=== PATIENT | male | born 1945 | race American Indian/Alaskan Native ===

== ENCOUNTER → 2017-09-18 12:40 | Outpatient (CLI) | payer MEDICARE, MEDICAID, OTHER, SELFPAY ==
[2017-09-18 16:02] LABS: Hep C Virus Ab w/Reflex Quant NEGATIVE s/c (NEGATIVE)
== END ==
PROVIDERS: Family Provider Family Medicine; PCP Family Medicine; Visit Provider Internal Medicine Gastroenterology
DX: Z11.59 Encounter for screening for other viral diseases (principal)
CPT/HCPCS: 36415; 86803

== ENCOUNTER 2018-11-25 07:22 | Emergency (ER) | payer MEDICARE, MEDICAID, OTHER, SELFPAY ==
[2018-11-25] VITALS (7 sets, daily range): BP systolic 110–154; BP diastolic 80–94; PULSE 86–138; RESP 10–20; TEMP 36.3; O2SAT 100; BMI 23.6
--- NOTE | 2018-11-25 07:32 | DI.RAD.S_ITS ---
PROCEDURE: XR CHEST 1V INDICATIONS: short of breath TECHNIQUE: One view of the chest was acquired. COMPARISON: [facility], , CHEST 1 VIEW, 05/03/2017, 11:54. FINDINGS: Surgical changes and devices: None. Lungs and pleura: Mildly prominent. Mild appearance of increased pulmonary vascularity.. There is minimal unchanged blunting of the costophrenic angles. No pneumothorax. Mediastinum: Mediastinal contours appear normal. Heart size is normal. Bones and chest wall: No suspicious bony lesions. Overlying soft tissues appear unremarkable. IMPRESSION: Mild increased vascularity reflective of mild edema. Unchanged costophrenic angle blunting since 2018 likely scarring. Dictated by: Sharda Mackenzie M.D. on 11/25/2018 at 8:03 Approved by: Sharda Mackenzie M.D. on 11/25/2018 at 8:04
--- NOTE | 2018-11-25 07:42 | ED.ARRPALP ---
HPI - Arrhythmia/Palpitations General Chief Complaint: Arrhythmia/Palpitations Stated Complaint: hard time breathing Time Seen by Provider: 11/25/18 07:32 Source: patient Mode of arrival: ambulatory Limitations: no limitations History of Present Illness HPI narrative: 73-year-old male who presents with shortness of breath and chest discomfort. He says he noticed it this morning it feels like it is up in his neck a gets worse whenever he walks. He says that he has a history of 4 stents. Since he ran out of his medications at least 3 weeks ago when he was up in [place]. He returned from [place] 3 weeks ago he had a couple pills left he took some a few days ago. He is called for refills for his medications but he needs to be seen by a physician he does not like the time of the appointment. He can't tell me what medication he is supposed to be on. He says he has some sort of blood thinner but he is not sure what it is. He denies dizziness or lightheadedness. He is noted to be in atrial fibrillation on the monitor he is not sure what that is. Records indicate that he does have a history of atrial fibrillation. He denies any calf pain. MD complaint: rapid heart beat Context: occurred during rest Related Data Home Medications Medication Instructions Recorded Confirmed atorvastatin 40 mg PO BEDTIME #30 05/03/17 11/25/18 ascorbic acid (vitamin C) 1,000 mg PO DAILY 11/25/18 11/25/18 aspirin 81 mg PO DAILY 11/25/18 11/25/18 cyanocobalamin (vitamin B-12) 1,000 mcg PO DAILY 11/25/18 11/25/18 [Vitamin B-12] omeprazole 20 mg PO DAILY 11/25/18 11/25/18 Previous Rx's Medication Instructions Recorded metoprolol succinate 100 mg PO BID #60 ter 05/04/17 aspirin 81 mg PO DAILY #30 tab 11/25/18 atorvastatin 40 mg PO DAILY #30 tab 11/25/18 metoprolol succinate 50 mg PO BID #60 tab 11/25/18 Allergies Allergy/AdvReac Type Severity Reaction Status Date / Time lisinopril [LISINOPRIL] Allergy Unknown Verified 11/25/18 07:38 Review of Systems Review of Systems ROS Unobtainable: All systems reviewed & are unremarkable except as noted in HPI and below Constitutional Constitutional: Denies chills, Denies fever(s), Denies lethargy and Denies weakness Eyes Eyes: Denies change in vision, Denies eye discharge, Denies irritation and Denies loss of vision ENT Ears, Nose, Mouth, and Throat: Denies change in voice, Denies neck pain and Denies sore throat Cardiovascular Cardiovascular: Reports as per HPI, Reports chest pain and Reports dyspnea on exertion Respiratory Respiratory: Denies cough, Reports dyspnea on exertion and Denies wheezing Gastrointestinal Gastrointestinal: Denies abdominal pain, Denies change in bowel habits, Denies diarrhea, Denies nausea and Denies vomiting Genitourinary Genitourinary: Denies hematuria, Denies flank pain, Denies urinary incontinence and Denies urinary urgency Musculoskeletal Musculoskeletal: Denies neck pain Integumentary/Breasts Skin/Breast: Denies pruritus, Denies erythema, Denies rash and Denies wounds Neurologic Neurologic: Denies loss of vision and Denies weakness Allergic/Immunologic Allergic/Immunologic: Denies wheezing [facility] Medical History Anemia (Inactive) Atrial fibrillation (Inactive) Congestive heart failure (Inactive) Ethmoid sinusitis (Inactive) Social History (Updated 11/25/18 @ 07:45 by Amira Govea DO) Smoking Status: Never smoker alcohol intake: current substance use type: does not use Social History Smoking Status: Never smoker alcohol intake: current substance use type: does not use Exam Initial Vital Signs Initial Vital Signs: Vital Signs Temperature 97.3 F L 11/25/18 07:25 Pulse Rate 138 H 11/25/18 07:25 Respiratory Rate 20 11/25/18 07:25 Blood Pressure 135/85 11/25/18 07:25 Pulse Oximetry 100 11/25/18 07:25 GENERAL: Alert older male A&O x3 HEENT: Head atraumatic,EOMI, pupils reactive, face symmetric, moist mucous membranes CARDIOVASCULAR: Irregularly irregular no murmur RESPIRATORY: Breath sounds equal bilaterally, no wheezes rales or rhonchi. ABDOMEN: Soft, nontender. Normoactive bowel sounds all 4 quadrants. No guarding or rebound. : No CVA tenderness EXTREMITIES: Normal range of motion, no clubbing or edema. Neurovascularly intact NEUROLOGICAL: Alert and oriented x4.Normal gait and speech. SKIN: Warm, dry, no laceration, no petechiae, no rashes or lesions. Course Orders Ordered: ED Orders 11/25/18 11:00 Troponin I Stat Discontinued Medications Diltiazem HCl (Cardizem) 10 mg IV NOW ONE Stop: 11/25/18 07:33 Last Admin: 11/25/18 07:45 Dose: 10 mg Documented by: SARA Diltiazem HCl (Cardizem Cd) 180 mg PO NOW ONE Stop: 11/25/18 08:34 Last Admin: 11/25/18 09:08 Dose: 180 mg Documented by: SARA Furosemide (Lasix) 20 mg IV NOW ONE Stop: 11/25/18 08:34 Last Admin: 11/25/18 09:09 Dose: 20 mg Documented by: SARA Sodium Chloride (Normal Saline 0.9%) 1,000 mls @ 150 mls/hr IV CONT BALJIT Last Infusion: 11/25/18 12:30 Dose: 0 mls/hr Documented by: Admin: 11/25/18 07:46 Dose: 150 mls/hr Documented by: SARA Vital Signs Vital signs: Vital Signs - 8 hr 11/25/18 11:01 11/25/18 12:00 11/25/18 12:35 Pulse Rate 107 H 103 H 86 Respiratory Rate 17 12 19 Blood Pressure 122/89 Blood Pressure [Left Arm] 118/91 H 121/82 Pulse Oximetry 100 100 100 MDM - Arrhythmia/Palpitations Lab Data Attestation: I reviewed the patient's lab results. Result diagrams: 11/25/18 07:30 11/25/18 07:30 Labs: Lab Results 11/25/18 11/25/18 11/25/18 Range/Units 07:30 07:30 07:30 WBC 4.8 (4.5-11.0) X10^3/uL RBC 4.10 L (4.5-5.9) X10^6/uL Hgb 8.5 L (13.5-17.5) g/dL Hct 27.9 L (41-53) % MCV 68.1 L (80-100) fL MCH 20.7 L (26-34) PG MCHC 30.3 (30-36) % RDW 17.6 H (11.6-14.8) % Plt Count 244 (150-400) X10^3/uL Neut % (Auto) Not Reportable Lymph % (Auto) Not Reportable Coke % (Auto) Not Reportable Eos % (Auto) Not Reportable Baso % (Auto) Not Reportable Lymph # (Auto) Not Reportable Coke # (Auto) Not Reportable Baso # (Auto) Not Reportable Total Counted 100 Seg Neutrophils % 50.0 (38-70) % Lymphocytes % (Manual) 34.0 (25-45) % Atypical Lymphs % 3.0 H ( - 0) % Monocytes % (Manual) 6.0 (2-11) % Eosinophils % (Manual) 7.0 H (2-4) % Neutrophils # (Manual) 2400 L (0909-6164) /uL RBC Morphology Not Reportable Poikilocytosis 1+ H Anisocytosis 2+ H PT 10.9 (10.1-12.7) SECONDS INR 0.9 (0.9-1.3) APTT 29 (26.4-36.2) SECONDS Sodium 132 L (137-145) mmol/L Potassium 4.7 (3.4-5.1) mmol/L Chloride 94 L (98-107) mmol/L Carbon Dioxide 22 (22-32) mmol/L BUN 22 H (9-20) mg/dL Creatinine 2.30 H (0.66-1.25) mg/dL Estimated GFR 28.1 L (>60) mL/min BUN/Creatinine Ratio 9.6 (6-22) Glucose 86 (80-110) mg/dL Calcium 9.0 (8.4-10.2) mg/dL Magnesium 2.0 (1.6-2.3) mg/dL Total Bilirubin 0.7 (0.2-1.3) mg/dL AST 24 (17-59) IU/L ALT 13 L (21-72) IU/L Alkaline Phosphatase 147 H (38-126) U/L Total Creatine Kinase 58 (55-170) U/L CK-MB (CK-2) TNP CK-MB (CK-2) Rel Index TNP Troponin I 0.019 (0.01-0.034) ng/mL B-Natriuretic Peptide 906 H (<100) Total Protein 7.8 (6.3-8.2) g/dL Albumin 4.2 (3.5-5.0) g/dL Globulin 3.6 (1.7-4.1) g/dL Albumin/Globulin Ratio 1.2 (1.0-2.8) TSH (0.47-4.68) uIU/mL 11/25/18 11/25/18 Range/Units 07:30 11:00 WBC (4.5-11.0) X10^3/uL RBC (4.5-5.9) X10^6/uL Hgb (13.5-17.5) g/dL Hct (41-53) % MCV (80-100) fL MCH (26-34) PG MCHC (30-36) % RDW (11.6-14.8) % Plt Count (150-400) X10^3/uL Neut % (Auto) Lymph % (Auto) Coke % (Auto) Eos % (Auto) Baso % (Auto) Lymph # (Auto) Coke # (Auto) Baso # (Auto) Total Counted Seg Neutrophils % (38-70) % Lymphocytes % (Manual) (25-45) % Atypical Lymphs % ( - 0) % Monocytes % (Manual) (2-11) % Eosinophils % (Manual) (2-4) % Neutrophils # (Manual) (1729-9193) /uL RBC Morphology Poikilocytosis Anisocytosis PT (10.1-12.7) SECONDS INR (0.9-1.3) APTT (26.4-36.2) SECONDS Sodium (137-145) mmol/L Potassium (3.4-5.1) mmol/L Chloride (98-107) mmol/L Carbon Dioxide (22-32) mmol/L BUN (9-20) mg/dL Creatinine (0.66-1.25) mg/dL Estimated GFR (>60) mL/min BUN/Creatinine Ratio (6-22) Glucose (80-110) mg/dL Calcium (8.4-10.2) mg/dL Magnesium (1.6-2.3) mg/dL Total Bilirubin (0.2-1.3) mg/dL AST (17-59) IU/L ALT (21-72) IU/L Alkaline Phosphatase (38-126) U/L Total Creatine Kinase (55-170) U/L CK-MB (CK-2) CK-MB (CK-2) Rel Index Troponin I 0.018 (0.01-0.034) ng/mL B-Natriuretic Peptide (<100) Total Protein (6.3-8.2) g/dL Albumin (3.5-5.0) g/dL Globulin (1.7-4.1) g/dL Albumin/Globulin Ratio (1.0-2.8) TSH 1.43 (0.47-4.68) uIU/mL Imaging Data Chest x-ray: Radiologist's impression: PROCEDURE: XR CHEST 1V INDICATIONS: short of breath TECHNIQUE: One view of the chest was acquired. COMPARISON: [facility], , CHEST 1 VIEW, 05/03/2017, 11:54. FINDINGS: Surgical changes and devices: None. Lungs and pleura: Mildly prominent. Mild appearance of increased pulmonary vascularity.. There is minimal unchanged blunting of the costophrenic angles. No pneumothorax. Mediastinum: Mediastinal contours appear normal. Heart size is normal. Bones and chest wall: No suspicious bony lesions. Overlying soft tissues appear unremarkable. IMPRESSION: Mild increased vascularity reflective of mild edema. Unchanged costophrenic angle blunting since 2018 likely scarring. Dictated by: Sharda Mackenzie M.D. on 11/25/2018 at 8:03 Venous US: Radiologist's impression: PROCEDURE: US [facility] VENOUS LOW EXTREM BI INDICATIONS: SOB, RECENT TRAVEL TECHNIQUE: Real-time imaging, as well as color and pulse Doppler interrogation, were performed of the deep veins of both legs from the inguinal ligament to the popliteal fossa. COMPARISON: [facility], , PERIPH.JEAN-PAUL EXT BILAT, 01/22/2014, 18:34. FINDINGS: Right: The common femoral, femoral and popliteal veins are normally compressible, and free of intraluminal thrombus. Color and pulse Doppler demonstrate normal phasic intravascular flow. There is normal augmentation response to distal compression maneuver. Left: The common femoral, femoral and popliteal veins are normally compressible, and free of intraluminal thrombus. Color and pulse Doppler demonstrate normal phasic intravascular flow. There is normal augmentation response to distal compression maneuver. Within the right popliteal fossa there is a small hypoechoic fluid collection measuring approximately 1.5 x 0.4 x 0.5 cm which is nonspecific and may represent a small Zavala's cyst. IMPRESSION: 1. No evidence of deep venous thrombosis in the right or left lower extremities. Dictated by: Samir Santo M.D. on 11/25/2018 at 11:43 ECG Data Attestation: I personally reviewed and interpreted this ECG as follows: Prior ECG tracings: available for review Interpretation: EKG 1. Atrial fibrillation rate [address] changes similar to prior EKG MDM Narrative Medical decision making narrative: The patient has history of atrial fibrillation is noncompliant with his medications unclear like his medications are. He states that he it is on anticoagulation however he does not recognize any of the names of the medication. I have records from when he was admitted at [facility] in April for congestive heart failure. At that time he was not on any anticoagulation medication. Unclear exactly why he is on anticoagulation. He was on aspirin. I received records cardiology from December 2017 which also did not show he was on anticoagulation. Cardiology has him on metoprolol 50 mg twice a day. I have explained to both the patient and it is imperative that he take his medication and see his primary care doctor and he is at high risk for stroke. At this time there is likely are reason patient is not anticoagulated. Today he is noted to be slightly anemic probably not appropriate to start anticoagulation at this time. Patient's heart rate is much better controlled he did get 1 dose of Cardizem orally, 2-troponins. Discharge Plan Departure Patient Disposition: Home Clinical Impression: Atrial fibrillation Qualifiers: Atrial fibrillation type: chronic Qualified Code(s): I48.2 - Chronic atrial fibrillation Discharge Date/Time: 11/25/18 12:35 Activity Restrictions/Additional Instructions: YOU MUST SEE HER DOCTOR AND TAKE YOUR MEDICATION YOU ARE AT RISK OF HAVING A STROKE *You have been diagnosed with atrial fibrillation *What to do: You need to see her doctor and get refills of your correct medications. What is refill today is based off of cardiology records from December 2017. *Continue to take medications as directed Metoprolol 50 mg twice a day Aspirin 81 mg once a day Atorvastatin 40 mg once a day *Follow up with your primary care provider in 2-3 days *Return to ER if you should have increasing chest pain shortness of breath or any new, worsening or concerning symptoms Prescriptions: New metoprolol succinate 50 mg tablet extended release 24 hr 50 mg PO BID Qty: 60 RF: 0 atorvastatin 40 mg tablet 40 mg PO DAILY Qty: 30 RF: 0 aspirin 81 mg tablet,delayed release (DR/EC) 81 mg PO DAILY Qty: 30 RF: 0 No Action atorvastatin 40 MG tablet 40 mg PO BEDTIME Qty: 30 RF: 0 metoprolol succinate 100 MG tablet extended release 24 hr 100 mg PO BID Qty: 60 RF: 0 aspirin 81 mg Tablet,Delayed Release (Dr/Ec) 81 mg PO DAILY RF: 0 ascorbic acid (vitamin C) 500 mg Tablet 1,000 mg PO DAILY RF: 0 omeprazole 20 mg Capsule,Delayed Release(Dr/Ec) 20 mg PO DAILY RF: 0 cyanocobalamin (vitamin B-12) [Vitamin B-12] 500 MCG tablet 1,000 mcg PO DAILY RF: 0 Referrals: Venus Gallo MD [Primary Care Provider] -
[2018-11-25] MEDS: dilTIAZem 5 MG/ML SDV 10 MG IV (07:45)
[2018-11-25] MEDS: SODIUM CHLORIDE 0.9% 1,000 ML 150 ML IV (07:46)
[2018-11-25 07:49] LABS: INR 0.9 (0.9-1.3); Prothrombin Time 10.9 SECONDS (10.1-12.7)
[2018-11-25 07:52] LABS: PTT Partial Thromboplastin Tim 29 SECONDS (26.4-36.2)
[2018-11-25 07:53] LABS: Alanine Aminotransferase 13 IU/L (21-72); Albumin 4.2 g/dL (3.5-5.0); Albumin Globulin Ratio 1.2 (1.0-2.8); Alkaline Phosphatase 147 U/L (38-126); Aspartate Aminotransferase 24 IU/L (17-59); BUN Creatinine Ratio 9.6 (6-22); Bilirubin Total 0.7 mg/dL (0.2-1.3); Blood Urea Nitrogen 22 mg/dL (9-20); Carbon Dioxide 22 mmol/L (22-32); Chloride 94 mmol/L (98-107); Creatine Kinase 58 U/L (55-170); Estimated Glomerular Filt Rate 28.1 mL/min (>60); Globulin 3.6 g/dL (1.7-4.1); Glucose 86 mg/dL (80-110); HEMOLYSIS < 15 (0-50); Potassium 4.7 mmol/L (3.4-5.1); Sodium 132 mmol/L (137-145); Total Protein 7.8 g/dL (6.3-8.2)
[2018-11-25 07:56] LABS: Hematocrit 27.9 % (41-53); Hemoglobin 8.5 g/dL (13.5-17.5); Mean Corpuscular HGB Conc 30.3 % (30-36); Mean Corpuscular Hemoglobin 20.7 PG (26-34); Mean Corpuscular Volume 68.1 fL (80-100); Platelet Count 244 X10^3/uL (150-400); Red Cell Distribution Width 17.6 % (11.6-14.8); White Blood Cell Count 4.8 X10^3/uL (4.5-11.0)
[2018-11-25 07:59] LABS: Add Manual Diff / Slide Review YES
[2018-11-25 08:05] LABS: Troponin I 0.019 ng/mL (0.01-0.034)
[2018-11-25 08:25] LABS: Neutrophils Absolute Manual 2400 /uL (3000-5900); Thyroid Stimulating Hormone 1.43 uIU/mL (0.47-4.68); Total Cells Counted 100
[2018-11-25 08:26] LABS: Anisocytosis 2+; Poikilocytosis 1+
[2018-11-25 08:31] LABS: B Type Natriuretic Peptide 906 (<100)
--- NOTE | 2018-11-25 08:33 | DI.US.S_ITS ---
PROCEDURE: US PERIP VENOUS LOW EXTREM BI INDICATIONS: SOB, RECENT TRAVEL TECHNIQUE: Real-time imaging, as well as color and pulse Doppler interrogation, were performed of the deep veins of both legs from the inguinal ligament to the popliteal fossa. COMPARISON: [facility], , PERIP.JEAN-PAUL EXT BILAME, 01/22/2014, 18:34. FINDINGS: Right: The common femoral, femoral and popliteal veins are normally compressible, and free of intraluminal thrombus. Color and pulse Doppler demonstrate normal phasic intravascular flow. There is normal augmentation response to distal compression maneuver. Left: The common femoral, femoral and popliteal veins are normally compressible, and free of intraluminal thrombus. Color and pulse Doppler demonstrate normal phasic intravascular flow. There is normal augmentation response to distal compression maneuver. Within the right popliteal fossa there is a small hypoechoic fluid collection measuring approximately 1.5 x 0.4 x 0.5 cm which is nonspecific and may represent a small Zavala's cyst. IMPRESSION: 1. No evidence of deep venous thrombosis in the right or left lower extremities. Dictated by: Samir Santo M.D. on 11/25/2018 at 11:43 Approved by: Samir Santo M.D. on 11/25/2018 at 11:45
[2018-11-25] MEDS: dilTIAZem CD 180 MG CAP PO (09:08)
[2018-11-25] MEDS: FUROSEMIDE 20 MG/2 ML VIAL IV (09:09)
[2018-11-25 11:36] LABS: Troponin I 0.018 ng/mL (0.01-0.034)
== END 2018-11-25 12:35 | disposition home or self-care (01) ==
PROVIDERS: Emergency Provider Emergency Medicine; Family Provider Family Medicine; PCP Family Medicine
DX: I48.2 Chronic atrial fibrillation (principal); Z79.82 Long term (current) use of aspirin
CPT/HCPCS: 36415; 36591; 71045; 80053; 82550; 83735; 83880; 84443; 84484; 85025; 85610; 85730; 93005; 93010; 93970; 96361; 96374; 96375; 99284; 99285; J1940

== ENCOUNTER 2018-11-30 09:05 | Observation (INO) | payer MEDICARE, MEDICAID, OTHER, SELFPAY ==
[2018-11-30] VITALS (13 sets, daily range): BP systolic 105–127; BP diastolic 59–83; PULSE 74–109; RESP 12–20; TEMP 36.4–36.9; O2SAT 93–100; BMI 22.6
--- NOTE | 2018-11-30 09:20 | ED_ITS ---
HPI - Chest Pain General Chief Complaint: Chest Pain Stated Complaint: difficulty breathing/heart hurts Time Seen by Provider: 11/30/18 09:19 Source: patient and family (sister) Mode of arrival: ambulatory Limitations: no limitations History of Present Illness HPI narrative: This is a 73-year-old male comes in with complaint of shortness of breath and chest pain. Patient states that he woke up this morning about 5:00 a.m. and it has continued. He states he finally got annoyed so he came in. He did take his normal home medications. He describes shortness of breath worse when he lays flat. He states when he sits up it feels a little bit better. Had a little bit of cough today which was worse on lying flat and was improved when upright. Patient has been nonproductive with his cough. He describes the pain on the left side without any radiation. He states it is not pleuritic. He has not had any fevers or chills. Denies any diaphoresis. No abdominal pain. No swelling in his lower extremities no issues with bowel movements or urination. He denies any lightheadedness or presyncope. Patient states he was off some of his medications while visiting family in [place], he restarted them about 3 weeks ago. Takes a baby aspirin daily, Lasix, atorvastatin, metoprolol, Mepron, vitamin-C and B12. He has had 4 cardiac stents he states that the last evaluation of his heart was several years ago. Chad barnes sees Dr. Danielle is his PCP. He does not smoke tobacco, he states he drinks a lot about every other day but does not quantify exactly what that means. He does occasionally smoke marijuana but no other illicit Related Data Home Medications Medication Instructions Recorded Confirmed ascorbic acid (vitamin C) 1,000 mg PO DAILY 11/25/18 11/30/18 cyanocobalamin (vitamin B-12) 1,000 mcg PO DAILY 11/25/18 11/30/18 [Vitamin B-12] omeprazole 20 mg PO DAILY 11/25/18 11/30/18 furosemide 40 mg PO DAILY 11/30/18 11/30/18 Previous Rx's Medication Instructions Recorded aspirin 81 mg PO DAILY #30 tab 11/25/18 atorvastatin 40 mg PO DAILY #30 tab 11/25/18 metoprolol succinate 50 mg PO BID #60 tab 11/25/18 Allergies Allergy/AdvReac Type Severity Reaction Status Date / Time lisinopril [LISINOPRIL] Allergy Unknown Verified 11/30/18 09:25 Review of Systems Review of Systems ROS Unobtainable: All systems reviewed & are unremarkable except as noted in HPI and below Constitutional Constitutional: Denies chills, Denies fever(s), Denies lethargy and Denies weakness Cardiovascular Cardiovascular: Reports chest pain, Reports chest pain at rest, Denies diaphoresis, Denies syncope, Denies rapid heart rate, Denies edema, Denies irregular heart rhythm, Denies lightheadedness, Denies palpitations, Reports dyspnea, Denies dyspnea on exertion and Reports orthopnea Respiratory Respiratory: Denies change in phlegm color, Denies chest congestion, Reports cough, Denies pain on inspiration, Denies pain with cough, Reports dyspnea, Denies dyspnea on exertion and Denies wheezing Gastrointestinal Gastrointestinal: Denies abdominal pain, Denies change in bowel habits, Denies diarrhea, Denies nausea and Denies vomiting Genitourinary Genitourinary: Denies hematuria, Denies dysuria, Denies flank pain, Denies urinary frequency, Denies urinary hesitancy, Denies urinary incontinence and Denies urinary urgency Musculoskeletal Musculoskeletal: Denies back pain Integumentary/Breasts Skin/Breast: Denies rash Neurologic Neurologic: Denies syncope and Denies weakness Endocrine Endocrine: Denies palpitations Allergic/Immunologic Allergic/Immunologic: Denies wheezing [facility] Medical History (Updated 11/30/18 @ 11:58 by Liliana Amaya DO) Anemia (Inactive) Atrial fibrillation (Inactive) Congestive heart failure (Inactive) Ethmoid sinusitis (Inactive) History of myocardial infarction (Acute) Surgical History (Updated 11/30/18 @ 10:00 by Rhonda Bustos RN) History of coronary artery stent placement (Acute) Social History (Updated 11/30/18 @ 09:36 by Liliana Amaya DO) household members: family Smoking Status: Never smoker alcohol intake: current substance use type: does not use and marijuana Social History (Updated 11/30/18 @ 09:36 by Liliana Amaya DO) household members: family Smoking Status: Never smoker alcohol intake: current substance use type: does not use and marijuana Exam Narrative Exam Narrative: GENERAL: Alert and oriented x three, pale male in no acute distress. HEENT: Head normocephalic, atraumatic, EOMI, pupils reactive, face symmetric, moist mucous membranes NECK: Supple, full range of motion CARDIOVASCULAR: Irregularly irregular rate and rhythm without murmurs, rubs or gallops. No JVD. No swelling in lower extremities. RESPIRATORY: Breath sounds equal bilaterally, no wheezes, mild crackles at bases, no rales or rhonchi. No tachypnea or accessory muscle use. ABDOMEN: Soft, nontender. Normoactive bowel sounds all 4 quadrants. No guarding or rebound, rigidity, no mass : No CVA tenderness EXTREMITIES: Normal range of motion. Neurovascularly intact NEUROLOGICAL: Cranial nerves II through XII grossly intact. Moving all extremities SKIN: Warm, dry, no petechiae, no rashes or lesions. Initial Vital Signs Initial Vital Signs: Vital Signs Temperature 97.7 F 11/30/18 09:05 Pulse Rate 104 H 11/30/18 09:05 Respiratory Rate 18 11/30/18 09:05 Blood Pressure 114/80 11/30/18 09:05 Pulse Oximetry 98 11/30/18 09:05 Course Orders Ordered: ED Orders 11/30/18 10:06 Type and Screen Stat 11/30/18 11:42 EC echo doppler complete Stat Acetaminophen (Tylenol) 650 mg PO Q6HR PRN PRN Reason: As Needed for Fever/Mild Pain Al Hydrox/Mg Hydrox/Simethicone (Maalox Plus) 30 ml PO Q6HR PRN PRN Reason: Dyspepsia Ascorbic Acid (Vitamin C) 1,000 mg PO DAILY [facility] Aspirin (Aspirin Ec) 81 mg PO DAILY [facility] Atorvastatin Calcium (Lipitor) 40 mg PO DAILY [facility] Bisacodyl (Dulcolax) 10 mg [place] DAILY PRN PRN Reason: Constipation Calcium Carbonate (Tums) 1,000 mg PO Q4HR PRN PRN Reason: Dyspepsia Cyanocobalamin (Vitamin B-12) 1,000 mcg PO DAILY [facility] Furosemide (Lasix) 40 mg PO DAILY [facility] Heparin Sodium (Porcine) (Heparin) 5,000 unit SUBCUT BID [facility] Metoprolol Succinate (Toprol Xl) 50 mg PO BID [facility] Ondansetron HCl (Zofran) 4 mg IV Q8HR PRN PRN Reason: Nausea And Vomiting Pantoprazole Sodium (Protonix) 20 mg PO 0600 BALJIT Discontinued Medications Aspirin (Aspirin Chew) 324 mg PO NOW ONE Stop: 11/30/18 09:21 Last Admin: 11/30/18 09:48 Dose: 324 mg Documented by: BIANKA Furosemide (Lasix) 40 mg IV NOW ONE Stop: 11/30/18 09:33 Last Admin: 11/30/18 09:48 Dose: 40 mg Documented by: BIANKA Sodium Chloride (Normal Saline 0.9%) 1,000 mls @ 150 mls/hr IV CONT BALJIT Last Admin: 11/30/18 09:49 Dose: Not Given Documented by: BIANKA Morphine Sulfate (Morphine) 2 mg IV NOW ONE Stop: 11/30/18 09:33 Last Admin: 11/30/18 09:48 Dose: 2 mg Documented by: BIANKA Ondansetron HCl (Zofran) 4 mg IV NOW ONE Stop: 11/30/18 09:53 Last Admin: 11/30/18 09:55 Dose: 4 mg Documented by: BIANKA Vital Signs Vital signs: Vital Signs - 8 hr 11/30/18 11:03 11/30/18 11:18 11/30/18 11:31 Pulse Rate 86 85 92 H Respiratory Rate 18 20 Blood Pressure [Right Arm] 117/73 Pulse Oximetry 99 MDM - Chest Pain Lab Data Attestation: I reviewed the patient's lab results. Result diagrams: 11/30/18 09:10 11/30/18 09:10 Labs: Lab Results 11/30/18 11/30/18 11/30/18 Range/Units 09:10 09:10 09:10 WBC 6.8 (4.5-11.0) X10^3/uL RBC 4.20 L (4.5-5.9) X10^6/uL Hgb 8.7 L (13.5-17.5) g/dL Hct 28.5 L (41-53) % MCV 67.9 L (80-100) fL MCH 20.8 L (26-34) PG MCHC 30.6 (30-36) % RDW 17.4 H (11.6-14.8) % Plt Count 305 (150-400) X10^3/uL Neut % (Auto) 55.9 (50-75) % Lymph % (Auto) 26.5 (25-40) % [place] % (Auto) 12.5 (3-14) % Eos % (Auto) 3.3 (2-4) % Baso % (Auto) 1.8 (0-2) % Neut # (Auto) 3800 (2669-5779) /uL Lymph # (Auto) 1800 (7793-8505) /uL [place] # (Auto) 800 (0-900) /uL Eos # (Auto) 200 (0-450) /uL Baso # (Auto) 100 (0-100) /uL RBC Morphology Not Reportable Hypochromasia 2+ H Anisocytosis 2+ H Microcytosis 1+ H [place] Cells 1+ H Acanthocytes (Spur) 1+ Schistocytes 1+ H PT 11.1 (10.1-12.7) SECONDS INR 1.0 (0.9-1.3) APTT 29 (26.4-36.2) SECONDS Sodium 131 L (137-145) mmol/L Potassium 4.6 (3.4-5.1) mmol/L Chloride 94 L (98-107) mmol/L Carbon Dioxide 23 (22-32) mmol/L BUN 30 H (9-20) mg/dL Creatinine 2.40 H (0.66-1.25) mg/dL Estimated GFR 26.7 L (>60) mL/min BUN/Creatinine Ratio 12.5 (6-22) Glucose 85 (80-110) mg/dL Calcium 9.0 (8.4-10.2) mg/dL Magnesium 2.0 (1.6-2.3) mg/dL Total Bilirubin 0.8 (0.2-1.3) mg/dL AST 24 (17-59) IU/L ALT 9 L (21-72) IU/L Alkaline Phosphatase 170 H (38-126) U/L Total Creatine Kinase 42 L (55-170) U/L CK-MB (CK-2) TNP CK-MB (CK-2) Rel Index TNP Troponin I 0.013 (0.01-0.034) ng/mL B-Natriuretic Peptide 1030 H (<100) Total Protein 8.0 (6.3-8.2) g/dL Albumin 4.3 (3.5-5.0) g/dL Globulin 3.7 (1.7-4.1) g/dL Albumin/Globulin Ratio 1.2 (1.0-2.8) Lipase 233 (23-300) U/L Blood Type Antibody Screen 11/30/18 Range/Units 10:06 WBC (4.5-11.0) X10^3/uL RBC (4.5-5.9) X10^6/uL Hgb (13.5-17.5) g/dL Hct (41-53) % MCV (80-100) fL MCH (26-34) PG MCHC (30-36) % RDW (11.6-14.8) % Plt Count (150-400) X10^3/uL Neut % (Auto) (50-75) % Lymph % (Auto) (25-40) % [place] % (Auto) (3-14) % Eos % (Auto) (2-4) % Baso % (Auto) (0-2) % Neut # (Auto) (0170-4903) /uL Lymph # (Auto) (4920-2456) /uL [place] # (Auto) (0-900) /uL Eos # (Auto) (0-450) /uL Baso # (Auto) (0-100) /uL RBC Morphology Hypochromasia Anisocytosis Microcytosis [place] Cells Acanthocytes (Spur) Schistocytes PT (10.1-12.7) SECONDS INR (0.9-1.3) APTT (26.4-36.2) SECONDS Sodium (137-145) mmol/L Potassium (3.4-5.1) mmol/L Chloride (98-107) mmol/L Carbon Dioxide (22-32) mmol/L BUN (9-20) mg/dL Creatinine (0.66-1.25) mg/dL Estimated GFR (>60) mL/min BUN/Creatinine Ratio (6-22) Glucose (80-110) mg/dL Calcium (8.4-10.2) mg/dL Magnesium (1.6-2.3) mg/dL Total Bilirubin (0.2-1.3) mg/dL AST (17-59) IU/L ALT (21-72) IU/L Alkaline Phosphatase (38-126) U/L Total Creatine Kinase (55-170) U/L CK-MB (CK-2) CK-MB (CK-2) Rel Index Troponin I (0.01-0.034) ng/mL B-Natriuretic Peptide (<100) Total Protein (6.3-8.2) g/dL Albumin (3.5-5.0) g/dL Globulin (1.7-4.1) g/dL Albumin/Globulin Ratio (1.0-2.8) Lipase (23-300) U/L Blood Type O Positive Antibody Screen Negative Urine Dip Bedside Urine Glucose Negative Bedside Urine Bilirubin - Negative Bedside Urine Ketone - Negative Urine Specific [place] 1.010 Bedside Urine Occult Blood - Negative Bedside Urine pH 6.5 Bedside Urine Protein - Negative Bedside Urine Urobilinogen - Negative Bedside Urine Nitrite - Negative Bedside Urine Leukocytes - Negative Esterase Imaging Data Chest x-ray: Radiologist's impression: [address] [id number] XRay Report Signed Patient: Ulisses Anderson DMR#: [id number] : 6Acct:[id number] Age/Sex: 73 / MDate of Service: 11/30/18 Loc: ED Accession Number: [id number] Procedure: XR chest 1V Ordering Provider: Liliana Amaya D.O. PROCEDURE: XR CHEST 1V INDICATIONS: chest pain TECHNIQUE: One view of the chest was acquired. [facility], 7:56. FINDINGS: Surgical changes and devices: None. Lungs and pleura: Diffuse interstitial prominence appears stable to slightly improved compared to recent radiographs. Mild hyperaeration and flattening of the hemidiaphragms. No focal consolidation. No pleural effusions or pneumothorax. Mediastinum: The cardiomediastinal contours remain stable. Heart size is normal. Bones and chest wall: No suspicious bony lesions. Overlying soft tissues appear unremarkable. IMPRESSION: Stable to slight improvement in diffuse interstitial prominence with changes compatible with chronic obstructive pulmonary physiology. No focal consolidation. Dictated by: Paulo Davison M.D. on 11/30/2018 at 8:58 Approved by: Paulo Davison M.D. on 11/30/2018 at 9:00 ECG Data Attestation: I personally reviewed and interpreted this ECG as follows: Interpretation: Her AFib with RVR, rate of 103 QRS of 105 and QTC of 436. No ST elevation depression is appreciated. Nonspecific changes. Patient has prior EKG from 11/25/2018 which appears similar MDM Narrative Medical decision making narrative: Patient's chest x-ray shows stable changes. Patient has slight crackles and clinically appears to have some CHF. Patient does have anemia, hemoglobin is 8.7 consistent with 8.5 on 11/25/2018. Patient does not have an elevated white count, he has a microcytic anemia. Patient's creatinine is 2.4 with a BUN of 30. Patient is slightly hyponatremic and h ypochloremic. His troponin is negative but BNP is 1030, priors have been in the 900 and 800 range. The patient was given Lasix 40 mg, 3 additional aspirin as he had his morning a SA and a dose of morphine. On recheck patient is a% with ambulation. Chest pain has improved. Spoke with Dr. ferrer I would like to keep patient for chest pain observation, his atrial fibrillation is rate controlled, he had some Lasix and is starting to diurese. He does have a significant cardiac history and did come in with complaint of chest pain. I suspect this is secondary to his chest but would like to keep him for observation. She requested consultation with Cardiology. I spoke with Dr. Wright, he does not recommend stress testing currently, he would like to get echo they are available today and he will read the echo. He will call Dr. Ramos with the results with plan for serial enzymes and further recommendations pending ECHO. Discussed recommendations and she accepts for observation. We do not have stress testing available for several more days. Discharge Plan Departure Patient Disposition: Admitted as Observation Clinical Impression: Chest pain, Atrial fibrillation, CHF (congestive heart failure) Discharge Date/Time: 11/30/18 12:46 Referrals: Venus Gallo MD [Primary Care Provider] - Admit Date/Time: 11/30/18 12:12 Admit Provider: Deanne Ramos
[2018-11-30 09:29] LABS: Add Manual Diff / Slide Review NO; Basophils Absolute Auto 100 /uL (0-100); Basophils Percent Auto 1.8 % (0-2); Eosinophils Absolute Auto 200 /uL (0-450); Eosinophils Percent Auto 3.3 % (2-4); Hematocrit 28.5 % (41-53); Hemoglobin 8.7 g/dL (13.5-17.5); Lymphocytes Absolute Auto 1800 /uL (1100-4500); Lymphocytes Percent Auto 26.5 % (25-40); Mean Corpuscular HGB Conc 30.6 % (30-36); Mean Corpuscular Hemoglobin 20.8 PG (26-34); Mean Corpuscular Volume 67.9 fL (80-100); Monocytes Absolute Auto 800 /uL (0-900); Monocytes Percent Auto 12.5 % (3-14); Neutrophils Absolute Auto 3800 /uL (1500-7000); Neutrophils Percent Auto 55.9 % (50-75); Platelet Count 305 X10^3/uL (150-400); Prothrombin Time 11.1 SECONDS (10.1-12.7); Red Cell Distribution Width 17.4 % (11.6-14.8); White Blood Cell Count 6.8 X10^3/uL (4.5-11.0)
[2018-11-30 09:32] LABS: PTT Partial Thromboplastin Tim 29 SECONDS (26.4-36.2)
[2018-11-30 09:35] LABS: Alanine Aminotransferase 9 IU/L (21-72); Albumin 4.3 g/dL (3.5-5.0); Albumin Globulin Ratio 1.2 (1.0-2.8); Alkaline Phosphatase 170 U/L (38-126); Aspartate Aminotransferase 24 IU/L (17-59); BUN Creatinine Ratio 12.5 (6-22); Bilirubin Total 0.8 mg/dL (0.2-1.3); Blood Urea Nitrogen 30 mg/dL (9-20); Carbon Dioxide 23 mmol/L (22-32); Chloride 94 mmol/L (98-107); Creatine Kinase 42 U/L (55-170); Estimated Glomerular Filt Rate 26.7 mL/min (>60); Globulin 3.7 g/dL (1.7-4.1); Glucose 85 mg/dL (80-110); HEMOLYSIS < 15 (0-50); Lipase 233 U/L (23-300); Potassium 4.6 mmol/L (3.4-5.1); Sodium 131 mmol/L (137-145)
[2018-11-30 09:41] LABS: B Type Natriuretic Peptide 1030 (<100)
[2018-11-30 09:45] LABS: Acanthocytes 1+; Burr Cells 1+
[2018-11-30 09:46] LABS: Anisocytosis 2+; Hypochromasia 2+; Microcytosis 1+; Schistocytes 1+; Troponin I 0.013 ng/mL (0.01-0.034)
[2018-11-30] MEDS: MORPHINE 2 MG/ML INJ IV (09:48)
[2018-11-30] MEDS: ASPIRIN 81 MG CHEW TAB 324 MG PO (09:48)
[2018-11-30] MEDS: FUROSEMIDE 40 MG/4 ML VIAL IV (09:48)
[2018-11-30] MEDS: ONDANSETRON 4 MG/2 ML INJ IV (09:55)
--- NOTE | 2018-11-30 10:03 | PC.NURSE ---
Pt states it may be time to quit drinking. States he drinks 8 beers through a day. Has stopped before and has not experienced DT's per his report. Offered supportive services but declined.
--- NOTE | 2018-11-30 11:42 | DI.ECHO.S_ITS ---
[facility] +---------+ [facility] +---------+ : : [address] [place] : : : : [id number] : : : : Phone: [phone] Echocardiogram Report + + :Name: LUCRETIA JOHN Study Date: 11/30/2018 Height: 69 in : :[facility] Weight: 158 lb : : Gender: Male BSA: 1.9 m2 : :: 1945 Age: 73 yrs BP: 117/73 mmHg: :Reason For Study: Atrial fibrillation, CHF : :Ordering Physician: Alfredo : :Hospitalist Performed By: Nancy Montenegro : :Referring: JOSE DAVID [place] : + + Interpretation Summary 1) Mildly to moderate enlarged left size with moderately reduced systolic function (EF 30-35%). 2) Moderate global hypokinesis with akinesis of the mid inferolateral wall. 3) The right ventricle is mildly dilated with mildly reduced function. 4) Severe biatrial enlargement (left worse than right). 5) Moderate mitral regurgitation, which appears functioning. 6) Mild atherosclerotic plaque(s) in the aortic arch. 7) Compared to the Echo done 04/20/2017, LVEF has decreased from 40-45% to 30- 35% on this study. Procedure: A two-dimensional transthoracic echocardiogram with color flow and Doppler was performed. The study quality was technically adequate. Comparison is made with the echocardiogram of 04/20/2017. The patient was in atrial fibrillation with heart rates between 76-115 bpm during the exam. Left Ventricle: The left ventricle is mild-moderately dilated. There is no ventricular septal defect visualized. The ejection fraction is estimated to be 30-35%. Moderate global hypokinesis with akinesis of the mid inferolateral wall. Diastolic function could not be accurately assessed due to atrial fibrillation. Right Ventricle: The right ventricle is mildly dilated. Right ventricular systolic function is mildly reduced. Atria: There is severe biatrial enlargement. There is no Doppler evidence for an interatrial shunt. Mitral Valve: The mitral valve is normal in structure but abnormal in function. There is moderate mitral regurgitation. Aortic Valve: The aortic valve is trileaflet. The aortic valve opens well. The aortic valve is slightly calcified. There is trace aortic regurgitation. Tricuspid Valve: The tricuspid valve leaflets are thin and pliable. There is mild tricuspid regurgitation. The right ventricular systolic pressure is estimated to be at least 32 mmHg based on an estimated right atrial pressure of 3 mm Hg. Pulmonic Valve: The pulmonic valve is not well seen, but is grossly normal. Great Vessels: The aortic root is normal size. The ascending aorta is at the upper limits of normal in size. The aortic arch is normal in size. Mild atherosclerotic plaque(s) in the aortic arch. The IVC is of normal diameter and collapses greater than 50% with a sniff. This suggests a low right atrial pressure of 3 mm Hg. Pericardium/ Pleura There is no pericardial effusion. MMode/2D Measurements & Calculations LVIDd: 6.3 cm LVOT diam: 2.3 cm LVIDs: 5.6 cm Ao root diam: 3.3 cm FS: 11.1 % asc Aorta Diam: 3.3 cm EPSS: 1.6 cm Ao Arch Diam (Prox Trans): 2.9 cm IVSd: 0.97 cm LVPWd: 0.71 cm LV fitzpatrick. diameter/BSA (cm/m^2): 3.3 LV sys. diameter/BSA (cm/m^2): 3.0 LA A2 area: 33.1 cm2 RA long axis: 6.2 cm LA A4 area: 33.1 cm2 RA area: 26.7 cm2 LA length (vol): 6.9 cm RA vol: 97.7 ml LA vol: 135.5 ml RA : 52.3 ml/m2 LA vol index: 72.5 ml/m2 IVC diam: 2.0 cm RVD1 (basal): 4.0 cm RVD2 (mid): 3.2 cm TAPSE: 1.0 cm Doppler Measurements & Calculations Ao V2 max: 106.7 cm/sec LVOT Max Agustin: 52.7 cm/sec Ao V2 mean: 72.5 cm/sec LV V1 max P.1 mmHg Ao max P.6 mmHg LV V1 VTI: 8.9 cm Ao mean P.3 mmHg MATI(I,D): 2.0 cm2 Ao V2 VTI: 19.4 cm MATI(V,D): 2.1 cm2 sev ratio: 0.46 MATI indexed to BSA (cm^2/m^2): 1.0 MV E max agustin: 95.1 cm/sec TR max agustin: 268.9 cm/sec Med Peak E' Agustin: 6.1 cm/sec TR max P.1 mmHg E/E' med: 15.6 PA V2 max: 45.2 cm/sec Lat Peak E' Agustin: 9.4 cm/sec PA V2 mean: 31.6 cm/sec E/E' lat: 10.2 PA mean P.45 mmHg E/e' average: 12.9 PA Accel Time: 0.06 sec MV P1/2t: 38.3 msec MR ERO: 0.13 cm2 MV P1/2t max agustin: 95.1 cm/sec MR flow rate: 61.3 cm3/sec MVA(P1/2t): 5.7 cm2 MR PISA radius: 0.50 cm SV(LVOT): 38.1 ml Reading Physician:01:17 PM
--- NOTE | 2018-11-30 13:44 | PC.ADMIT ---
Patient sba to transf from stretcher to bed. Steady on feet, denies hx of falls. Rates pain to left upper chest area 2/10. States overall he feels much better than when he first came in. Reports mild sob at rest, then describes it as mostly hard to breathe through is nose, with recent sinus issues. Does not appear at all distressed. Calm, speaks in complete sentences, no dyspnea. No edema. Tele in place. Admits to 8 beers a day. Last drink was last night. Denies bowel or bladder issues. Reports wt loss of approx 11 lbs within the last 6 months or so. Attributes to heavy drinking. Urinal provided to patient, Bed alarm in place. Discussed need to call for assist oob. Confirms understanding. Provided Ice water. Fluid restriction noted, and adhered to. Provided tuna sandwich. call light in reach, instructed to call for needs. [id number] [facility] Admission Note: The patient,Ulisses Anderson,73 y/o, was given written information regarding hospital policies, unit procedures and contact persons. Patient's smoking status: Never smoker. Vital Signs - 8 hr 11/30/18 09:05 11/30/18 09:22 11/30/18 09:30 Temperature 97.7 F Pulse Rate 104 H 94 H 91 H Respiratory Rate 18 18 16 Blood Pressure 114/80 Blood Pressure [Right Arm] 108/75 108/74 Pulse Oximetry 98 98 100 11/30/18 10:11 11/30/18 11:03 11/30/18 11:18 Temperature Pulse Rate 109 H 86 85 Respiratory Rate 12 18 20 Blood Pressure Blood Pressure [Right Arm] 125/83 117/73 Pulse Oximetry 11/30/18 11:31 11/30/18 12:18 11/30/18 12:39 Temperature 97.7 F Pulse Rate 92 H 88 88 Respiratory Rate 18 15 Blood Pressure 127/75 Blood Pressure [Right Arm] 105/65 Pulse Oximetry 99 95 100 11/30/18 13:21 Temperature 97.7 F Pulse Rate 88 Respiratory Rate 18 Blood Pressure 127/75 Blood Pressure [Right Arm] Pulse Oximetry 100
[2018-11-30 16:16] LABS: Creatine Kinase 33 U/L (55-170)
[2018-11-30 16:29] LABS: Troponin I < 0.012 ng/mL (0.01-0.034)
[2018-11-30] MEDS: HEPARIN 5,000 UNIT/ML VIAL 5000 UNIT SUBCUT (21:52)
[2018-11-30] MEDS: METOPROLOL ER 50 MG TABLET PO (21:53)
--- NOTE | 2018-11-30 22:04 | P.HP_ITS ---
History of Present Illness History of Present Illness Date Patient Seen: 11/30/18 Time Patient Seen: 22:08 Chief complaint: difficulty breathing/heart hurts Narrative: Patient is a 73-year-old male with PMH of HTN, AFIB, Patient reports waking up this morning at 6:00 a.m. with chest discomfort and palpitations. Associated symptoms include shortness of breath. Reports occasional non-productive cough. He does not endorse orthopnea or peripheral edema. However does note occasional shortness of breath with exertion. Describes chest discomfort as an ache localized on the left upper torso. There is no radiation to the extremities, back, neck, or jaw. Denies diaphoresis. Denies dizziness, lightheadedness and syncopal events. Denies hemoptysis. Has not had any abdominal pain, nausea, or vomiting. Patient states that night prior he when out to drinking. Notes drinking beer. He is unable to tell me how much alcohol he consumed. Reports longstanding history alcohol dependence. Reports daily use of marijuana. He does not monitor his sodium or fluid intake. Patient does have underlying HTN. He has not been checking his blood pressures. Known to have CAD with prior AK and 4 cardiac stents. Takes aspirin, metoprolol, furosemide, and atorvastatin. Patient states that he was out of state, visiting family in [place]. During that time frame he had a 2 week period where he ran out of his medications. He returned on 10/31 and at that time resumed his home medications. ED presentation & workup Labs, 11/30 @ 9:10 am WBC 6.8, HGB 8.7, PLT 305 PT 11.1, INR 1, aPTT 29 NA 131, K 4.6, Mg 2.0, Cl 94, Ca 9.0 Glu 85 CO2 23, BUN 30, Cr 2.4 AST 24, ALT 9, Alk Phos 170, T.Bili 0.8, Lipase 233 CK 42 Trop 0.013 and < 0.012, BNP 1030 CXR. Stable to slight improvement in diffuse interstitial prominence with changes compatible with chronic obstructive pulmonary physiotherapy. No focal consolidation. Echo, 11/30/18. LVEF 30-35%, moderately reduced systolic function. This is a decrease from 40-45% since 04/2017. LV w/ [id number] dilatation. Moderate global hypokinesis with akinesis of the mid inferior lateral wall. Right ventricle is mildly dilated with mildly reduced function. Severe biatrial enlargement, left worse than right. Moderate MR. Mild atherosclerotic plaques in the aortic arch. In ED received ASA 324 mg, 40 mg IV Lasix, 2 mg IV morphine, and 4 mg IV Zofran. Patient is being admitted for chest pain. Patient History Medical History Anemia (Inactive) Atrial fibrillation (Inactive) Congestive heart failure (Inactive) Ethmoid sinusitis (Inactive) History of myocardial infarction (Acute) Surgical History History of coronary artery stent placement (Acute) Social History (Updated 11/30/18 @ 09:36 by Liliana Amaya DO) household members: family Smoking Status: Never smoker alcohol intake: current substance use type: does not use and marijuana Family & Social History Social History: household members family Prior Living Arrangements House Safety & Behavioral: Feels Safe in Current Yes Environment Been Physically Hurt or No Threatened By a Person Suicidal Ideation Description None Suicide Plan Description No Plan Tobacco & Substance use: Smoking Status Never smoker alcohol intake current alcohol intake frequency 3 or more drinks per day Substance Use Type marijuana, daily Meds Home Medications and Allergies Home Medications Medication Instructions Recorded Confirmed Type ascorbic acid (vitamin C) 1,000 mg PO DAILY 11/25/18 11/30/18 History aspirin 81 mg PO DAILY #30 tab 11/25/18 11/30/18 Rx atorvastatin 40 mg PO DAILY #30 tab 11/25/18 11/30/18 Rx cyanocobalamin (vitamin B-12) 1,000 mcg PO DAILY 11/25/18 11/30/18 History [Vitamin B-12] metoprolol succinate 50 mg PO BID #60 tab 11/25/18 11/30/18 Rx omeprazole 20 mg PO DAILY 11/25/18 11/30/18 History furosemide 40 mg PO DAILY 11/30/18 11/30/18 History Allergies Allergy/AdvReac Type Severity Reaction Status Date / Time lisinopril [LISINOPRIL] Allergy Unknown Verified 11/30/18 09:25 Review of Systems Review of Systems ROS Unobtainable: All systems reviewed & are unremarkable except as noted in HPI and below Exam Vital Signs (past 8 hours): - 11/30/18 15:00 11/30/18 15:30 11/30/18 21:00 Temperature 97.6 F 98.4 F Pulse Rate 74 92 H Respiratory Rate 18 18 Blood Pressure 107/59 L 105/66 Pulse Oximetry 93 100 100 Oxygen Delivery Method Room Air Oxygen Flow Rate 0 Narrative Exam Narrative: Constitutional: NAD Neurologic: AOx3, no focal neurological deficits Head: NC, AT Eyes: PERRL, EOMI, Ears: external ears normal, no otorrhea, very hard of hearing Nose: external nose normal, no rhinorrhea or epistaxis Throat: MMM, oropharynx w/o exudate Neck: no masses, lymphadenopathy, or JVD Chest / Respiratory: equal chest rise, unlabored respiratory effort, no dyspnea or tachypnea w/ conversation on presentation patient was laying in supine position, turned to the left, he was tolerating and did not appear to be orthopneic on room air Heart / CV: irregularly irregular, no murmur Abdomen / GI: round, NT, ND, + BS, no organomegaly : no suprapubic tenderness, no CVA Peripheral / Vascular: warm to touch, DP and PT pulses palpable, no edema Musc: full ROM of upper and lower extremities, adequate muscle tone and bulk Skin: no ecchymosis or suspicious lesions / ulcers Objective Labs Result Diagrams: 11/30/18 09:10 11/30/18 09:10 Labs: Laboratory Results - last 24 hr 11/30/18 11/30/18 11/30/18 09:10 09:10 09:10 WBC 6.8 RBC 4.20 L Hgb 8.7 L Hct 28.5 L MCV 67.9 L MCH 20.8 L MCHC 30.6 RDW 17.4 H Plt Count 305 Neut % (Auto) 55.9 Lymph % (Auto) 26.5 [place]eton % (Auto) 12.5 Eos % (Auto) 3.3 Baso % (Auto) 1.8 Neut # (Auto) 3800 Lymph # (Auto) 1800 [place]eton # (Auto) 800 Eos # (Auto) 200 Baso # (Auto) 100 RBC Morphology Not Reportable Hypochromasia 2+ H Anisocytosis 2+ H Microcytosis 1+ H Crissy Cells 1+ H Acanthocytes (Spur) 1+ Schistocytes 1+ H PT 11.1 INR 1.0 APTT 29 Sodium 131 L Potassium 4.6 Chloride 94 L Carbon Dioxide 23 BUN 30 H Creatinine 2.40 H Estimated GFR 26.7 L BUN/Creatinine Ratio 12.5 Glucose 85 Calcium 9.0 Magnesium 2.0 Total Bilirubin 0.8 AST 24 ALT 9 L Alkaline Phosphatase 170 H Total Creatine Kinase 42 L CK-MB (CK-2) TNP CK-MB (CK-2) Rel Index TNP Troponin I 0.013 B-Natriuretic Peptide 1030 H Total Protein 8.0 Albumin 4.3 Globulin 3.7 Albumin/Globulin Ratio 1.2 Lipase 233 Blood Type Antibody Screen 11/30/18 11/30/18 10:06 15:45 WBC RBC Hgb Hct MCV MCH MCHC RDW Plt Count Neut % (Auto) Lymph % (Auto) Teton % (Auto) Eos % (Auto) Baso % (Auto) Neut # (Auto) Lymph # (Auto) Teton # (Auto) Eos # (Auto) Baso # (Auto) RBC Morphology Hypochromasia Anisocytosis Microcytosis Crissy Cells Acanthocytes (Spur) Schistocytes PT INR APTT Sodium Potassium Chloride Carbon Dioxide BUN Creatinine Estimated GFR BUN/Creatinine Ratio Glucose Calcium Magnesium Total Bilirubin AST ALT Alkaline Phosphatase Total Creatine Kinase 33 L CK-MB (CK-2) TNP CK-MB (CK-2) Rel Index TNP Troponin I < 0.012 B-Natriuretic Peptide Total Protein Albumin Globulin Albumin/Globulin Ratio Lipase Blood Type O Positive Antibody Screen Negative Assessment & Plan Assessment & Plan narrative: Patient is being admitted for chest pain. Patient is known to have CAD (w/ history of AK and cardiac stenting x4), persistent AFIB, HFrEF 30-35%, and HTN. Chest pain is localized to the left aspect of anterior chest. It is non-radiating and is not associated with paresthesia. At time of the event patient reports palpitations, nausea and shortness of breath. No associated symptoms of diaphoresis, dizziness or lightheadedness. Earlier in the night, 6-12 hours preceding the event, patient was out consuming alcohol. He is known to have longstanding, significant history of EtOH use. Patient also has advanced CKD, stage IV with associated renal anemia and HGB level in the 8 g/dL range. Chest pain, acute, present on admission, active Chest pain, likely in the setting of AFIB-RVR, potentially precipitated by re cent EtOH use HEART Score 6 (moderte suspicion 1+, non-specific repolarization disturbance 1+, age > 65 2+, >3 RF 2+, initial trop 0 ANSLEY Score 4 (age 1+, RF 1+, CAD 1+, ASA 1+) Trop negative x2 - In ED received, ASA and morphine w/ resolution of symptoms. No further recurrence. - risk stratify: check FLP - continue DENTAL ASSISTANT MEDICAL ASSISTANT regimen of ASA, statin, and B - etoh cessation highly encouraged - echo revealed reduced LVEF of 30-35% (decline from 04/2017). Moderate global hypokinesis w/ akinesis of the mid-inferior lateral wall, encouraged adherence to medication regimen and follow-up w/ cardiology. AFib-RVR, acute, present on admission, resolved - No longer in rapid ventricular rate. Currently rate controlled in the 80s per print project manager - resume DENTAL ASSISTANT MEDICAL ASSISTANT metoprolol - on ASA 81 mg daily, no other anti-coagulation [id number] systolic heart failure, present on admission, resolved Potentially brought on by an acute AFIB episode. BNP 1030 (typically has been near 900). CXR is not indicative of HF. Patient does not appear to be in volume access on exam. Received 40 mg IV of furosemide in ED at 0948, since then diuresed 1100. - resume DENTAL ASSISTANT MEDICAL ASSISTANT regimen of furosemide. No need for additional or aggressive diuresis. Potentially, there was degree of heart failure exacerbated in the setting of atrial fibrillation. In additon, patient has advanced CKD, Stage IV. BNP is not necessarily sensitive marker of heart failure. The elevation from baseline is mild is. 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 Likely multi-factorial, ie in the setting of nutritional deficiencies and advanced CKD. No active signs/symptoms of bleeding - iron studies, b12/folate - in lieu of patient's underlying heart disease, it would be beneficial to keep his HGB level greater than 8 Hypertension, chronic condition, present on admission, stable - normotensive, continue trending BPs, resume DENTAL ASSISTANT MEDICAL ASSISTANT metoprolol EtOH dependence, chronic condition, present on admission, active Longstanding history (since youth) of EtOH dependence. Patient is unable to quantify quantity used, however does note it to be significant. Denies prior history of EtOH with draw. Last reported during prior to midnight on 12/01. - check EtOH level (negative) - EtOH cessation highly encouraged - monitor for s/s of EtOH withdrawal Code status discussed. Patient wishes to be full code. Designates brother as proxy decision maker. Home medications reviewed and reconciled accordingly. VTE prophylaxis with SCDs and Heparin
[2018-12-01 00:10] VITALS: BP 109/68; PULSE 95; RESP 16; TEMP 36.5; O2SAT 100
[2018-12-01 00:15] VITALS: O2SAT 100
[2018-12-01 00:21] LABS: Ethanol (ETOH) < 10 mg/dL
[2018-12-01 04:50] VITALS: BP 106/72; PULSE 114; RESP 16; TEMP 36.6; O2SAT 100
[2018-12-01 06:24] LABS: Hemoglobin 8.1 g/dL (13.5-17.5)
[2018-12-01 06:30] LABS: Cholesterol 96 mg/dL (140-199); HDL Cholesterol 39 mg/dL (40-60); LDL Cholesterol Calculated 42 mg/dL (<100); Triglycerides 73 mg/dL (35-150)
[2018-12-01 06:31] LABS: Albumin 3.7 g/dL (3.5-5.0); BUN Creatinine Ratio 12.2 (6-22); Blood Urea Nitrogen 33 mg/dL (9-20); Calcium 8.8 mg/dL (8.4-10.2); Carbon Dioxide 28 mmol/L (22-32); Chloride 97 mmol/L (98-107); Estimated Glomerular Filt Rate 23.3 mL/min (>60); Glucose 92 mg/dL (80-110); HEMOLYSIS < 15 (0-50); Phosphorous 4.5 mg/dL (2.3-3.7); Potassium 4.1 mmol/L (3.4-5.1); Sodium 132 mmol/L (137-145)
[2018-12-01] MEDS: PANTOPRAZOLE 20 MG TABLET PO (06:34)
[2018-12-01 06:36] LABS: HEMOLYSIS < 15 (0-50); Iron 14 ug/dL (49-181)
[2018-12-01 06:46] LABS: Percent Iron Saturation 3 % (20-50); Total Iron Binding Capacity 410 ug/dL (261-462); Transferrin 323 mg/dL (206-381)
[2018-12-01 07:36] LABS: Folate 12.3 ng/mL (2.76-20.0); Vitamin B12 663 pg/mL (239-931)
[2018-12-01 07:42] LABS: Troponin I < 0.012 ng/mL (0.01-0.034)
[2018-12-01 08:00] VITALS: BP 112/60; PULSE 69; RESP 18; TEMP 36.4; O2SAT 100
--- NOTE | 2018-12-01 08:34 | CM.DANOTE ---
Upon initial assessment this DCP found patient sitting up eating his breakfast watching TV. Patient happy to be going home where he lives with his sister. Patient denies any difficulties at home. States he has no problems with ADLs, attaining his medications or getting to his various MD visits. Sonya TIME CLOCK REPAIRER yesterday thought he'd benefit from PT evaluation, so Dr. Ramos has ordered it for first thing this am. Patient's only wish is to get home before the [employer] game. DELIVERY CREW WORKER stated that patient had one person stand by last night.
[2018-12-01 09:30] VITALS: O2SAT 100
[2018-12-01] MEDS: FUROSEMIDE 40 MG TABLET PO (10:14)
[2018-12-01] MEDS: ASCORBIC ACID 500 MG TABLET 1000 MG PO (10:14)
[2018-12-01] MEDS: CYANOCOBALAMIN (VITAMIN B-12) 500 MCG TABLET 1000 MCG PO (10:16)
[2018-12-01] MEDS: ATORVASTATIN 20 MG TABLET 40 MG PO (10:16)
[2018-12-01] MEDS: METOPROLOL ER 50 MG TABLET PO (10:16)
[2018-12-01] MEDS: ASPIRIN EC 81 MG TABLET PO (10:16)
--- NOTE | 2018-12-01 10:26 | PT.IIE ---
Surgical History (Last Reviewed 11/30/18 @ 23:15 by HARRY Hernandez) History of coronary artery stent placement (Acute) Medical History (Last Reviewed 11/30/18 @ 23:15 by HARRY Hernandez) Anemia (Inactive) Atrial fibrillation (Inactive) Congestive heart failure (Inactive) Ethmoid sinusitis (Inactive) History of myocardial infarction (Acute) Physical Therapy Inpatient Evaluation/Re-Eval M1 PT/OT-IP Prior Functional Status Start: 12/01/18 09:30 Freq: NEEDED Status: Active Protocol: Document 12/01/18 10:04 AW (Rec: 12/01/18 10:26 AW [email or web address]) Medical Review Prior Functional Status Medical History Reviewed Yes Diet/Fluid Consistency Regular Communication Able to make needs known Mobility and Gait Pt reports independent functional mobility with no assistive device, but limited in distance due to shortness of breath and fatigue. Activities of Daily Living and IADL's Independent with all ADL/IADL' s, including driving Social History Household Members family Living Arrangements House Number of Floors (Floors) One Floor Number of Stairs To Enter/Railing? 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 Independent, but limited in ambulation distance . M2 PT-IP Current Condition Start: 12/01/18 09:30 Freq: NEEDED Status: Active Protocol: Document 12/01/18 10:04 AW (Rec: 12/01/18 10:26 AW [id number]) Physical Therapy Current Condition Current Condition Evaluation Date 12/01/18 Treatment Diagnosis chest pain, a fib, difficult in walking Onset Date 11/29/18 Weight Bearing Status Weight Bearing Status Full Weight Bearing M3 PT-IP Subjective Start: 12/01/18 09:30 Freq: NEEDED Status: Active Protocol: Document 12/01/18 10:04 AW (Rec: 12/01/18 10:26 AW [id number]) Subjective Physical Therapy Visit Type Type Initial Evaluation Visit Start Time 09:40 Visit Stop Time 10:02 Total Visit Minutes 22 Number of BULLARD OPERATOR Visits 0 Physical Therapy Visit Comments Patient Comments I was hoping to get home before the [employer]! Therapy Pain Assessment Pain When Pain Assessed During Mobility Pain Present Pain Present Denied Pain M4 PT-IP Mobility and Gait Start: 12/01/18 09:30 Freq: NEEDED Status: Active Protocol: Document 12/01/18 10:04 AW (Rec: 12/01/18 10:26 AW [id number]) PT-Bed Mobility Assessment Rolling Type of Rolling Roll to Right Level of Assist Independent Supine to Sit Supine to Sit Independent Sit to Supine Sit to Supine Independent Scooting Scooting to Edge of Bed Independent Scooting Up and Down in Bed Independent PT-Transfer Assessment Sit to and From Stand Sit to and from Stand Independent Equipment Transfer Assistive Device Gait Belt Orthotic/Prosthetic Devices or Brace: No Transfers Transfer Destination Bed Transfer Technique Pt ambulated around the unit and then returned to bed Transfer Ability Level of Assist Independent Comments Mobility Comments Pt required no assist for bed mobility or transfers Gait Assessment Gait Gait Assistance Required: Standby Assistance Distance (Feet) 300 Able to Maintain Weight Bearing Status Yes During Gait Assistive Devices Assistive Device Gait Belt Orthotic/Prosthetic Devices or Brace: No Gait Deviations General Gait Pattern Decreased Stride Length, Decreased Feet Clearance,Wide Based Gait Factors Limiting Gait Function Factors Limiting Gait Function Poor Safety Awareness, Respiratory Distress Comments Gait Comments Pt ambulated ~300 feet using no AD, complained of shortness of breath but maintained SpO2 96-100%. He walks with a wide base of support and endorses unsteadiness with head turns and nods. He refused instruction to speed up or slow down, so formal testing was not undertaken, but he did demonstrate lateral loss of balance with head turns from which he was able to recover with no assist. Stair Climbing Assessment Evaluation Level of Assist On Stairs Standby Assistance Devices Stair Climbing Assistive Devices Left Railing Technique/Endurance Stair Climbing Direction Ascend and Descend Stair Climbing Technique Step Over Step Number of Steps Climbed 3 Query Text: Stair Climbing Set # Repetitions (reps) 1 Comments Stair Climbing Comments SBA for stairs with no loss of balance PT-Balance Assessment Sitting Balance and Reactions Static Sitting Balance Ability Good Dynamic Sitting Balance Ability Good Standing Balance and Reactions Static Standing Balance Ability Good Dynamic Standing Balance Ability Fair Device Used none M5 PT-IP Objective Assessments Start: 12/01/18 09:30 Freq: NEEDED Status: Active Protocol: Document 12/01/18 10:04 AW (Rec: 12/01/18 10:26 AW [id number]) Orientation Orientation/Cognition Level of Alertness Alert Orientation Name,Month,Place,Situation Language Function Ability No Deficits Noted Safety Awareness Decreased Safety Awareness Memory Description No Deficits Noted Gross Range of Motion Upper Extremity ROM Assessment Within Functional Limits Lower Extremity ROM Assessment Within Functional Limits Strength Upper Extremity Strength Assessment Within Functional Limits Lower Extremity Strength Assessment Within Functional Limits Comments Strength Comments Bilateral UE and LE strength grossly 5/5 Coordination Assessment Gross Coordination Gross Coordination Impaired Assessment Finger to Nose Test Minimal Impairment Pronation/Supination Test Normal Performance Coordination Comments Mild dysmetria with finger-to- nose using LUE. Sensation Assessment Sensation Gross Sensation WNL Muscle Tone Muscle Tone WNL Yes M6 PT-IP Treatment Start: 12/01/18 09:30 Freq: NEEDED Status: Active Protocol: Document 12/01/18 10:04 AW (Rec: 12/01/18 10:26 AW [id number]) Physical Therapy Treatment Education Education Provided Safety Other Treatments Other Treatment Performed Discussed possibility of using SPC for ambulation to increase stability/safety, but pt denied need. M7 PT-IP Assessment and Plan Start: 12/01/18 09:30 Freq: NEEDED Status: Active Protocol: Document 12/01/18 10:04 AW (Rec: 12/01/18 10:26 AW [id number]) PT Summary Assessment and Plan Potential Rehabilitation Potential Good Status of Condition at Evaluation Stable Summary Impairments Pain,Coordination,Gait, Activity Tolerance Assessment Summary Pt is a 73 yo man with history of CAD, NC, CVA (affecting equilibrium per pt report), and significant longstanding alcohol dependence. PLOF: Pt reports independence in all functional mobility and ADL's with no assistive device, but does endorse limiting his ambulation distance due to fatigue/shortness of breath. CLOF: Pt required no assist for bed mobility or transfers. SBA required for gait without AD due to unsteadiness/loss of balance with head turns. Pt able to recover balance without therapist assist. Pt required SBA at most for gait and for stairs. No pain reported. Pt did report shortness of breath with >150 feet ambulation, but maintained SpO2 96-100% throughout and was otherwise asymptomatic. BP was 108/67 supine and 113/58 after ambulation. Pt was educated in breathing techniques, including pursed lip breathing and diaphragmatic breathing for improved activity tolerance. Pt appears to be functioning at baseline with no further need for skilled PT in this setting, though he may benefit from outpatient PT to address balance concerns. Frequency of Treatment Frequency Of Treatment Discharge Recommendations To Nursing Amount of Assist Needed Standby Assistance Discharge Recommendations PT Discharge Recommendations Home,Outpatient PT
--- NOTE | 2018-12-01 10:29 | PM.DS.1 ---
History of Present Illness History of Present Illness Date Patient Seen: 11/30/18 Chief complaint: difficulty breathing/heart hurts Narrative: Written by Dawson MCDONALD: Patient is a 73-year-old male with PMH of HTN, AFIB, Patient reports waking up this morning at 6:00 a.m. with chest discomfort and palpitations. Associated symptoms include shortness of breath. Reports occasional non-productive cough. He does not endorse orthopnea or peripheral edema. However does note occasional shortness of breath with exertion. Describes chest discomfort as an ache localized on the left upper torso. There is no radiation to the extremities, back, neck, or jaw. Denies diaphoresis. Denies dizziness, lightheadedness and syncopal events. Denies hemoptysis. Has not had any abdominal pain, nausea, or vomiting. Patient states that night prior he when out to drinking. Notes drinking beer. He is unable to tell me how much alcohol he consumed. Reports longstanding history alcohol dependence. Reports daily use of marijuana. He does not monitor his sodium or fluid intake. Patient does have underlying HTN. He has not been checking his blood pressures. Known to have CAD with prior ND and 4 cardiac stents. Takes aspirin, metoprolol, furosemide, and atorvastatin. Patient states that he was out of state, visiting family in [place]. During that time frame he had a 2 week period where he ran out of his medications. He returned on 10/31 and at that time resumed his home medications. ED presentation & workup Labs, 11/30 @ 9:10 am WBC 6.8, HGB 8.7, PLT 305 PT 11.1, INR 1, aPTT 29 NA 131, K 4.6, Mg 2.0, Cl 94, Ca 9.0 Glu 85 CO2 23, BUN 30, Cr 2.4 AST 24, ALT 9, Alk Phos 170, T.Bili 0.8, Lipase 233 CK 42 Trop 0.013 and < 0.012, BNP 1030 CXR. Stable to slight improvement in diffuse interstitial prominence with changes compatible with chronic obstructive pulmonary physiotherapy. No focal consolidation. Echo, 11/30/18. LVEF 30-35%, moderately reduced systolic function. This is a decrease from 40-45% since 04/2017. LV w/ [id number] dilatation. Moderate global hypokinesis with akinesis of the mid inferior lateral wall. Right ventricle is mildly dilated with mildly reduced function. Severe biatrial enlargement, left worse than right. Moderate MR. Mild atherosclerotic plaques in the aortic arch. In ED received ASA 324 mg, 40 mg IV Lasix, 2 mg IV morphine, and 4 mg IV Zofran. Patient is being admitted for chest pain. Discharge Providers Provider Date of admission: 11/30/18 12:12 Discharge Date: 12/01/18 Primary care physician: Venus Gallo MD Consults: 11/30/18 13:40 Consult to Dietitian, Adult Routine Comment: Reason For Exam: recent wt loss, heavy alcohol intake 12/01/18 08:30 Consult to Physical Therapy Evaluate & Treat Comment: Physician Instructions: Evaluate and Treat Discharge provider: Deanne Ramos DO Summary Hospital Course Hospital Course: Ulisses Anderson is a 73-year-old male with a past medical history significant for CAD (w/ history of ND and cardiac stenting x4), persistent AFIB, HFrEF 30-35%, and hypertension who presented with left substernal chest pain. 1. Chest pain, acute, present on admission. Resolved. -In the setting of mild CHF exacerbation, mild atrial fibrillation with RVR and recent alcohol use. -HEART Score 6 (moderte suspicion 1+, non-specific repolarization disturbance 1+, age > 65 2+, >3 RF 2+, initial trop 0) and ANSLEY Score 4 (age 1+, RF 1+, CAD 1+, ASA 1+). -Serial troponin x 3 were negative. -In ED received, aspirin and morphine with resolution of symptoms. No further recurrence. -Risk stratified with fasting lipid panel which demonstrated adequate lipid control and encourage omega 3. -Continue home aspirin 81 mg daily, atorvastatin 40 mg daily and metoprolol succinate 50 mg twice daily. -Highly encouraged alcohol cessation under physician guidance and if not able to stop to cute down substantially. -Echocardiogram demonstrated reduced LVEF of 30-35% (decline from 04/2017) and moderate global hypokinesis with akinesis of the mid-inferior lateral wall. -Encouraged adherence to medication regimen and follow-up with cardiology in near future. Patient is not a candidate for left heart catheterization with advanced CKD unless emergent and may lead to patient requiring permanent dialysis. 2. Acute atrial fibrillation with RVR, present on admission. Resolved. -Initial HR recorded as 115-130's. No longer in rapid ventricular rate and currently rate controlled in the 70-80s. -Continued home aspirin 81 mg daily. Not on anticoagulation possibly due to alcohol dependence? 3. Acute exacerbation of systolic congestive heart failure, present on admission. Resolved. -Potentially brought on by an acute episode of atrial fibrillation with RVR. -BNP 1030 (typically has been near 900). Chest x-ray is not indicative of HF. Patient does not appear to be volume overloaded on exam but diuresed in ED with furosemide 40 mg IV x1 with 1100cc UOP. -Continued home furosemide 40 mg daily. No need for additional or aggressive diuresis. Potentially, there was degree of heart failure exacerbated in the setting of atrial fibrillation. In additon, patient has advanced CKD, Stage IV. BNP is not necessarily sensitive marker of heart failure. The elevation from baseline is mild is. -Continued strict I&O and daily weights. -Continued to monitor for electrolyte abnormalities and replete as needed. -Echo 11/30, showed reduced LVEF of 30-35%, worsened from 04/2017 4. CKD stage IV, present on admission. Stable. -Suspected complications for renal anemia, hyperparathyroidism and bone disease. -Initial creatinine is 2.4 which is at his baseline of 2.3-2.5. -Continued to monitor renal function daily. -Continued to avoid nephrotoxic agents and optimize renal perfusion. -Alk Phos elevated at 170, likely a component of secondary hyperparathyroidism and he would benefit from an outpatient nephrology referral. 5. Microcytic hypochromic anemia, chronic condition, present on admission. Stable -Hgb 8.7 MCV 67.9 MCH 20.8 RDW 17.4. Likely multi-factorial, ie in the setting of nutritional deficiencies and advanced CKD. -No active signs/symptoms of bleeding -B12/folate were normal. Iron panel demonstrated iron deficiency anemia. In lieu of patient's underlying heart disease, it would be beneficial to keep his hemoglobin level greater than 8.0 and will defer initiating iron supplementation to PCP. 6. Hypertension, chronic, present on admission. Stable. -Continued home metoprolol succinate 50 mg twice daily. 7. EtOH dependence, chronic condition, present on admission, active -Longstanding history (since youth) of EtOH dependence. Patient is unable to quantify amount of use, however, he does note it to be significant. -Denies prior history of alcohol withdraw, DT's or seizure. Last reported use prior to midnight on 12/01. -EtOH level negative -Continued to monitor for signs of alcohol withdrawal in which he did not exhibit during hospitalization. -Highly encouraged alcohol cessation under physician guidance and if not able to stop to cute down substantially. Exam Vital Signs (past 8 hours): - 12/01/18 04:50 12/01/18 08:00 12/01/18 09:30 Temperature 97.8 F 97.6 F Pulse Rate 114 H 69 Respiratory Rate 16 18 Blood Pressure 106/72 112/60 Pulse Oximetry 100 100 100 Oxygen Delivery Method Room Air Oxygen Flow Rate 0 Narrative Exam Narrative: General: Elderly gentleman sitting in bed and in no acute distress, well-developed, well-nourished, appropriately interactive. HEENT: Normocephalic, atraumatic. External ears without defect. Pupils equal, round, and reactive to light. Anicteric sclerae, moist conjunctivae, and no lid lag. Oropharynx free of erythema and cobble stoning with moist mucosa. Neck: Supple with full range of motion. No jugular venous distension. No bruits. No lymphadenopathy or thyromegaly. Cardiovascular: Regular rate and rhythm without murmurs, rubs, or gallops appreciated. Pulmonary: Clear to auscultation bilaterally without crackles, wheezes, or rhonchi. Normal respiratory effort with no use of accessory muscles. Abdomen: Soft, bowel sounds present, nontender, nondistended. No hepatosplenomegaly or masses appreciated. Extremities: No clubbing, cyanosis, or edema. Skin: Normal temperature, turgor, and texture; no rash, ulcers, or subcutaneous nodules appreciated. Neurological: Cranial nerves grossly intact. Psychiatric: Normal mood and affect. Alert and oriented to person, place, and time. Objective Labs Result Diagrams: 12/01/18 06:10 12/01/18 06:10 Labs: Laboratory Results - last 24 hr 11/30/18 11/30/18 11/30/18 09:10 10:06 15:45 Hgb Sodium Potassium Chloride Carbon Dioxide BUN Creatinine Estimated GFR BUN/Creatinine Ratio Glucose Calcium Phosphorus Magnesium Iron TIBC % Saturation Transferrin Total Creatine Kinase 33 L CK-MB (CK-2) TNP CK-MB (CK-2) Rel Index TNP Troponin I < 0.012 Albumin Triglycerides Cholesterol LDL Cholesterol, Calc HDL Cholesterol Vitamin B12 Folate Ethyl Alcohol < 10 Blood Type O Positive Antibody Screen Negative 12/01/18 12/01/18 12/01/18 06:10 06:10 06:10 Hgb 8.1 L Sodium Potassium Chloride Carbon Dioxide BUN Creatinine Estimated GFR BUN/Creatinine Ratio Glucose Calcium Phosphorus Magnesium Iron 14 L TIBC 410 % Saturation 3 L Transferrin 323 Total Creatine Kinase CK-MB (CK-2) CK-MB (CK-2) Rel Index Troponin I Albumin Triglycerides Cholesterol LDL Cholesterol, Calc HDL Cholesterol Vitamin B12 663 Folate 12.3 Ethyl Alcohol Blood Type Antibody Screen 12/01/18 12/01/18 12/01/18 06:10 06:10 06:10 Hgb Sodium 132 L Potassium 4.1 Chloride 97 L Carbon Dioxide 28 BUN 33 H Creatinine 2.70 H Estimated GFR 23.3 L BUN/Creatinine Ratio 12.2 Glucose 92 Calcium 8.8 Phosphorus 4.5 H Magnesium 2.0 Iron TIBC % Saturation Transferrin Total Creatine Kinase CK-MB (CK-2) CK-MB (CK-2) Rel Index Troponin I < 0.012 Albumin 3.7 Triglycerides 73 Cholesterol 96 L LDL Cholesterol, Calc 42 HDL Cholesterol 39 L Vitamin B12 Folate Ethyl Alcohol Blood Type Antibody Screen Discharge Plan Discharge Plan Patient Disposition: Home Discharge comment: Your being discharged home. You are admitted for chest pain which is likely secondary to your worsening heart failure. There were no signs of heart attack based on you EKG and heart enzyme levels. Please follow-up with your primary care physician, Dr. Gallo, in the next week regarding your hospitalization and recommendation for outpatient pharmacological stress test. 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 Danielle. Please try to cut back on your substantial alcohol use as this is likely causing worsening of your heart failure. Please continue your furosemide 40 mg daily and this may need to be adjusted in the future based on your weight. Continue heart failure management including weighing yourself daily, low-sodium diet and fluid restriction 1-2L. Discharge Med Rec/Prescriptions Prescriptions: Continued ascorbic acid (vitamin C) 500 mg Tablet 1,000 mg PO DAILY RF: 0 omeprazole 20 mg Capsule,Delayed Release(Dr/Ec) 20 mg PO DAILY RF: 0 cyanocobalamin (vitamin B-12) [Vitamin B-12] 500 MCG tablet 1,000 mcg PO DAILY RF: 0 metoprolol succinate 50 mg tablet extended release 24 hr 50 mg PO BID Qty: 60 RF: 0 atorvastatin 40 mg tablet 40 mg PO DAILY Qty: 30 RF: 0 aspirin 81 mg tablet,delayed release (DR/EC) 81 mg PO DAILY Qty: 30 RF: 0 furosemide 40 mg Tablet 40 mg PO DAILY RF: 0 Follow up/Referrals: Venus Gallo MD [Primary Care Provider] - Provider Discharge Instructions Diet: Low-fat, Low-sodium and Low-cholesterol Activity: Activity as tolerated Visit Report/Discharge Packet Instructions: DI for Heart Failure, How to Keep Track of Your Weight When You Have Heart Failure, Heart Failure Exacerbations Visit Report Forms: Stroke Signs & Symptoms Discharge Data Primary Care Provider: Venus Gallo Attending Provider: Deanne Ramos Admit Date/Time: 11/30/18 12:12 Discharges patient from system. Discharge Date/Time: 12/01/18 11:10
--- NOTE | 2018-12-01 11:32 | PC.NURSE ---
Discharge- pt had home medications with him, he took those with him at d/c. Denied SOB or chest pain. D/c instructions provided to pt. He states he is not able to read or write. Went over instructions with pt extensively. Also went and spoke with pt's sister at d/c as well. She did not have any idea the pt even had CHF. Encouraged pt to get scale and start weighing himself daily and recording weight. To let his PCP know if there were any changes. He states he has a special education case manager also to help manage his healthcare, encouraged him to contact her as well to try and get additional education regarding CHF and its management. Pt left with RN escort to car with his sister. states he took all belongings with him.
== END 2018-12-01 11:10 | disposition home or self-care (01) ==
LOC: ED 11:58 → AC 12:13
PROVIDERS: Nurse Practitioner Gerontology; Admitting Provider Internal Medicine; Emergency Provider Emergency Medicine; Family Provider Family Medicine; PCP Family Medicine; Visit Provider Internal Medicine
DX: R07.9 Chest pain, unspecified (principal); R06.02 Shortness of breath; I25.2 Old myocardial infarction; F10.20 Alcohol dependence, uncomplicated; D50.9 Iron deficiency anemia, unspecified; N18.4 Chronic kidney disease, stage 4 (severe); I48.91 Unspecified atrial fibrillation
CPT/HCPCS: 36415; 36591; 71045; 80053; 80061; 80069; 80320; 81003; 82550; 82607; 82746; 83540; 83550; 83690; 83735; 83880; 84484; 85018; 85025; 85610; 85730; 86850; 86900; 86901; 93005; 93306; 96374; 96375; 97161; 99284; 99285; G0378; J1644; J1940; J2270; J2405

== ENCOUNTER → 2019-02-03 08:43 | Outpatient (CLI) | payer MEDICARE, MEDICAID, OTHER, SELFPAY ==
[2018-11-30 13:21] VITALS: BMI 22.6
[2019-02-03 09:46] LABS: Creatinine Urine Random 147.4 mg/dL; Protein (Total) Urine Random 81 mg/dL (0-12); Protein Creatinine Ratio Urine 0.54 GRAM/24H
[2019-02-03 09:50] LABS: HEMOLYSIS < 15 (0-50); Hematocrit 36.1 % (41-53); Hemoglobin 11.8 g/dL (13.5-17.5); Iron 45 ug/dL (49-181)
[2019-02-03 09:51] LABS: BUN Creatinine Ratio 9.3 (6-22); Blood Urea Nitrogen 25 mg/dL (9-20); Calcium 9.2 mg/dL (8.4-10.2); Carbon Dioxide 25 mmol/L (22-32); Chloride 104 mmol/L (98-107); Estimated Glomerular Filt Rate 23.3 mL/min (>60); Glucose 91 mg/dL (80-110); HEMOLYSIS < 15 (0-50); Phosphorous 3.9 mg/dL (2.3-3.7); Potassium 4.5 mmol/L (3.4-5.1); Sodium 140 mmol/L (137-145)
[2019-02-03 10:00] LABS: Percent Iron Saturation 13 % (20-50); Total Iron Binding Capacity 334 ug/dL (261-462); Transferrin 254 mg/dL (206-381)
[2019-02-03 10:08] LABS: B Type Natriuretic Peptide 1230 (<100)
[2019-02-06 16:32] LABS: Parathyroid Hormone Int 65 pg/mL (14-64)
== END ==
PROVIDERS: Family Provider Family Medicine; PCP Family Medicine; Visit Provider Student in an Organized Health Care Education/Training Program
DX: N05.9 Unspecified nephritic syndrome with unspecified morphologic changes (principal); I50.32 Chronic diastolic (congestive) heart failure; D50.0 Iron deficiency anemia secondary to blood loss (chronic); D64.9 Anemia, unspecified; E83.30 Disorder of phosphorus metabolism, unspecified; N25.81 Secondary hyperparathyroidism of renal origin; R80.9 Proteinuria, unspecified
CPT/HCPCS: 36415; 80048; 82570; 82728; 83540; 83550; 83880; 83970; 84100; 84156; 85014; 85018

== ENCOUNTER → 2019-02-27 12:11 | Outpatient (CLI) | payer MEDICARE, MEDICAID, OTHER, SELFPAY ==
[2018-11-30 13:21] VITALS: BMI 22.6
--- NOTE | 2019-02-27 | DI.RAD.S_ITS ---
PROCEDURE: XR CHEST 2V INDICATIONS: acute upper respiratory infection TECHNIQUE: 2 views of the chest were acquired. COMPARISON: [facility], STEFFANIE, CHEST 1 VIEW, 05/03/2017, 11:54. [facility], CR, XR CHEST 1V, 11/25/2018, 7:56. [facility], CR, XR CHEST 1V, 11/30/2018, 9:44. FINDINGS: Surgical changes and devices: None. Lungs and pleura: Lungs are clear. No pleural effusions or pneumothorax. Mediastinum: Mediastinal contours are normal. Heart size is normal. Bones and chest wall: No suspicious bony abnormalities. Soft tissues appear unremarkable. IMPRESSION: No acute cardiopulmonary disease. Dictated by: Noemi Sherwood M.D. on 02/27/2019 at 14:51 Approved by: Noemi Sherwood M.D. on 02/27/2019 at 14:52
== END ==
PROVIDERS: PCP Family Medicine; Visit Provider Family Medicine
DX: J06.9 Acute upper respiratory infection, unspecified (principal)
CPT/HCPCS: 71046

== ENCOUNTER 2019-06-20 14:36 | Emergency (ER) | payer MEDICARE, MEDICAID, OTHER, SELFPAY ==
[2018-11-30 13:21] VITALS: BMI 22.6
--- NOTE | 2019-06-20 14:43 | DI.RAD.S_ITS ---
PROCEDURE: XR CHEST 1V INDICATIONS: SOB TECHNIQUE: One view of the chest was acquired. COMPARISON: [facility], CR, XR CHEST 2V, 02/27/2019, 12:11. [facility], CR, XR CHEST 1V, 11/30/2018, 9:44. FINDINGS: Surgical changes and devices: None. Lungs and pleura: Lungs are abnormal with a chronic appearing interstitial prominence likely reflecting prior smoking history. Lung volumes are large. No pleural effusions or pneumothorax. Mediastinum: Mediastinal contours appear normal. Heart size is normal. Bones and chest wall: No suspicious bony lesions. Overlying soft tissues appear unremarkable. IMPRESSION: Suspect prior smoking history. Probable COPD. No definite pneumonia found. Dictated by: Vamsi Baer M.D. on 06/20/2019 at 15:22 Approved by: Vamsi Baer M.D. on 06/20/2019 at 15:23
[2019-06-20 14:45] VITALS: BP 121/88; PULSE 130; RESP 16; TEMP 36.4; O2SAT 99; BMI 26.6
[2019-06-20 14:52] VITALS: BP 121/88; PULSE 96; RESP 18; O2SAT 100
--- NOTE | 2019-06-20 14:54 | ED_ITS ---
HPI - General Adult General Chief complaint: Shortness of Breath/Dyspnea Stated complaint: Hearts not beating right hard time breathing Time Seen by Provider: 06/20/19 14:40 Source: patient Mode of arrival: Ambulatory Limitations: no limitations History of Present Illness HPI narrative: 74-year-old male here for evaluation of shortness of breath. Patient states that last evening he was sitting on his couch when he had an episode of short of breath. No chest pain or palpitations. Does have a history of atrial fibrillation. Not on anticoagulation. States that he has been taking his medications. Also history of coronary artery disease and congestive heart failure. States he is taking Lasix every other day per recommendation from his escape wheel tooth cutter. No fevers. States that he did get short of breath walking in from the parking lot however he states that he did not feel like he was more short of breath today in the what he is at baseline. He states that currently he is shortness of breath this potentially better than what it was last evening. Has not tried anything for symptoms prior to arrival. Related Data Home Medications Medication Instructions Recorded Confirmed ascorbic acid (vitamin C) 1,000 mg PO DAILY 11/25/18 11/30/18 cyanocobalamin (vitamin B-12) 1,000 mcg PO DAILY 11/25/18 11/30/18 [Vitamin B-12] omeprazole 20 mg PO DAILY 11/25/18 11/30/18 furosemide 40 mg PO DAILY 11/30/18 11/30/18 Previous Rx's Medication Instructions Recorded aspirin 81 mg PO DAILY #30 tab 11/25/18 atorvastatin 40 mg PO DAILY #30 tab 11/25/18 metoprolol succinate 50 mg PO BID #60 tab 11/25/18 Allergies Allergy/AdvReac Type Severity Reaction Status Date / Time lisinopril [LISINOPRIL] Allergy Unknown Verified 11/30/18 09:25 Review of Systems Constitutional Constitutional: Denies fever(s) and Denies headache(s) ENT Ears, Nose, Mouth, and Throat: Denies headache(s) Cardiovascular Cardiovascular: Denies chest pain, Denies rapid heart rate, Denies irregular heart rhythm, Denies palpitations, Reports dyspnea and Reports dyspnea on exertion Respiratory Respiratory: Denies cough, Reports dyspnea and Reports dyspnea on exertion Gastrointestinal Gastrointestinal: Denies abdominal pain, Denies nausea and Denies vomiting Musculoskeletal Musculoskeletal: Denies myalgias and Denies arthralgias Integumentary/Breasts Skin/Breast: Denies lesions and Denies rash Neurologic Neurologic: Denies headache(s) Endocrine Endocrine: Denies palpitations Hematologic/Lymphatic Hematologic/Lymphatic: Denies easy bleeding and Denies easy bruising Patient History Medical History Anemia (Inactive) Atrial fibrillation (Inactive) Congestive heart failure (Inactive) Ethmoid sinusitis (Inactive) History of myocardial infarction (Acute) Social History household members: family Smoking Status: Never smoker alcohol intake: current substance use type: does not use and marijuana Smoking Status: Never smoker alcohol intake frequency: 3 or more drinks per day Substance Use Type: marijuana Exam Initial Vital Signs Initial Vital Signs: Vital Signs Temperature 97.6 F 06/20/19 14:45 Pulse Rate 130 H 06/20/19 14:45 Respiratory Rate 16 06/20/19 14:45 Blood Pressure 121/88 06/20/19 14:45 Pulse Oximetry 99 06/20/19 14:45 Const General: cooperative, comfortable and well developed Limitations: mental status not altered HENMT Head: normal to inspection and normocephalic Resp Effort & Inspection: normal respiratory effort Auscultation: clear to auscultation bilaterally Cardio Rate: tachycardic Rhythm: abnormal rhythm Pulses: radial pulses present GI Inspection: non-distended Palpation: soft Skin Lesions: no lesions Rashes: no rashes Neuro General: alert, awake and oriented x3 Cognition: normal cognition Speech: speech normal Motor: muscle tone normal throughout Extrem General: normal to inspection, capillary refill normal and No edema Psych Appearance: grossly normal and well kempt Scores GCS Nagi coma scale eye opening: Spontaneous [place] coma scale verbal response: Orientated Nagi coma scale motor response: Obey commands [place] coma scale total score: 15 Course Orders Ordered: ED Orders 06/20/19 14:41 EKG-12 Lead Stat 06/20/19 14:43 XR chest 1V Stat 06/20/19 14:50 Complete Blood Count AUTO DIFF Stat Comprehensive Metabolic Panel Stat Lipase Stat NT-proBNP (BNP-Adult 18+) Stat Partial Thromboplastin Time Stat Prothrombin Time INR Stat Troponin I Stat Discontinued Medications Metoprolol Tartrate (Lopressor) 5 mg IV NOW ONE Stop: 06/20/19 15:12 Last Admin: 06/20/19 15:37 Dose: 5 mg Documented by: SANKET Vital Signs Vital signs: Vital Signs - 8 hr 06/20/19 14:45 06/20/19 14:52 06/20/19 16:00 Temperature 97.6 F Pulse Rate 130 H 96 H 119 H Respiratory Rate 16 18 16 Blood Pressure 121/88 Blood Pressure [Right Arm] 121/88 116/86 Pulse Oximetry 99 100 97 06/20/19 17:01 06/20/19 17:25 Temperature Pulse Rate 121 H 99 H Respiratory Rate 19 17 Blood Pressure Blood Pressure [Right Arm] 124/93 H Pulse Oximetry 99 100 Medical Decision Making Lab Data Lab results reviewed: Yes I reviewed the patient's lab results. Result diagrams: 06/20/19 14:50 06/20/19 14:50 Labs: Lab Results 06/20/19 06/20/19 06/20/19 Range/Units 14:50 14:50 14:50 WBC 5.8 (4.5-11.0) X10^3/uL RBC 4.98 (4.5-5.9) X10^6/uL Hgb 14.9 (13.5-17.5) g/dL Hct 46.5 (41-53) % MCV 93.4 (80-100) fL MCH 29.9 (26-34) PG MCHC 32.0 (30-36) % RDW 15.1 H (11.6-14.8) % Plt Count 196 (150-400) X10^3/uL Neut % (Auto) 60.6 (50-75) % Lymph % (Auto) 16.8 L (25-40) % [place] % (Auto) 15.9 H (3-14) % Eos % (Auto) 5.4 H (2-4) % Baso % (Auto) 1.3 (0-2) % Neut # (Auto) 3500 (3865-9074) /uL Lymph # (Auto) 1000 L (5469-0040) /uL [place] # (Auto) 900 (0-900) /uL Eos # (Auto) 300 (0-450) /uL Baso # (Auto) 100 (0-100) /uL Plt Morphology Comment RBC Morphology See below Poikilocytosis 1+ H PT 11.5 (10.1-12.7) SECONDS INR 1.0 (0.9-1.3) APTT 35 D (26.4-36.2) SECONDS Sodium 143 (137-145) mmol/L Potassium 4.8 (3.4-5.1) mmol/L Chloride 109 H (98-107) mmol/L Carbon Dioxide 23 (22-32) mmol/L BUN 27 H (9-20) mg/dL Creatinine 2.14 H (0.66-1.25) mg/dL Estimated GFR 30.4 L (>60) mL/min BUN/Creatinine Ratio 12.6 (6-22) Glucose 94 (80-110) mg/dL Calcium 9.5 (8.4-10.2) mg/dL Total Bilirubin 0.7 (0.2-1.3) mg/dL AST 44 (17-59) IU/L ALT 34 (<50) IU/L Alkaline Phosphatase 144 H (38-126) U/L Troponin I < 0.012 (0.01-0.034) ng/mL NT-Pro-B Natriuret Pep 99930 H (<125) pg/mL Total Protein 8.7 H (6.3-8.2) g/dL Albumin 4.7 (3.5-5.0) g/dL Globulin 4.0 (1.7-4.1) g/dL Albumin/Globulin Ratio 1.2 (1.0-2.8) Lipase 202 (23-300) U/L Imaging Data Chest x-ray: Radiologist's Impression: [address] [address] XRay Report Signed Patient: Ulisses Anderson [facility]#: [id number] : 6Acct:[id number] Age/Sex: 74 / MDate of Service: 06/20/19 Loc: ED Accession Number: [id number] Procedure: XR chest 1V Ordering Provider: Israel Temple D.O. PROCEDURE: XR CHEST 1V INDICATIONS: SOB TECHNIQUE: One view of the chest was acquired. COMPARISON: [facility], CR, XR CHEST 2V, 02/27/2019, 12:11. [facility], CR, XR CHEST 1V, 11/30/2018, 9:44. FINDINGS: Surgical changes and devices: None. Lungs and pleura: Lungs are abnormal with a chronic appearing interstitial prominence likely reflecting prior smoking history. Lung volumes are large. No pleural effusions or pneumothorax. Mediastinum: Mediastinal contours appear normal. Heart size is normal. Bones and chest wall: No suspicious bony lesions. Overlying soft tissues appear unremarkable. IMPRESSION: Suspect prior smoking history. Probable COPD. No definite pneumonia found. Dictated by: Vamsi Baer M.D. on 06/20/2019 at 15:22 Approved by: Vamsi Baer M.D. on 06/20/2019 at 15:23 ECG Data Attestation: I personally reviewed and interpreted this ECG as follows: Prior ECG tracings: not available for review Interpretation: Atrial fibrillation Ventricular rate of 123 Left axis deviation Normal QRS Normal QTC No ST T wave changes MDM Narrative Medical decision making narrative: Patient is in atrial fibrillation. His heart rate did improve somewhat with IV metoprolol. He states that he is taking his metoprolol on a daily basis. He is not fluid overloaded. His chest x-ray does not show pulmonary edema. He is not hypoxic. Not tachypneic. No pneumonia on chest x-ray. I discussed the case with with Cardiology. She recommended increasing his metoprolol. She would not recommend increasing his Lasix given his kidney function. I did discuss this with him. He is going to weigh himself daily. His escape wheel tooth cutter will contact him at the beginning of next week. Patient was given strict return precautions. Do not feel patient needs admitted to the hospital given his presenting symptoms which appear to be baseline. He expressed understanding and agreement. Discharge Plan Departure Patient Disposition: Home Clinical Impression: SOB (shortness of breath) Atrial fibrillation Qualifiers: Atrial fibrillation type: unspecified Qualified Code(s): I48.91 - Unspecified atrial fibrillation Instructions: DI for Atrial Fibrillation, DI for Shortness of Breath Activity Restrictions/Additional Instructions: I did discuss your case today with Cardiology. They recommended that you increase your metoprolol from 1.5 tabs 2 times a day to 2 tabs 2 times a day. This equals 100 mg of the metoprolol 2 times a day. They also recommended that you continue to take your Lasix/furosemide as directed. I also recommend that y ou weigh yourself on a daily basis. Return to the emergency department for any new symptoms to include chest pain, lightheadedness, worsening breathing issues, or any other concerning symptoms. Prescriptions: No Action ascorbic acid (vitamin C) 500 mg Tablet 1,000 mg PO DAILY RF: 0 omeprazole 20 mg Capsule,Delayed Release(Dr/Ec) 20 mg PO DAILY RF: 0 cyanocobalamin (vitamin B-12) [Vitamin B-12] 500 MCG tablet 1,000 mcg PO DAILY RF: 0 metoprolol succinate 50 mg tablet extended release 24 hr 50 mg PO BID Qty: 60 RF: 0 atorvastatin 40 mg tablet 40 mg PO DAILY Qty: 30 RF: 0 aspirin 81 mg tablet,delayed release (DR/EC) 81 mg PO DAILY Qty: 30 RF: 0 furosemide 40 mg Tablet 40 mg PO DAILY RF: 0 Referrals: Venus Gallo MD [Primary Care Provider] -
[2019-06-20 14:56] LABS: Basophils Absolute Auto 100 /uL (0-100); Eosinophils Absolute Auto 300 /uL (0-450); Hemoglobin 14.9 g/dL (13.5-17.5); Monocytes Absolute Auto 900 /uL (0-900)
[2019-06-20 14:59] LABS: Basophils Percent Auto 1.3 % (0-2); Eosinophils Percent Auto 5.4 % (2-4); Hematocrit 46.5 % (41-53); Lymphocytes Absolute Auto 1000 /uL (1100-4500); Lymphocytes Percent Auto 16.8 % (25-40); Mean Corpuscular Hemoglobin 29.9 PG (26-34); Mean Corpuscular Volume 93.4 fL (80-100); Monocytes Percent Auto 15.9 % (3-14); Neutrophils Absolute Auto 3500 /uL (1500-7000); Neutrophils Percent Auto 60.6 % (50-75); Platelet Count 196 X10^3/uL (150-400); Red Blood Cell Count 4.98 X10^6/uL (4.5-5.9); Red Cell Distribution Width 15.1 % (11.6-14.8); White Blood Cell Count 5.8 X10^3/uL (4.5-11.0)
[2019-06-20 15:01] LABS: Add Manual Diff / Slide Review SLIDE REVIEW; Prothrombin Time 11.5 SECONDS (10.1-12.7)
[2019-06-20 15:04] LABS: PTT Partial Thromboplastin Tim 35 SECONDS (26.4-36.2)
[2019-06-20 15:05] LABS: Alanine Aminotransferase 34 IU/L (<50); Albumin 4.7 g/dL (3.5-5.0); Albumin Globulin Ratio 1.2 (1.0-2.8); Alkaline Phosphatase 144 U/L (38-126); Aspartate Aminotransferase 44 IU/L (17-59); BUN Creatinine Ratio 12.6 (6-22); Bilirubin Total 0.7 mg/dL (0.2-1.3); Blood Urea Nitrogen 27 mg/dL (9-20); Calcium 9.5 mg/dL (8.4-10.2); Carbon Dioxide 23 mmol/L (22-32); Chloride 109 mmol/L (98-107); Estimated Glomerular Filt Rate 30.4 mL/min (>60); Glucose 94 mg/dL (80-110); HEMOLYSIS 22 (0-50); Lipase 202 U/L (23-300); Potassium 4.8 mmol/L (3.4-5.1); Sodium 143 mmol/L (137-145); Total Protein 8.7 g/dL (6.3-8.2)
[2019-06-20 15:17] LABS: NT-proBNP (BNP-Adult 18+) 13900 pg/mL (<125); Troponin I < 0.012 ng/mL (0.01-0.034)
[2019-06-20 15:25] LABS: Poikilocytosis 1+
[2019-06-20] MEDS: METOPROLOL TARTRATE 5 MG/5 ML INJ IV (15:37)
[2019-06-20 16:00] VITALS: BP 116/86; PULSE 119; RESP 16; O2SAT 97
[2019-06-20 17:01] VITALS: BP 124/93; PULSE 121; RESP 19; O2SAT 99
[2019-06-20 17:25] VITALS: PULSE 99; RESP 17; O2SAT 100
== END 2019-06-20 17:30 | disposition home or self-care (01) ==
PROVIDERS: Emergency Provider Emergency Medicine; PCP Family Medicine
DX: R06.02 Shortness of breath (principal); I48.91 Unspecified atrial fibrillation
CPT/HCPCS: 36415; 71045; 80053; 83690; 83880; 84484; 85025; 85610; 85730; 93005; 96374; 99284

== ENCOUNTER 2020-01-12 10:52 | Observation (INO) | payer MEDICARE, MEDICAID, OTHER, SELFPAY ==
[2018-11-30 13:21] VITALS: BMI 22.6
[2020-01-12] VITALS (17 sets, daily range): BP systolic 104–126; BP diastolic 74–92; PULSE 80–149; RESP 17–33; TEMP 36.3–36.8; O2SAT 88–100; BMI 23.8
--- NOTE | 2020-01-12 10:59 | ED.SOB ---
HPI - SOB/Dyspnea General Chief Complaint: Shortness of Breath/Dyspnea Stated Complaint: DIFFICULTY BREATHING Time Seen by Provider: 01/12/20 10:57 Source: patient and family Mode of arrival: Ambulatory Limitations: no limitations History of Present Illness HPI Narrative: 75-year-old male nonsmoker with history of atrial fibrillation, CHF, hypertension and GERD presents with family and a chief complaint of about 1 week ongoing shortness of breath. He denies any runny nose, fever or chills. He denies any significant cough. He has no chest pain. He did not take his medications this morning. MD Complaint: shortness of breath Onset (ago): day(s) Severity: moderate Consistency/Duration: constant Relieving factors: rest Treatment prior to arrival: none Related Data Home oxygen amount: none Home Medications Medication Instructions Recorded Confirmed ascorbic acid (vitamin C) 1,000 mg PO DAILY 11/25/18 01/12/20 omeprazole 20 mg PO DAILY 11/25/18 01/12/20 furosemide 20 mg PO Q OTHER DAY 11/30/18 01/12/20 albuterol sulfate [Ventolin HFA] 2 inh INHALATION TID PRN 01/12/20 01/12/20 cholecalciferol (vitamin D3) 2,000 unit PO DAILY 01/12/20 01/12/20 [Vitamin D3] ferrous sulfate 325 mg PO BID 01/12/20 01/12/20 metoprolol succinate 75 mg PO BID 01/12/20 01/12/20 Previous Rx's Medication Instructions Recorded aspirin 81 mg PO DAILY #30 tab 11/25/18 atorvastatin 40 mg PO DAILY #30 tab 11/25/18 Allergies Allergy/AdvReac Type Severity Reaction Status Date / Time lisinopril [LISINOPRIL] Allergy Unknown Verified 01/12/20 11:04 Review of Systems Constitutional Constitutional: Denies chills, Denies fatigue, Denies fever(s), Denies frequent falls, Denies lethargy and Denies weakness Eyes Eyes: Denies change in vision, Denies eye discharge, Denies irritation and Denies loss of vision ENT Ears, Nose, Mouth, and Throat: Denies change in voice, Denies dizziness, Denies neck pain, Denies sore throat and Denies throat swelling Cardiovascular Cardiovascular: Denies chest pain, Denies irregular heart rhythm, Denies lightheadedness, Denies palpitations, Reports dyspnea, Denies dyspnea on exertion and Denies orthopnea Respiratory Respiratory: Denies cough, Reports dyspnea, Denies dyspnea on exertion and Denies wheezing Gastrointestinal Gastrointestinal: Denies abdominal pain, Denies change in bowel habits, Denies diarrhea, Denies nausea and Denies vomiting Musculoskeletal Musculoskeletal: Denies neck pain and Denies numbness Integumentary/Breasts Skin/Breast: Denies pruritus, Denies erythema, Denies rash and Denies wounds Neurologic Neurologic: Denies behavioral changes, Denies confusion, Denies dizziness, Denies frequent falls, Denies loss of vision, Denies numbness and Denies weakness Psychiatric Psychiatric: Denies anxiety, Denies behavioral changes, Denies confusion, Denies depression, Denies homicidal ideation and Denies suicidal ideation Endocrine Endocrine: Denies fatigue, Denies flushing and Denies palpitations Hematologic/Lymphatic Hematologic/Lymphatic: Denies easy bruising Allergic/Immunologic Allergic/Immunologic: Denies urticaria, Denies throat swelling and Denies wheezing Patient History Medical History Anemia (Inactive) Atrial fibrillation (Inactive) Congestive heart failure (Inactive) Ethmoid sinusitis (Inactive) History of myocardial infarction (Acute) Surgical History History of coronary artery stent placement (Acute) Social History household members: family Smoking Status: Former smoker alcohol intake: current substance use type: does not use and marijuana Smoking Status: Never smoker alcohol intake frequency: 3 or more drinks per day Substance Use Type: marijuana Exam Narrative Exam Narrative: GENERAL: [75] year old patient appears stated age. Well-nourished, well-developed patient, in mild distress. HEAD: Atraumatic. Normocephalic. EYES: Pupils equal round and reactive. Extraocular motions intact. No scleral icterus. No injection or drainage. ENT: Nose without bleeding, purulent drainage. Throat without erythema, tonsillar hypertrophy or exudate. Airway patent. NECK: Trachea midline. Non tender CARDIOVASCULAR: Irregular and tachycardic rhythm without murmurs, gallops, or rubs. RESPIRATORY: Crackles in bilateral bases. GASTROINTESTINAL: Abdomen soft, non-tender, nondistended. EXTREMITIES: No edema or joint tenderness. BACK: Nontender without deformity or crepitance. No flank tenderness. NEURO: AOx3. SKIN: No rash or erythema of visible areas Initial Vital Signs Initial Vital Signs: Vital Signs Temperature 98.1 F 01/12/20 10:55 Pulse Rate 149 H 01/12/20 10:55 Respiratory Rate 24 01/12/20 10:55 Blood Pressure 124/81 01/12/20 10:55 Pulse Oximetry 98 01/12/20 10:55 Course Orders Ordered: ED Orders 01/12/20 11:02 XR chest 1V Stat EKG-12 Lead Stat 01/12/20 11:10 Complete Blood Count AUTO DIFF Stat Comprehensive Metabolic Panel Stat NT-proBNP (BNP-Adult 18+) Stat Procalcitonin Stat Prothrombin Time INR Stat Troponin & CK Cardiac Panel Stat 01/12/20 12:25 COVID19 -ED/INPAT/OR/L&D Stat Acetaminophen (Tylenol) 650 mg PO Q6HR PRN PRN Reason: Fever/Mild Pain (1-3) Ascorbic Acid (Vitamin C) 1,000 mg PO DAILY [facility] Aspirin (Aspirin Ec) 81 mg PO DAILY [facility] Atorvastatin Calcium (Lipitor) 40 mg PO DAILY [facility] Enoxaparin Sodium (Lovenox) 30 mg SUBCUT DAILY [facility] Ferrous Sulfate (Ferrous Sulfate) 325 mg PO BID [facility] Furosemide (Lasix) 40 mg PO DAILY [facility] Metoprolol Succinate (Toprol Xl) 100 mg PO BID [facility] Naloxone HCl (Narcan) 0.2 mg IV Q2MIN PRN PRN Reason: Opiate Reversal Pantoprazole Sodium (Protonix) 20 mg PO DAILY [facility] Vitamin D (Vitamin D3) 2,000 unit PO DAILY [facility] Discontinued Medications Furosemide (Lasix) 40 mg IV NOW ONE Stop: 01/12/20 15:40 Last Admin: 01/12/20 16:08 Dose: 40 mg Documented by: ALVARO Metoprolol Tartrate (Lopressor) 50 mg PO NOW ONE Stop: 01/12/20 11:30 Last Admin: 01/12/20 11:52 Dose: 50 mg Documented by: SANDRITA Metoprolol Tartrate (Lopressor) 5 mg IV NOW ONE Stop: 01/12/20 11:30 Last Admin: 01/12/20 11:52 Dose: 5 mg Documented by: SANDRITA Vital Signs Vital signs: Vital Signs - 8 hr 10/26/20 10:55 01/12/20 10:58 01/12/20 11:00 Temperature 98.1 F Pulse Rate 149 H 148 H 146 H Respiratory Rate 24 19 29 H Blood Pressure 124/81 124/81 126/92 H Pulse Oximetry 98 94 88 L 01/12/20 11:15 01/12/20 11:30 01/12/20 11:45 Temperature Pulse Rate 143 H 139 H 135 H Respiratory Rate 30 H 24 33 H Blood Pressure 113/87 126/88 125/91 H Pulse Oximetry 99 97 98 01/12/20 11:52 01/12/20 12:00 01/12/20 12:15 Temperature Pulse Rate 141 H 141 H 123 H Respiratory Rate 29 H 23 Blood Pressure 125/91 H 106/81 116/90 Pulse Oximetry 98 98 01/12/20 12:30 Temperature Pulse Rate 110 H Respiratory Rate 24 Blood Pressure 107/82 Pulse Oximetry 99 MDM - SOB/Dyspnea Lab Data Result diagrams: 01/12/20 11:10 01/12/20 11:10 Labs: Lab Results 01/12/20 01/12/20 01/12/20 Range/Units 11:10 11:10 11:10 WBC 8.0 (4.5-11.0) X10^3/uL RBC 4.96 (4.5-5.9) X10^6/uL Hgb 14.8 (13.5-17.5) g/dL Hct 45.8 (41-53) % MCV 92.3 (80-100) fL MCH 29.8 (26-34) PG MCHC 32.3 (30-36) % RDW 14.9 H (11.6-14.8) % Plt Count 156 (150-400) X10^3/uL Neut % (Auto) 75.5 H (50-75) % Lymph % (Auto) 8.0 L (25-40) % [place] % (Auto) 12.4 (3-14) % Eos % (Auto) 3.2 (2-4) % Baso % (Auto) 0.9 (0-2) % Neut # (Auto) 6000 (9633-3330) /uL Lymph # (Auto) 600 L (8610-1175) /uL [place] # (Auto) 1000 H (0-900) /uL Eos # (Auto) 300 (0-450) /uL Baso # (Auto) 100 (0-100) /uL PT 12.4 (10.1-12.7) SECONDS INR 1.1 (0.9-1.3) Sodium 137 (137-145) mmol/L Potassium 4.3 (3.4-5.1) mmol/L Chloride 105 (98-107) mmol/L Carbon Dioxide 23 (22-32) mmol/L BUN 36 H (9-20) mg/dL Creatinine 2.34 H (0.66-1.25) mg/dL Estimated GFR 27.4 L (>60) mL/min BUN/Creatinine Ratio 15.4 (6-22) Glucose 95 (80-110) mg/dL Calcium 9.4 (8.4-10.2) mg/dL Total Bilirubin 1.5 H (0.2-1.3) mg/dL AST 25 (17-59) IU/L ALT 20 (<50) IU/L Alkaline Phosphatase 218 H (38-126) U/L Total Creatine Kinase (55-170) U/L CK-MB (CK-2) CK-MB (CK-2) Rel Index Troponin I (0.01-0.034) ng/mL NT-Pro-B Natriuret Pep (<125) pg/mL Total Protein 8.1 (6.3-8.2) g/dL Albumin 4.4 (3.5-5.0) g/dL Globulin 3.7 (1.7-4.1) g/dL Albumin/Globulin Ratio 1.2 (1.0-2.8) Procalcitonin (<0.5) ng/mL COVID-19 PCR (Negative) 01/12/20 01/12/20 01/12/20 Range/Units 11:10 11:10 12:25 WBC (4.5-11.0) X10^3/uL RBC (4.5-5.9) X10^6/uL Hgb (13.5-17.5) g/dL Hct (41-53) % MCV (80-100) fL MCH (26-34) PG MCHC (30-36) % RDW (11.6-14.8) % Plt Count (150-400) X10^3/uL Neut % (Auto) (50-75) % Lymph % (Auto) (25-40) % [place] % (Auto) (3-14) % Eos % (Auto) (2-4) % Baso % (Auto) (0-2) % Neut # (Auto) (0552-7569) /uL Lymph # (Auto) (0652-1805) /uL [place] # (Auto) (0-900) /uL Eos # (Auto) (0-450) /uL Baso # (Auto) (0-100) /uL PT (10.1-12.7) SECONDS INR (0.9-1.3) Sodium (137-145) mmol/L Potassium (3.4-5.1) mmol/L Chloride (98-107) mmol/L Carbon Dioxide (22-32) mmol/L BUN (9-20) mg/dL Creatinine (0.66-1.25) mg/dL Estimated GFR (>60) mL/min BUN/Creatinine Ratio (6-22) Glucose (80-110) mg/dL Calcium (8.4-10.2) mg/dL Total Bilirubin (0.2-1.3) mg/dL AST (17-59) IU/L ALT (<50) IU/L Alkaline Phosphatase (38-126) U/L Total Creatine Kinase 24 L (55-170) U/L CK-MB (CK-2) TNP CK-MB (CK-2) Rel Index TNP Troponin I 0.018 (0.01-0.034) ng/mL NT-Pro-B Natriuret Pep 48951 H (<125) pg/mL Total Protein (6.3-8.2) g/dL Albumin (3.5-5.0) g/dL Globulin (1.7-4.1) g/dL Albumin/Globulin Ratio (1.0-2.8) Procalcitonin < 0.05 (<0.5) ng/mL COVID-19 PCR Negative (Negative) Imaging Data Chest x-ray: Radiologist's Impression: Ulisses Anderson 75 M [address] [address] XRay Report Signed Patient: Ulisses Anderson DMR#: [id number] : 1945cct:[id number] Age/Sex: 75 / MDate of Service: 01/12/20 Loc: ED Accession Number: [id number] Procedure: XR chest 1V Ordering Provider: Beau Varner D.O. PROCEDURE: XR CHEST 1V INDICATIONS: Short of breath TECHNIQUE: One view of the chest was acquired. COMPARISON: [facility], CR, XR CHEST 1V, 11/30/2018, 9:44. [facility], CR, CHEST 1 VIEW, 05/03/2017, 11:54. [facility], CR, XR CHEST 1V, 11/25/2018, 7:56. [facility], CR, XR CHEST 2V, 02/27/2019, 12:11. [facility], CR, XR CHEST 1V, 06/20/2019, 15:10. FINDINGS: Surgical changes and devices: None. Lungs and pleura: On this semiupright portable chest examination, no large pneumothorax or large pleural effusions are seen. No focal infiltrates are seen. Mediastinum: The cardiac contours are mildly enlarged. The aorta demonstrates calcification and tortuosity. Bones and chest wall: No suspicious bony lesions. Overlying soft tissues appear unremarkable. IMPRESSION: Mild cardiomegaly. Dictated by: Daniel Mehta M.D. on 01/12/2020 at 10:45 Approved by: Daniel Mehta M.D. on 01/12/2020 at 10:46 Discharge Plan Departure Patient Disposition: Admitted as Observation Clinical Impression: CHF (congestive heart failure) Atrial fibrillation Qualifiers: Atrial fibrillation type: unspecified Qualified Code(s): I48.91 - Unspecified atrial fibrillation Discharge Date/Time: 01/12/20 13:02 Referrals: Venus Gallo MD [Primary Care Provider] - Admit Date/Time: 01/12/20 12:33 Admit Provider: Winston Zhong
--- NOTE | 2020-01-12 11:02 | DI.RAD.S_ITS ---
PROCEDURE: XR CHEST 1V INDICATIONS: Short of breath TECHNIQUE: One view of the chest was acquired. COMPARISON: [facility], , XR CHEST 1V, 11/30/2018, 9:44. [facility], , CHEST 1 VIEW, 05/03/2017, 11:54. [facility], , XR CHEST 1V, 11/25/2018, 7:56. [facility], , XR CHEST 2V, 02/27/2019, 12:11. [facility], , XR CHEST 1V, 06/20/2019, 15:10. FINDINGS: Surgical changes and devices: None. Lungs and pleura: On this semiupright portable chest examination, no large pneumothorax or large pleural effusions are seen. No focal infiltrates are seen. Mediastinum: The cardiac contours are mildly enlarged. The aorta demonstrates calcification and tortuosity. Bones and chest wall: No suspicious bony lesions. Overlying soft tissues appear unremarkable. IMPRESSION: Mild cardiomegaly. Dictated by: Daniel Mehta M.D. on 01/12/2020 at 10:45 Approved by: Daniel Mehta M.D. on 01/12/2020 at 10:46
[2020-01-12 11:24] LABS: Add Manual Diff / Slide Review NO; Basophils Absolute Auto 100 /uL (0-100); Basophils Percent Auto 0.9 % (0-2); Eosinophils Absolute Auto 300 /uL (0-450); Eosinophils Percent Auto 3.2 % (2-4); Hematocrit 45.8 % (41-53); Hemoglobin 14.8 g/dL (13.5-17.5); Lymphocytes Absolute Auto 600 /uL (1100-4500); Mean Corpuscular HGB Conc 32.3 % (30-36); Mean Corpuscular Hemoglobin 29.8 PG (26-34); Mean Corpuscular Volume 92.3 fL (80-100); Monocytes Absolute Auto 1000 /uL (0-900); Monocytes Percent Auto 12.4 % (3-14); Neutrophils Absolute Auto 6000 /uL (1500-7000); Neutrophils Percent Auto 75.5 % (50-75); Platelet Count 156 X10^3/uL (150-400); Red Blood Cell Count 4.96 X10^6/uL (4.5-5.9); Red Cell Distribution Width 14.9 % (11.6-14.8)
[2020-01-12 11:26] LABS: INR 1.1 (0.9-1.3); Prothrombin Time 12.4 SECONDS (10.1-12.7)
[2020-01-12 11:34] LABS: Alanine Aminotransferase 20 IU/L (<50); Albumin 4.4 g/dL (3.5-5.0); Albumin Globulin Ratio 1.2 (1.0-2.8); Alkaline Phosphatase 218 U/L (38-126); Aspartate Aminotransferase 25 IU/L (17-59); BUN Creatinine Ratio 15.4 (6-22); Bilirubin Total 1.5 mg/dL (0.2-1.3); Blood Urea Nitrogen 36 mg/dL (9-20); Calcium 9.4 mg/dL (8.4-10.2); Carbon Dioxide 23 mmol/L (22-32); Chloride 105 mmol/L (98-107); Creatine Kinase 24 U/L (55-170); Estimated Glomerular Filt Rate 27.4 mL/min (>60); Globulin 3.7 g/dL (1.7-4.1); Glucose 95 mg/dL (80-110); HEMOLYSIS < 15 (0-50); Potassium 4.3 mmol/L (3.4-5.1); Sodium 137 mmol/L (137-145); Total Protein 8.1 g/dL (6.3-8.2)
[2020-01-12 11:46] LABS: Troponin I 0.018 ng/mL (0.01-0.034)
[2020-01-12 11:50] LABS: Procalcitonin < 0.05 ng/mL (<0.5)
[2020-01-12] MEDS: METOPROLOL TARTRATE 5 MG/5 ML INJ IV (11:52)
[2020-01-12] MEDS: METOPROLOL IR 25 MG TABLET 50 MG PO (11:52)
[2020-01-12 11:59] LABS: NT-proBNP (BNP-Adult 18+) 36800 pg/mL (<125)
[2020-01-12 12:52] LABS: COVID19 -Nasal RAPID Negative (Negative)
--- NOTE | 2020-01-12 13:13 | PC.NURSE ---
Day shift: Pt on unit from ED aat approx 1310. Pt is A&Ox3. Denies any pain or nausea. He also denies any SOB. HR tacky at 108. BP WNL. O2 96% RA. Per Dr Zhong Pt can eat and drink. Pt also placed on Tele at this time. Faint crackles at bilat bases of lungs. Oriented to room and call light. Call light in reach.
--- NOTE | 2020-01-12 13:50 | PM.HP.1 ---
History of Present Illness History of Present Illness Date Patient Seen: 01/12/20 Time Patient Seen: 13:50 Date of Onset of Symptoms: 01/05/20 Chief complaint: DIFFICULTY BREATHING Narrative: Ulisses Anderson is a 75 year old male with PMH of CKD4, CAD (4x stent to LAD,Lcx, D1, RCA 2008), ischemic cardiomyopathy with HFrEF (30-35% 11/2018), permanent afib, and alcohol abuse who presented at the behest of his coyote hunter, Dr. Nassar, for worsening shortness of breath over the past week as well as a rapid heart rate in the clinic. Patient states for the past week he has been having worsening shortness of breath. At baseline, according to his most recent cardiology note which was in September of this year, he could not walk up a flight of stairs without stopping. He states that at baseline he walks about half of his driveway, may be 50 ft, before he gets short of breath. However, over the past week, he has not been able to walk more than a few feet without getting short of breath. He denies any chest pain, orthopnea, lower extremity edema, fever, chills, productive cough although he does endorse a mild nonproductive cough at baseline. He states that he drinks at least a six-pack of beer at least 4 days a week. Patient does report some intermittent noncompliance with his medication, but does try and take them every day. He also endorses continue drinking as noted above, as well as drinking quite a bit of caffeinated soda ([place]). In the emergency room, he was in rapid AFib with a rate in the 140s but responded well to IV metoprolol. He had not taken his morning medications and was given 50 mg of extended-release metoprolol. Remainder of vital signs are unremarkable. CBC was unremarkable. Coagulation studies were unremarkable. Chemistries revealed a creatinine of 2.34 which is around the patient's baseline given his CKD 4. Troponin was within normal limits at 0.018. ProBNP was [address]34. EKG showed rapid atrial fibrillation with nonspecific T-wave abnormality in aVL only, but did not appear significantly different compared to his prior tracings. Chest x-ray shows cardiomegaly with perhaps some mild congestive appearance. Patient History Medical History Anemia (Inactive) Atrial fibrillation (Inactive) Congestive heart failure (Inactive) Ethmoid sinusitis (Inactive) History of myocardial infarction (Acute) Surgical History History of coronary artery stent placement (Acute) Family & Social History Family history unavailable: No (Patient reports no relevant past family history) Social History: household members family Safety & Behavioral: Feels Safe in Current Yes Environment Been Physically Hurt or No Threatened By a Person Tobacco & Substance use: Smoking Status Never smoker alcohol intake current alcohol intake frequency 3 or more drinks per day Substance Use Type marijuana Meds Home Medications and Allergies Home Medications Medication Instructions Recorded Confirmed Type ascorbic acid (vitamin C) 1,000 mg PO DAILY 11/25/18 01/12/20 History aspirin 81 mg PO DAILY #30 tab 11/25/18 01/12/20 Rx atorvastatin 40 mg PO DAILY #30 tab 11/25/18 01/12/20 Rx omeprazole 20 mg PO DAILY 11/25/18 01/12/20 History furosemide 20 mg PO Q OTHER DAY 11/30/18 01/12/20 History albuterol sulfate [Ventolin HFA] 2 inh INHALATION TID PRN 01/12/20 01/12/20 History cholecalciferol (vitamin D3) 2,000 unit PO DAILY 01/12/20 01/12/20 History [Vitamin D3] ferrous sulfate 325 mg PO BID 01/12/20 01/12/20 History metoprolol succinate 75 mg PO BID 01/12/20 01/12/20 History Allergies Allergy/AdvReac Type Severity Reaction Status Date / Time lisinopril [LISINOPRIL] Allergy Unknown Verified 01/12/20 11:04 Review of Systems Review of Systems Narrative: All other systems reviewed with the patient and are negative unless otherwise stated. Exam Vital Signs (past 8 hours): - 01/12/20 10:55 01/12/20 10:58 01/12/20 11:00 Temperature 98.1 F Pulse Rate 149 H 148 H 146 H Respiratory Rate 24 19 29 H Blood Pressure 124/81 124/81 126/92 H Pulse Oximetry 98 94 88 L 01/12/20 11:15 01/12/20 11:30 01/12/20 11:45 Temperature Pulse Rate 143 H 139 H 135 H Respiratory Rate 30 H 24 33 H Blood Pressure 113/87 126/88 125/91 H Pulse Oximetry 99 97 98 01/12/20 11:52 01/12/20 12:00 01/12/20 12:15 Temperature Pulse Rate 141 H 141 H 123 H Respiratory Rate 29 H 23 Blood Pressure 125/91 H 106/81 116/90 Pulse Oximetry 98 98 01/12/20 12:30 01/12/20 12:45 01/12/20 13:10 Temperature 98.3 F Pulse Rate 110 H 104 H 89 Respiratory Rate 24 28 H 17 Blood Pressure 107/82 104/78 111/74 Pulse Oximetry 99 99 100 Oxygen Delivery Method Room Air Narrative Exam Narrative: GENERAL APPEARANCE: Well developed, well nourished, in no acute distress. SKIN: Inspection of the skin reveals no rashes, ulcerations or petechiae. HEENT: Normocephalic atraumatic, extraocular muscles are intact, oropharynx is clear and mucous membranes are moist, neck is supple without adenopathy NECK: Supple and symmetric. There was no thyroid enlargement, and no tenderness, or masses were felt. CHEST: Normal AP diameter and normal contour without any kyphoscoliosis. LUNGS: Auscultation of the lungs revealed bibasilar crackles without wheezing. CARDIOVASCULAR: Tachycardic and irregularly irregular, no murmurs, rubs, or gallops. Peripheral pulses were 2+ and symmetric. ABDOMEN: Soft and nontender with normal bowel sounds. No ascites was noted. MUSCULOSKELETAL: There was no tenderness or effusions noted. Muscle strength and tone were normal. EXTREMITIES: No cyanosis, clubbing. Minimal to trace pedal edema. NEUROLOGIC: Alert and oriented x 3. Normal affect. Gait was normal. Strength is +5/5 in the Upper Extremities and Lower Extremities Bilaterally. Sensation to touch was normal. Objective ECG Impression: EKG showed rapid atrial fibrillation with nonspecific T-wave abnormality in aVL only, but did not appear significantly different compared to his prior tracings. Imaging Chest x-ray: Radiologist's impression: Cardiomegaly. Labs Result Diagrams: 01/12/20 11:10 01/12/20 11:10 Labs: Laboratory Results - last 24 hr 01/12/20 01/12/20 01/12/20 11:10 11:10 11:10 WBC 8.0 RBC 4.96 Hgb 14.8 Hct 45.8 MCV 92.3 MCH 29.8 MCHC 32.3 RDW 14.9 H Plt Count 156 Neut % (Auto) 75.5 H Lymph % (Auto) 8.0 L [place] % (Auto) 12.4 Eos % (Auto) 3.2 Baso % (Auto) 0.9 Neut # (Auto) 6000 Lymph # (Auto) 600 L [place] # (Auto) 1000 H Eos # (Auto) 300 Baso # (Auto) 100 PT 12.4 INR 1.1 Sodium 137 Potassium 4.3 Chloride 105 Carbon Dioxide 23 BUN 36 H Creatinine 2.34 H Estimated GFR 27.4 L BUN/Creatinine Ratio 15.4 Glucose 95 Calcium 9.4 Total Bilirubin 1.5 H AST 25 ALT 20 Alkaline Phosphatase 218 H Total Creatine Kinase CK-MB (CK-2) CK-MB (CK-2) Rel Index Troponin I NT-Pro-B Natriuret Pep Total Protein 8.1 Albumin 4.4 Globulin 3.7 Albumin/Globulin Ratio 1.2 Procalcitonin COVID-19 PCR 01/12/20 01/12/20 01/12/20 11:10 11:10 12:25 WBC RBC Hgb Hct MCV MCH MCHC RDW Plt Count Neut % (Auto) Lymph % (Auto) [place] % (Auto) Eos % (Auto) Baso % (Auto) Neut # (Auto) Lymph # (Auto) [place] # (Auto) Eos # (Auto) Baso # (Auto) PT INR Sodium Potassium Chloride Carbon Dioxide BUN Creatinine Estimated GFR BUN/Creatinine Ratio Glucose Calcium Total Bilirubin AST ALT Alkaline Phosphatase Total Creatine Kinase 24 L CK-MB (CK-2) TNP CK-MB (CK-2) Rel Index TNP Troponin I 0.018 NT-Pro-B Natriuret Pep 32823 H Total Protein Albumin Globulin Albumin/Globulin Ratio Procalcitonin < 0.05 COVID-19 PCR Negative Assessment & Plan Assessment & Plan narrative: Ulisses Anderson is a 75 year old male with PMH of CKD4, CAD (4x stent to LAD,Lcx, D1, RCA 2008), ischemic cardiomyopathy with HFrEF (30-35% 11/2018), permanent afib, and alcohol abuse who presented at the behest of his coyote hunter, Dr. Nassar, for worsening shortness of breath over the past week as well as a rapid heart rate in the clinic. 1. Permanent atrial fibrillation with RVR, present on admission -Initial HR in the 140s. Reports he did not take his morning medications. Received 50 mg metoprolol XL in the ER. Home dose is 75 mg BID, will increase slightly to 100 mg BID given there is room in his BP for this today. -limited TTE ordered as noted below -will diurese as noted below -encouraged alcohol cessation -dietary consultation ordered -not on AC due to melena per cardiology notes. -continue ASA 2. Acute exacerbation of chronic systolic congestive heart failure, present on admission. -Likely brought on by episode of atrial fibrillation with [place] [address]. Chest x-ray is not indicative of HF. Patient does not appear to be volume overloaded on exam but similar presentation during last admission and did improve somewhat with diuresis and patient does have worsened dyspnea / dyspnea on exertion. -Will restart at 40 mg PO lasix daily, including one dose of 40 mg IV now. Has been on 20 mg every other day per nephrology. -Continued strict I&O and daily weights. -Continued to monitor for electrolyte abnormalities and replete as needed. -Echo 11/30/18, showed reduced LVEF of 30-35%, worsened from 04/2017. Will order limited echo to reassess LVEF as last was a year ago. -initial troponin within normal limits, will repeat. 3. CKD stage IV, present on admission. Stable. -Follows with Dr. Nassar, neprhologist -Initial Cr 2.34 consistent with baseline of 2.3-2.5. -Continued to monitor renal function daily. -Continued to avoid nephrotoxic agents and optimize renal perfusion. 4. Hypertension, chronic, present on admission. Stable. -continue metoprolol as noted above 5. EtOH dependence, chronic condition, present on admission, active -Longstanding history (since youth) of EtOH dependence. Patient is unable to quantify amount of use exactly but endorses at least 6 beers 4x per week. -Denies prior history of alcohol withdraw, DT's or seizure. -Continued to monitor for signs of alcohol withdrawal, CIWA protocol initiated. -Highly encouraged alcohol cessation. 6. CAD - continue home asa, lipitor - s/p 4x stent to LAD, LCx, D1, RCA in 2008. Per prior documentation not a candidate for LHC given CKD. Code: Full, states surrogate decision maker would be his brother. Dispo: Admitted under observation as his stay is not expected to exceed 2 midnights. Anticipate discharge home tomorrow if his rate is controlled did he is symptomatically improved. DVT:Lovenox daily Covid status: negative.
[2020-01-12] MEDS: FUROSEMIDE 40 MG/4 ML VIAL IV (16:08)
[2020-01-12 17:48] LABS: Troponin I 0.017 ng/mL (0.01-0.034)
--- NOTE | 2020-01-12 20:33 | DI.ECHO.S_ITS ---
[facility]---------+ [facility] +---------+ : : [address] [place] : : : : [phone] : : : : Phone: [phone]+ Echocardiogram Report + + :Name: LUCRETIA JOHN Study Date: 01/13/2020 Height: 69 in : :[facility] Weight: 161 lb : : Gender: Male BSA: 1.9 m2 : :: 1945 Age: 75 yrs BP: 109/79 mmHg: :Reason For Study: Atrial fibrillation, HEART FAILURE REDUCED : :EJECTION FRACTION : :Ordering Physician: Alfredo : :Hospitalist Performed By: Dawn Chang : :Referring: JOCELYN CARLSON : + + Interpretation Summary The left ventricle is moderately dilated. The ejection fraction is estimated to be 15-20%. There is severe global hypokinesis of the left ventricle. Right ventricular systolic function is moderately reduced. There is severe biatrial enlargement. There is severe mitral regurgitation. There is moderate tricuspid regurgitation. The right ventricular systolic pressure is estimated to be at least 44 mmHg based on an estimated right atrial pressure of 15 mm Hg. Procedure: A two-dimensional transthoracic echocardiogram with color flow and Doppler was performed. The study quality was technically adequate. Comparison is made with the echocardiogram of 01/10/2019. A contrast injection of Definity was performed to improve assessment for apical thrombus. Contrast was injected into an intravenous site in the right arm. The patient was in atrial fibrillation with heart rates between 72-94 bpm during the exam. Left Ventricle: The left ventricle is moderately dilated. There is normal left ventricular wall thickness. The ejection fraction is estimated to be 15- 20%. There is severe global hypokinesis of the left ventricle. Diastolic function could not be accurately assessed due to atrial fibrillation. Right Ventricle: The right ventricle is mildly dilated. Right ventricular systolic function is moderately reduced. Atria: The left atrium is severely dilated. There is severe biatrial enlargement. The right atrium is severely dilated. There is no Doppler evidence for an interatrial shunt. Mitral Valve: There is mild mitral annular calcification. The mitral valve is normal in structure but abnormal in function. There is severe mitral regurgitation. Aortic Valve: The aortic valve is trileaflet. The aortic valve is mildly calcified. There is no aortic valve stenosis. No aortic regurgitation is present. Tricuspid Valve: The tricuspid valve leaflets are thin and pliable. The tricuspid annulus is dilated. There is moderate tricuspid regurgitation. The right ventricular systolic pressure is estimated to be at least 44 mmHg based on an estimated right atrial pressure of 15 mm Hg. Pulmonic Valve: The pulmonic valve leaflets are thin and pliable; valve motion is normal. There is trace pulmonic regurgitation. Great Vessels: The aortic root is normal size. The ascending aorta is mildly enlarged. The IVC is dilated (diameter is greater than 2.1 cm) and it collapses less than 50% with a sniff. This suggests a high right atrial pressure of 15 mm Hg. Pericardium/ Pleura There is no pericardial effusion. There is no pleural effusion. MMode/2D Measurements & Calculations LVIDd: 6.5 cm LVOT diam: 2.2 cm LVIDs: 6.2 cm Ao root diam: 3.2 cm FS: 5.6 % asc Aorta Diam: 3.5 cm EPSS: 1.8 cm Ao Arch Diam (Prox Trans): 3.5 cm IVSd: 0.59 cm LVPWd: 0.76 cm LV fitzpatrick. diameter/BSA (cm/m^2): 3.5 LV sys. diameter/BSA (cm/m^2): 3.3 LA A2 area: 32.0 cm2 RA long axis: 6.3 cm LA A4 area: 29.6 cm2 RA area: 27.5 cm2 LA length (vol): 6.8 cm RA vol: 102.2 ml LA vol: 117.3 ml RA : 54.3 ml/m2 LA vol index: 62.3 ml/m2 IVC diam: 2.2 cm RVD1 (basal): 4.4 cm TAPSE: 1.3 cm Doppler Measurements & Calculations Ao V2 max: 99.8 cm/sec LVOT Max Agustin: 60.2 cm/sec Ao V2 mean: 66.8 cm/sec LV V1 max P.5 mmHg Ao max P.0 mmHg LV V1 VTI: 9.4 cm Ao mean P.1 mmHg MATI(I,D): 2.1 cm2 Ao V2 VTI: 16.1 cm MATI(V,D): 2.2 cm2 sev ratio: 0.58 MATI indexed to BSA (cm^2/m^2): 1.1 MV E max agustin: 93.6 cm/sec TR max agustin: 261.2 cm/sec MV A max agustin: 0.72 cm/sec TR max P.0 mmHg MV E/A: 130.6 PA V2 max: 30.4 cm/sec Med Peak E' Agustin: 4.9 cm/sec PA V2 mean: 19.2 cm/sec E/E' med: 19.1 PA mean P.18 mmHg Lat Peak E' Agustin: 9.4 cm/sec PA pr(Accel): 51.6 mmHg E/E' lat: 10.0 E/e' average: 14.5 MV dec time: 0.17 sec MR ERO: 0.37 cm2 MR PISA: 4.2 cm2 SV(LVOT): 34.6 ml MR flow rate: 154.3 cm3/sec MR PISA radius: 0.82 cm Reading Physician:01:29 PM
[2020-01-12] MEDS: METOPROLOL ER 50 MG TABLET 100 MG PO (21:24)
[2020-01-12] MEDS: FERROUS SULFATE 325 MG TABLET PO (21:24)
[2020-01-13] VITALS (8 sets, daily range): BP systolic 108–125; BP diastolic 69–85; PULSE 65–111; RESP 17–18; TEMP 36.3–36.6; O2SAT 96–98
--- NOTE | 2020-01-13 01:36 | PC.NURSE ---
Patient seen and assessed at 0022. Is alert and oriented. Breath sounds CTA with RA sat of 96%. HR irregular w/hx of afib and telemetry reading of afib CVR. Denies nausea. BT present and abdomen is soft. Denies dysuria, frequency or urgency with urination. Moves self in bed and up to bathroom with SBA. Denies pain. CIWA score is 0. Fall risk score is moderate and bed alarm is activated
[2020-01-13 05:37] LABS: Add Manual Diff / Slide Review NO; Basophils Absolute Auto 100 /uL (0-100); Basophils Percent Auto 0.9 % (0-2); Eosinophils Absolute Auto 400 /uL (0-450); Eosinophils Percent Auto 5.2 % (2-4); Hematocrit 40.3 % (41-53); Hemoglobin 13.3 g/dL (13.5-17.5); Lymphocytes Absolute Auto 800 /uL (1100-4500); Lymphocytes Percent Auto 11.8 % (25-40); Mean Corpuscular HGB Conc 33.1 % (30-36); Mean Corpuscular Hemoglobin 29.9 PG (26-34); Mean Corpuscular Volume 90.4 fL (80-100); Monocytes Absolute Auto 1100 /uL (0-900); Neutrophils Absolute Auto 4700 /uL (1500-7000); Neutrophils Percent Auto 67.1 % (50-75); Platelet Count 141 X10^3/uL (150-400); Red Blood Cell Count 4.46 X10^6/uL (4.5-5.9)
[2020-01-13 05:43] LABS: Alanine Aminotransferase 16 IU/L (<50); Albumin 3.6 g/dL (3.5-5.0); Albumin Globulin Ratio 1.1 (1.0-2.8); Alkaline Phosphatase 156 U/L (38-126); Aspartate Aminotransferase 24 IU/L (17-59); BUN Creatinine Ratio 18.7 (6-22); Bilirubin Total 1.4 mg/dL (0.2-1.3); Bilirubin Unconjugated 1.1 mg/dL (0.0-1.1); Blood Urea Nitrogen 44 mg/dL (9-20); Calcium 9.2 mg/dL (8.4-10.2); Carbon Dioxide 27 mmol/L (22-32); Chloride 104 mmol/L (98-107); Cholesterol 105 mg/dL (140-199); Estimated Glomerular Filt Rate 27.3 mL/min (>60); Globulin 3.3 g/dL (1.7-4.1); Glucose 93 mg/dL (80-110); HDL Cholesterol 32 mg/dL (40-60); HEMOLYSIS < 15 (0-50); Hemoglobin A1C% w Est Avg Glu 5.8 % (4.0-6.0); LDL Cholesterol Calculated 62 mg/dL (<100); Magnesium 1.8 mg/dL (1.6-2.3); Potassium 4.5 mmol/L (3.4-5.1); Sodium 136 mmol/L (137-145); Total Protein 6.9 g/dL (6.3-8.2); Triglycerides 55 mg/dL (35-150)
[2020-01-13 06:38] LABS: TSH w/ Reflex to FT4 1.31 uIU/mL (0.47-4.68)
[2020-01-13] MEDS: PANTOPRAZOLE 20 MG TABLET PO (09:20)
[2020-01-13] MEDS: FUROSEMIDE 40 MG TABLET PO (09:20)
[2020-01-13] MEDS: METOPROLOL ER 50 MG TABLET 100 MG PO (09:20)
[2020-01-13] MEDS: ASCORBIC ACID 500 MG TABLET 1000 MG PO (09:20)
[2020-01-13] MEDS: ASPIRIN EC 81 MG TABLET PO (09:20)
[2020-01-13] MEDS: FERROUS SULFATE 325 MG TABLET PO (09:20)
[2020-01-13] MEDS: ATORVASTATIN 20 MG TABLET 40 MG PO (09:20)
[2020-01-13] MEDS: ENOXAPARIN 30 MG/0.3 ML SYRINGE SUBCUT (09:21)
[2020-01-13] MEDS: SODIUM CHLORIDE 0.9% FLUSH 10 ML IV (09:21)
[2020-01-13] MEDS: CHOLECALCIFEROL (VITAMIN D3) 1,000 UNIT TABLET 2000 UNIT PO (09:21)
[2020-01-13] MEDS: ACETAMINOPHEN 325 MG TABLET 650 MG PO (09:22)
--- NOTE | 2020-01-13 12:48 | DIET.PN ---
Dietary Progress Note Assessment: 75y M admitted for progressive SOB c PMH of CKD4, CAD (4x stent to LAD,Lcx, D1, RCA 2008), ischemic cardiomyopathy with HFrEF (30-35% 11/2018), permanent afib, and alcohol abuse referred to nutrition for same. 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 Pt reports talking to [place] friends by phone daily and generally does a trip yearly to visit but wasn't able to because of global pandemic this year. Pt lives c his sister in a home though they have separate routines and food. Usual Day: wakes 5am lunch 11am: goes to pub for fish and chips 3-4d/w and sits there visiting c people through the afternoon having 6 beers. Pt does not drink etoh at home. On days not going to pub, pt sits and watches tv eating snacks. Pt likes canned tuna and salmon, peanut butter, mashed and hashed potatoes, banana, orange, apple, apple sauce. Pt reports needing to get his teeth pulled as several are loose and this affects his eating, usually having soft foods, and chewing with one side of molars. Pt's dentist has postponed procedure r/t pandemic. Pt carries on dietary habits from when he was fishing- beer in one hand, cigarette in other and salting and peppering food to mask the flavor. Pt not followed by RD for CKD4. HT: 175.2cm WT: 72kg UBW: 79.5kg (pt reports having lost weight recently, he thinks r/t etoh use) BMI: 23.4 Labs: K+ 4.5, eGFR 27.3 L, Cr 2.35 H, NTProBNP admission 87773 H MNA: 12 [place]ane: 21 Nutrition Diagnosis: excessive mineral intake (sodium) r/t undesirable food choices aeb pt reports salting at the table before tasting meals, intake of pub fish and chips 3-4x/w, pt admitted c NTProBNP 82606 H. Interventions: 1. Discussed role of high sodium diet on cardiac, pulmonary, and renal systems. Encouraged pt to decrease sodium intake to preserve function of these organ systems. 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 Encouraged pt to continue using pepper at the table, but to not salt at table any more. 2. Discussed brief renal nutrition c pt, encouraged consumption of peanut butter for better renal protein clearance, encouraged reduced sodium, alerted pt to high potassium content of bananas and potatoes, and encouraged pt to aim for no more than one serving of each per day. 3. Encouraged pt to moderate etoh use by switching between a pint of beer and a pint of water at the pub. Pt finds this environment a social outlet, alternating between beverages will reduce intake to 3 equivalents and improve hydration status. Diet Order: HH, easy chew EER: 2g sodium restriction
--- NOTE | 2020-01-13 13:15 | CM.DANOTE ---
DCP/Assessment: Reviewed chart. Patient is a 75yr old male admitted to [facility] with SOB. PCP is Venus Meza. Primary payor is: 1)Medicare 2)Medicaid. Met with patient this AM explained CM/SW role. Patient reports that he resides with his sister/Melissa in [facility]. Patient hopes to d/c home today. Spoke with provider and she reports that patient will be discharged if ECHO negative. Patient reports that he uses no DME at baseline. Patient drives regularly. Patient denies any d/c planning needs. P: Home when medically stable. ZURDO Perla Discharge Planning/Care Management CM Discharge Assessment Start: 01/13/20 11:56 Freq: Status: Active Protocol: Document 01/13/20 13:11 KJS (Rec: 01/13/20 13:14 KJS [id number]) Discharge Planning Assessment Assigned Case Management Rn ZURDO Perla Contact Information Kamlesh Swanson (brother) Advance Directives? No History Provided By Patient,Medical Record Prior Living Arrangements House Household Members family Type of transporation used prior to Drives own vehicle admit Independent with ADL's Yes Is patient alert and oriented? Yes Caregiver for Another No Barriers to Discharge No Discharge Plan Home Transportation Arrangement Patient reports his family can provide transport. Whiteboard Updated in Patient Room with Yes name and ext. # of Case Management Rn
--- NOTE | 2020-01-13 15:21 | PM.DS.1 ---
History of Present Illness History of Present Illness Date Patient Seen: 01/12/20 Chief complaint: DIFFICULTY BREATHING Narrative: Written by Dr. 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 Nassar, for worsening shortness of breath over the past week as well as a rapid heart rate in the clinic. Patient states for the past week he has been having worsening shortness of breath. At baseline, according to his most recent cardiology note which was in September of this year, he could not walk up a flight of stairs without stopping. He states that at baseline he walks about half of his driveway, may be 50 ft, before he gets short of breath. However, over the past week, he has not been able to walk more than a few feet without getting short of breath. He denies any chest pain, orthopnea, lower extremity edema, fever, chills, productive cough although he does endorse a mild nonproductive cough at baseline. He states that he drinks at least a six-pack of beer at least 4 days a week. Patient does report some intermittent noncompliance with his medication, but does try and take them every day. He also endorses continue drinking as noted above, as well as drinking quite a bit of caffeinated soda ([employer]). In the emergency room, he was in rapid AFib with a rate in the 140s but responded well to IV metoprolol. He had not taken his morning medications and was given 50 mg of extended-release metoprolol. Remainder of vital signs are unremarkable. CBC was unremarkable. Coagulation studies were unremarkable. Chemistries revealed a creatinine of 2.34 which is around the patient's baseline given his CKD 4. Troponin was within normal limits at 0.018. ProBNP was 24994. EKG showed rapid atrial fibrillation with nonspecific T-wave abnormality in aVL only, but did not appear significantly different compared to his prior tracings. Chest x-ray shows cardiomegaly with perhaps some mild congestive appearance. Discharge Providers Provider Date of admission: 01/12/20 12:33 Discharge Date: 01/13/20 Primary care physician: Venus Gallo MD Consults: 01/12/20 13:48 Consult to Dietitian, Adult Routine Comment: Reason For Exam: afib, ? heart failure, EtOH Discharge provider: Deanne Ramos DO Summary Hospital Course Discharge Diagnosis: 1. Permanent atrial fibrillation with acute RVR, present on admission. RVR resolved. 2. Decompensated biventricular systolic congestive heart failure, present on admission. Improved. 3. Chronic kidney disease stage IV, present on admission. Stable. 4. CAD, chronic, present on admission. Stable. 5. Alcohol dependence, chronic, present on admission. Stable. 6. Anemia of chronic disease, present on admission. Stable. 7. Hypertension, chronic, present on admission. Stable. 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 Nassar, for worsening shortness of breath over the past week and rapid heart rate in the clinic. 1. Permanent atrial fibrillation with acute RVR, present on admission. RVR resolved. -Patient presented with atrial fibrillation with RVR and HR in the 140s. He reported he did not take his morning medications. -Continued to diurese as below. -Continued to monitor on telemetry. No longer in rapid ventricular rate and currently rate controlled in the 70-80s. Of note, patient did have sinus bradycardia into the high 40s while sleeping. -Discussed alcohol cessation in detail and encouraged indefinite abstinence or to cut back significantly from alcohol. -Patient is currently not anticoagulated due to previous significant life-threatening GI bleed. Continued aspirin 81 mg daily. -Received metoprolol succinate 50 mg x1 in the ED. Continued home metoprolol succinate increased from 75 mg to 100 mg twice daily. Heart rate well controlled with average heart rate 70s to 80s. -Discussed case with the patient's operation specialist, Dr. Danielle, who agreed with overall medical management including increasing metoprolol succinate to 100 mg twice daily for rate control and increasing furosemide to 40 mg daily instead of 20 mg every other day to help with hypervolemia due to CKD and CHF. Due to significant renal insufficiency patient is not a candidate for left heart catheterization, AICD, or heart transplant and medications for treatment of heart failure are limited as below. 2. Decompensated biventricular systolic congestive heart failure, present on admission. Improved. -Likely brought on by episode of atrial fibrillation with RVR. -Pro-BNP of 36,800. Chest x-ray demonstrated mild cardiomegaly without evidence of heart failure exacerbation or pulmonary edema. Patient does not appear to be volume overloaded on exam but similar presentation during last hospital admission. Patient endorsed progressive worsening shortness of breath and dyspnea on exertion which has slightly improved with diuresis. -Continued home furosemide increased from 20 mg every other day to 40 mg daily. Recommended continued close outpatient follow-up with Cardiology and nephrology. -Echocardiogram demonstrated LV moderately dilated with EF 15-20%, severe global hypokinesis of the left ventricle, RV systolic function is moderately reduced, severe biatrial enlargement, severe mitral regurgitation, moderate tricuspid regurgitation, RVSP is estimated to be at least 44 mmHg based on an estimated right atrial pressure of 15 mm Hg. -Continued strict I&O and daily weights. Net -1.2 L. -Continued to monitor for electrolyte abnormalities and replete as needed. -Discussed case with the patient's operation specialist, Dr. Danielle, who agreed with overall medical management including increasing metoprolol succinate to 100 mg twice daily for rate control and increasing furosemide to 40 mg daily instead of 20 mg every other day to help with hypervolemia due to CKD and CHF. Due to significant renal insufficiency patient is not a candidate for left heart catheterization, AICD, or heart transplant and medications for treatment of heart failure are limited. Highly recommended consideration of hospice in the near future as he has end-stage heart failure and advanced CKD and this was discussed with the patient in detail and will defer to his PCP or operation specialist or floatlight powder mixer. 3. Chronic kidney disease stage IV, present on admission. Stable. -Patient is followed by nephrology Dr. Nassar. -Initial creatinine is 2.34 which is at his baseline of 2.3-2.5. -Continued to avoid nephrotoxic agents and optimize renal perfusion. -Continued to monitor renal function daily. 4. CAD, chronic, present on admission. Stable. -Patient is status post stenting x4 to LAD, LCx, D1, RCA in 2008. Per prior documentation not a candidate for left heart catheterization given CKD. -Continued aspirin 81 mg daily, atorvastatin 40 mg daily, and metoprolol succinate increased from 75 mg to 100 mg twice daily. 5. Alcohol dependence, chronic, present on admission. Stable. -Longstanding history (since youth) of alcohol dependence. Patient is unable to quantify amount of use exactly but endorses at least 6 beers 4x per week. Denies prior history of alcohol withdraw, DT's or seizure. -Continued to monitor for signs of alcohol withdrawal in which he did not exhibit during hospitalization. -Discussed alcohol cessation in detail and encouraged indefinite abstinence or to cut back significantly from alcohol. 6. Anemia of chronic disease, present on admission. Stable. -Likely multifactorial secondary to chronic kidney disease and bone marrow suppression from alcohol dependence. -Initial hemoglobin 14.8 and trended down to 13.3. No overt signs of bleeding. -Continued to monitor H&H daily. 7. Hypertension, chronic, present on admission. Stable. -Continued home metoprolol succinate increased from 75 mg to 100 mg twice daily. Exam Vital Signs (past 8 hours): - 01/13/20 08:23 01/13/20 09:38 01/13/20 09:52 Temperature 97.9 F Pulse Rate 111 H 86 Respiratory Rate 18 Blood Pressure 125/85 Pulse Oximetry 98 97 01/13/20 11:38 01/13/20 12:18 Temperature 97.4 F L Pulse Rate 74 Respiratory Rate 17 Blood Pressure 108/74 Pulse Oximetry 98 97 Oxygen Delivery Method Room Air Oxygen Flow Rate 0 Narrative Exam Narrative: General: Elderly gentleman sitting in bed and in no acute distress, well-developed, well-nourished, appropriately interactive. HEENT: Normocephalic, atraumatic. External ears without defect. Pupils equal, round, and reactive to light. Anicteric sclerae, moist conjunctivae, and no lid lag. Oropharynx free of erythema and cobble stoning with moist mucosa. Neck: Supple with full range of motion. No jugular venous distension. No lymphadenopathy or thyromegaly. Cardiovascular: Irregularly irregular without murmurs, rubs, or gallops appreciated. Pulmonary: Clear to auscultation bilaterally without crackles, wheezes, or rhonchi. Normal respiratory effort with no use of accessory muscles. Abdomen: Soft, bowel sounds present, nontender, nondistended. No hepatosplenomegaly or masses appreciated. Extremities: No clubbing, cyanosis, or edema. Skin: Normal temperature, turgor, and texture; no rash, ulcers, or subcutaneous nodules appreciated. Neurological: Cranial nerves grossly intact. Psychiatric: Normal mood and affect. Alert and oriented to person, place, and time. Poor insight. Objective Labs Result Diagrams: 01/13/20 05:05 01/13/20 05:05 Labs: Laboratory Results - last 24 hr 01/12/20 01/13/20 01/13/20 17:09 05:05 05:05 WBC 7.0 RBC 4.46 L Hgb 13.3 L Hct 40.3 L MCV 90.4 MCH 29.9 MCHC 33.1 RDW 15.0 H Plt Count 141 L Neut % (Auto) 67.1 Lymph % (Auto) 11.8 L [place] % (Auto) 15.0 H Eos % (Auto) 5.2 H Baso % (Auto) 0.9 Neut # (Auto) 4700 Lymph # (Auto) 800 L [place] # (Auto) 1100 H Eos # (Auto) 400 Baso # (Auto) 100 Sodium 136 L Potassium 4.5 Chloride 104 Carbon Dioxide 27 BUN 44 H Creatinine 2.35 H Estimated GFR 27.3 L BUN/Creatinine Ratio 18.7 Glucose 93 Hemoglobin A1c Calcium 9.2 Magnesium 1.8 Total Bilirubin 1.4 H Conjugated Bilirubin 0.0 Unconjugated Bilirubin 1.1 AST 24 ALT 16 Alkaline Phosphatase 156 H Troponin I 0.017 Total Protein 6.9 Albumin 3.6 Globulin 3.3 Albumin/Globulin Ratio 1.1 Triglycerides 55 Cholesterol 105 L LDL Cholesterol, Calc 62 HDL Cholesterol 32 L TSH 01/13/20 01/13/20 05:05 05:05 WBC RBC Hgb Hct MCV MCH MCHC RDW Plt Count Neut % (Auto) Lymph % (Auto) [place] % (Auto) Eos % (Auto) Baso % (Auto) Neut # (Auto) Lymph # (Auto) [place] # (Auto) Eos # (Auto) Baso # (Auto) Sodium Potassium Chloride Carbon Dioxide BUN Creatinine Estimated GFR BUN/Creatinine Ratio Glucose Hemoglobin A1c 5.8 Calcium Magnesium Total Bilirubin Conjugated Bilirubin Unconjugated Bilirubin AST ALT Alkaline Phosphatase Troponin I Total Protein Albumin Globulin Albumin/Globulin Ratio Triglycerides Cholesterol LDL Cholesterol, Calc HDL Cholesterol TSH 1.31 Discharge Plan Discharge Plan Patient Disposition: Home Nursing Discharge Comment: You are being discharged home. You had atrial fibrillation with fast heart rate. Your metoprolol succinate dose has been increased from 75 mg twice daily to 100 mg twice daily. Your heart failure has worsened with ejection fraction 15-20%. Your furosemide has been increased to 40 mg daily. Due to your severe kidney disease you are not a candidate for a heart catheterization or heart transplant and medications used to treat your heart failure are very limited. Please abstain from alcohol indefinitely. Please follow-up with your operation specialist, Dr. Danielle, at your scheduled appointment regarding your hospitalization. Please follow-up with your primary care physician, Dr. Gallo, in the next 1 week regarding hospitalization. Discharge orders & Medications Prescriptions: New metoprolol succinate 50 mg tablet extended release 24 hr 100 mg PO BID Qty: 120 RF: 0 Continued ascorbic acid (vitamin C) 500 mg Tablet 1,000 mg PO DAILY RF: 0 omeprazole 20 mg Capsule,Delayed Release(Dr/Ec) 20 mg PO DAILY RF: 0 atorvastatin 40 mg tablet 40 mg PO DAILY Qty: 30 RF: 0 aspirin 81 mg tablet,delayed release (DR/EC) 81 mg PO DAILY Qty: 30 RF: 0 ferrous sulfate 325 mg (65 mg iron) Tablet 325 mg PO BID RF: 0 cholecalciferol (vitamin D3) [Vitamin D3] 50 mcg (2,000 unit) capsule 2,000 unit PO DAILY RF: 0 albuterol sulfate [Ventolin HFA] 90 mcg/actuation HFA aerosol inhaler 2 inh INHALATION TID PRN (Reason: Wheezing) RF: 0 furosemide 40 mg Tablet 40 mg PO DAILY Qty: 30 RF: 0 Discontinued furosemide 40 mg Tablet 20 mg PO Q OTHER DAY RF: 0 Follow up/Referrals: Venus Gallo MD [Primary Care Provider] - 1 Week aMry Danielle MD [Physician] - 2 Weeks Diet/Activity/Treatments Diet: Low-fat, Low-sodium and Low-cholesterol Diet comment: Low-sodium and less than 2 L of fluid a day Activity: Activity as tolerated Visit Report/Discharge Packet Instructions: DI for Heart Failure, DI for Atrial Fibrillation, Fluid Restricted Diet, Low-Sodium Diet Visit Report Forms: Patient Portal/API, Stroke Signs & Symptoms Discharge Data Primary Care Provider: Venus Gallo Attending Provider: Winston Zhong Admit Date/Time: 01/12/20 12:33 Discharges patient from system. Discharge Date/Time: 01/13/20 16:00 Quality VTE Deep Vein Thrombosis/Pulmonary Embolism Present on Admission: No
--- NOTE | 2020-01-13 16:11 | PC.NURSE ---
Pt given discharge instructions w/understanding HL removed intact. Tele D/C'd Escorted via W/C by staff tp waoting vehicle D/C in stable condition.
== END 2020-01-13 16:00 | disposition home or self-care (01) ==
LOC: ED 12:34 → AC 12:34
PROVIDERS: Admitting Provider Internal Medicine; Emergency Provider Emergency Medicine; PCP Family Medicine; Referring Provider Emergency Medicine; Visit Provider Internal Medicine
DX: I48.21 Permanent atrial fibrillation (principal); R06.02 Shortness of breath; K21.9 Gastro-esophageal reflux disease without esophagitis; I50.23 Acute on chronic systolic (congestive) heart failure; I12.9 Hypertensive chronic kidney disease with stage 1 through stage 4 chronic kidney disease, or unspecified chronic kidney disease; N18.4 Chronic kidney disease, stage 4 (severe); I25.10 Atherosclerotic heart disease of native coronary artery without angina pectoris; F10.20 Alcohol dependence, uncomplicated; D64.9 Anemia, unspecified; Z11.59 Encounter for screening for other viral diseases
CPT/HCPCS: 36415; 71045; 80048; 80053; 80061; 80076; 82550; 82962; 83036; 83735; 83880; 84145; 84443; 84484; 85025; 85610; 87635; 93005; 93306; 96372; 96374; 96375; 99284; G0378; J1650; J1940; Q9957

== ENCOUNTER → 2020-02-05 11:32 | Outpatient (CLI) | payer MEDICARE, MEDICAID, OTHER, SELFPAY ==
[2020-01-12 13:32] VITALS: BMI 23.8
[2020-02-05 12:51] LABS: Hematocrit 46.2 % (41-53); Hemoglobin 15.1 g/dL (13.5-17.5)
[2020-02-05 13:19] LABS: BUN Creatinine Ratio 21.2 (6-22); Blood Urea Nitrogen 58 mg/dL (9-20); Calcium 9.3 mg/dL (8.4-10.2); Carbon Dioxide 27 mmol/L (22-32); Chloride 103 mmol/L (98-107); Estimated Glomerular Filt Rate 22.8 mL/min (>60); Glucose 98 mg/dL (80-110); HEMOLYSIS < 15 (0-50); Potassium 4.9 mmol/L (3.4-5.1); Sodium 137 mmol/L (137-145)
[2020-02-05 13:20] LABS: HEMOLYSIS < 15 (0-50); Iron 175 ug/dL (49-181)
[2020-02-05 13:31] LABS: Percent Iron Saturation 59 % (20-50); Total Iron Binding Capacity 295 ug/dL (261-462); Transferrin 220 mg/dL (206-381)
[2020-02-05 13:53] LABS: Ferritin 278 ng/mL (18-464)
[2020-02-06 10:04] LABS: Parathyroid Hormone Int 100 pg/mL (15-65)
== END ==
PROVIDERS: PCP Family Medicine; Referring Provider Student in an Organized Health Care Education/Training Program; Visit Provider Student in an Organized Health Care Education/Training Program
DX: D50.0 Iron deficiency anemia secondary to blood loss (chronic) (principal); N05.9 Unspecified nephritic syndrome with unspecified morphologic changes; D64.9 Anemia, unspecified; N25.81 Secondary hyperparathyroidism of renal origin
CPT/HCPCS: 36415; 80048; 82728; 83540; 83550; 83970; 85014; 85018

== ENCOUNTER → 2020-03-02 11:07 | Outpatient (CLI) | payer MEDICARE, MEDICAID, OTHER, SELFPAY ==
[2020-01-12 13:32] VITALS: BMI 23.8
--- NOTE | 2020-03-02 | DI.RAD.S_ITS ---
PROCEDURE: XR CHEST 2V INDICATIONS: COUGH TECHNIQUE: 2 views of the chest were acquired. COMPARISON: [facility], CR, XR CHEST 1V, 01/12/2020, 11:30. [facility], CR, XR CHEST 1V, 06/20/2019, 15:10. FINDINGS: Surgical changes and devices: None. Lungs and pleura: Lungs are abnormal with relatively large lung volumes and flattening of the hemidiaphragms, consistent with COPD. No pleural effusions or pneumothorax. Mild interstitial prominence, possible prior smoking history. Mediastinum: Mediastinal contours are normal. Heart size is normal. Bones and chest wall: No suspicious bony abnormalities. Soft tissues appear unremarkable. IMPRESSION: Suspect prior smoking history and COPD. No pneumonia found. Dictated by: Vamsi Baer M.D. on 03/02/2020 at 11:47 Approved by: Vamsi Baer M.D. on 03/02/2020 at 11:48
== END ==
PROVIDERS: PCP Family Medicine; Referring Provider Family Medicine; Visit Provider Family Medicine
DX: R05 Cough (principal)
CPT/HCPCS: 71046

== ENCOUNTER → 2020-07-13 11:17 | Outpatient (CLI) | payer MEDICARE, MEDICAID, OTHER, SELFPAY ==
[2020-01-12 13:32] VITALS: BMI 23.8
[2020-07-13 12:28] LABS: Hemoglobin 12.3 g/dL (13.5-17.5)
[2020-07-13 13:05] LABS: BUN Creatinine Ratio 13.6 (6-22); Blood Urea Nitrogen 40 mg/dL (9-20); Calcium 9.8 mg/dL (8.4-10.2); Carbon Dioxide 23 mmol/L (22-32); Chloride 108 mmol/L (98-107); Glucose 138 mg/dL (80-110); HEMOLYSIS < 15 (0-50); Potassium 4.8 mmol/L (3.4-5.1); Sodium 141 mmol/L (137-145)
[2020-07-14 10:21] LABS: Parathyroid Hormone Int 96 pg/mL (15-65)
== END ==
PROVIDERS: PCP Family Medicine; Referring Provider Student in an Organized Health Care Education/Training Program; Visit Provider Student in an Organized Health Care Education/Training Program
DX: N05.9 Unspecified nephritic syndrome with unspecified morphologic changes (principal); D64.9 Anemia, unspecified; N25.81 Secondary hyperparathyroidism of renal origin; R80.9 Proteinuria, unspecified
CPT/HCPCS: 36415; 80048; 83970; 85014; 85018

== ENCOUNTER → 2021-02-08 08:49 | Outpatient (CLI) | payer MEDICARE, MEDICAID, OTHER, SELFPAY ==
[2020-01-12 13:32] VITALS: BMI 23.8
[2021-02-08 09:25] LABS: Hematocrit 33.6 % (41-53)
[2021-02-08 09:45] LABS: BUN Creatinine Ratio 8.7 (6-22); Blood Urea Nitrogen 20 mg/dL (9-20); Calcium 9.1 mg/dL (8.4-10.2); Carbon Dioxide 23 mmol/L (22-32); Chloride 104 mmol/L (98-107); Estimated Glomerular Filt Rate 27.9 mL/min (>60); Glucose 97 mg/dL (80-110); HEMOLYSIS < 15 (0-50); Potassium 4.8 mmol/L (3.4-5.1); Sodium 135 mmol/L (137-145)
[2021-02-08 09:57] LABS: Creatinine Urine Random 158.9 mg/dL
[2021-02-08 10:22] LABS: Protein (Total) Urine Random 86 mg/dL (0-12); Protein Creatinine Ratio Urine 0.54 GRAM/24H
[2021-02-09 08:10] LABS: Parathyroid Hormone Int 75 pg/mL (15-65)
== END ==
PROVIDERS: PCP Family Medicine; Referring Provider Student in an Organized Health Care Education/Training Program; Visit Provider Student in an Organized Health Care Education/Training Program
DX: N05.9 Unspecified nephritic syndrome with unspecified morphologic changes (principal); D64.9 Anemia, unspecified; N25.81 Secondary hyperparathyroidism of renal origin; R80.9 Proteinuria, unspecified
CPT/HCPCS: 36415; 80048; 82570; 83970; 84156; 85014; 85018

== ENCOUNTER → 2021-06-16 10:56 | Outpatient (CLI) | payer MEDICARE, MEDICAID, OTHER, SELFPAY ==
[2020-01-12 13:32] VITALS: BMI 23.8
[2021-06-16 11:32] LABS: Hematocrit 35.3 % (41-53)
[2021-06-16 11:40] LABS: BUN Creatinine Ratio 10.1 (6-22); Blood Urea Nitrogen 30 mg/dL (9-20); Calcium 8.9 mg/dL (8.4-10.2); Carbon Dioxide 22 mmol/L (22-32); Chloride 105 mmol/L (98-107); Estimated Glomerular Filt Rate 20.7 mL/min (>60); Glucose 108 mg/dL (80-110); HEMOLYSIS < 15 (0-50); Potassium 4.9 mmol/L (3.4-5.1); Sodium 134 mmol/L (137-145)
[2021-06-16 17:02] LABS: Creatinine Urine Random 147.2 mg/dL; Protein (Total) Urine Random 41 mg/dL (0-12); Protein Creatinine Ratio Urine 0.27 GRAM/24H
[2021-06-17 08:12] LABS: Parathyroid Hormone Int 45 pg/mL (15-65)
== END ==
PROVIDERS: PCP Family Medicine; Referring Provider Student in an Organized Health Care Education/Training Program; Visit Provider Student in an Organized Health Care Education/Training Program
DX: N05.9 Unspecified nephritic syndrome with unspecified morphologic changes (principal); D64.9 Anemia, unspecified; N25.81 Secondary hyperparathyroidism of renal origin; R80.9 Proteinuria, unspecified
CPT/HCPCS: 36415; 80048; 82570; 83970; 84156; 85014; 85018

== ENCOUNTER → 2021-07-25 10:21 | Outpatient (CLI) | payer MEDICARE, MEDICAID, OTHER, SELFPAY ==
[2020-01-12 13:32] VITALS: BMI 23.8
[2021-07-25 12:14] LABS: BUN Creatinine Ratio 7.9 (6-22); Blood Urea Nitrogen 22 mg/dL (9-20); Carbon Dioxide 19 mmol/L (22-32); Chloride 108 mmol/L (98-107); Estimated Glomerular Filt Rate 23 mL/min (>60); Glucose 102 mg/dL (80-110); HEMOLYSIS < 15 (0-50); Potassium 4.6 mmol/L (3.4-5.1); Sodium 137 mmol/L (137-145)
[2021-07-25 12:19] LABS: NT-proBNP (BNP-Adult 18+) 1360 pg/mL (<450)
== END ==
PROVIDERS: PCP Family Medicine; Referring Provider Student in an Organized Health Care Education/Training Program; Visit Provider Student in an Organized Health Care Education/Training Program
DX: I50.32 Chronic diastolic (congestive) heart failure (principal); N05.9 Unspecified nephritic syndrome with unspecified morphologic changes
CPT/HCPCS: 36415; 80048; 83880

== ENCOUNTER 2021-09-14 17:08 | Emergency (ER) | payer MEDICARE, MEDICAID, OTHER, SELFPAY ==
[2020-01-12 13:32] VITALS: BMI 23.8
[2021-09-14] VITALS (7 sets, daily range): BP systolic 137–163; BP diastolic 67–77; PULSE 68–77; RESP 18–20; TEMP 36.4–36.9; O2SAT 98–99; BMI 21.8
--- NOTE | 2021-09-14 17:17 | DI.RAD.S_ITS ---
PROCEDURE: XR CHEST 1V INDICATIONS: chest pain TECHNIQUE: One view of the chest was acquired. COMPARISON: [facility], CR, XR CHEST 2V, 03/02/2020, 11:16. [facility], CR, XR CHEST 1V, 01/12/2020, 11:30. FINDINGS: Surgical changes and devices: None. Lungs and pleura: Left basilar scars and atelectasis. Right hemidiaphragm eventration. No pleural effusions or pneumothorax. Mediastinum: Mediastinal contours appear normal. Heart size is normal. Bones and chest wall: No suspicious bony lesions. Overlying soft tissues appear unremarkable. IMPRESSION: No acute cardiopulmonary disease. Dictated by: Noemi Sherwood M.D. on 09/14/2021 at 18:26 Approved by: Noemi Sherwood M.D. on 09/14/2021 at 18:29
--- NOTE | 2021-09-14 17:18 | DI.RAD.S_ITS ---
PROCEDURE: XR ELBOW RT MIN 3V INDICATIONS: hit wall with elbow, pain TECHNIQUE: 3 views of the elbow were acquired. COMPARISON: None. FINDINGS: Bones: No fractures or dislocations. No suspicious bony lesions. Soft tissues: No elbow joint effusion. No suspicious soft tissue calcifications. Soft tissue swelling IMPRESSION: Large elbow effusion. Suspect occult fracture. Dictated by: Noemi Sherwood M.D. on 09/14/2021 at 19:01 Approved by: Noemi Sherwood M.D. on 09/14/2021 at 19:03
[2021-09-14 17:42] LABS: Add Manual Diff / Slide Review NO; Basophils Absolute Auto 100 /uL (0-100); Basophils Percent Auto 0.5 % (0-2); Eosinophils Absolute Auto 400 /uL (0-450); Eosinophils Percent Auto 3.1 % (2-4); Hematocrit 38.3 % (41-53); Hemoglobin 12.7 g/dL (13.5-17.5); Lymphocytes Absolute Auto 600 /uL (1100-4500); Lymphocytes Percent Auto 5.4 % (25-40); Mean Corpuscular HGB Conc 33.1 % (30-36); Mean Corpuscular Volume 90.4 fL (80-100); Monocytes Absolute Auto 1100 /uL (0-900); Monocytes Percent Auto 9.3 % (3-14); Neutrophils Absolute Auto 9500 /uL (1500-7000); Neutrophils Percent Auto 81.7 % (50-75); Platelet Count 274 X10^3/uL (150-400); Red Blood Cell Count 4.24 X10^6/uL (4.5-5.9); White Blood Cell Count 11.6 X10^3/uL (4.5-11.0)
[2021-09-14 17:50] LABS: COVID19 -Nasal RAPID Negative (Negative)
[2021-09-14 17:55] LABS: Alanine Aminotransferase 11 IU/L (<50); Albumin 4.5 g/dL (3.5-5.0); Albumin Globulin Ratio 1.3 (1.0-2.8); Alkaline Phosphatase 155 U/L (38-126); Aspartate Aminotransferase 23 IU/L (17-59); BUN Creatinine Ratio 9.2 (6-22); Bilirubin Total 0.5 mg/dL (0.2-1.3); Blood Urea Nitrogen 25 mg/dL (9-20); Calcium 8.9 mg/dL (8.4-10.2); Carbon Dioxide 20 mmol/L (22-32); Chloride 106 mmol/L (98-107); Creatine Kinase 49 U/L (55-170); Estimated Glomerular Filt Rate 24 mL/min (>60); Globulin 3.6 g/dL (1.7-4.1); Glucose 110 mg/dL (80-110); HEMOLYSIS < 15 (0-50); Lipase 247 U/L (23-300); Magnesium 1.9 mg/dL (1.6-2.3); Potassium 4.6 mmol/L (3.4-5.1); Sodium 135 mmol/L (137-145); Total Protein 8.1 g/dL (6.3-8.2)
[2021-09-14 18:06] LABS: Troponin I < 0.012 ng/mL (0.01-0.034)
[2021-09-14 20:27] LABS: Troponin I < 0.012 ng/mL (0.01-0.034)
--- NOTE | 2021-09-14 21:04 | DI.CT.S_ITS ---
PROCEDURE: CT UE RT WO CON INDICATIONS: Right elbow pain/injury TECHNIQUE: Noncontrast 1-1.5 mm axial sections were acquired through the elbow joint, with coronal and sagittal reformats. COMPARISON: [facility], CR, XR ELBOW RT MIN 3V, 09/14/2021, 17:33. FINDINGS: Image quality: Diagnostic Bones: There is a minimally displaced fracture in the olecranon extending to the articular surface. No other discrete fracture or dislocation. Soft tissues: An elbow joint effusion is redemonstrated. IMPRESSION: 1. Minimally displaced fracture of the olecranon extending to the articular surface in the proximal ulna. Dictated by: Samir Santo M.D. on 09/14/2021 at 23:20 Approved by: Samir Santo M.D. on 09/14/2021 at 23:25
--- NOTE | 2021-09-14 21:04 | ED_ITS ---
HPI - Chest Pain General Chief Complaint: Chest Pain Stated Complaint: rt arm pain, bruising, no known injury Time Seen by Provider: 09/14/21 19:01 Source: patient Mode of arrival: Ambulatory Limitations: no limitations History of Present Illness HPI narrative: Patient here for right elbow pain with limited extension. Patient states he was swatting at a month 2 days ago and hit his right elbow against the wall. He was moving his elbow without any difficulties until this morning and noticed pain and swelling and limited extension to the elbow. There is bruising to the antecubital space as well. Patient is ambidextrous. No previous injury to the right elbow. Denies any chest pain or abdominal pain or back pain. Related Data Home Medications Medication Instructions Recorded Confirmed ascorbic acid (vitamin C) 500 mg 1,000 mg PO DAILY 11/25/18 01/12/20 tablet omeprazole 20 mg capsule,delayed 20 mg PO DAILY 11/25/18 01/12/20 release albuterol sulfate 90 mcg/actuation 2 inh inhalation TID PRN Wheezing 01/12/20 01/12/20 aerosol inhaler (Ventolin HFA) cholecalciferol (vitamin D3) 50 2,000 unit PO DAILY 01/12/20 01/12/20 mcg (2,000 unit) capsule (Vitamin D3) ferrous sulfate 325 mg (65 mg 325 mg PO BID 01/12/20 01/12/20 iron) tablet Previous Rx's Medication Instructions Recorded aspirin 81 mg tablet,delayed 81 mg PO DAILY #30 tabs 11/25/18 release atorvastatin 40 mg tablet 40 mg PO DAILY #30 tabs 11/25/18 furosemide 40 mg tablet 40 mg PO DAILY #30 tabs 01/13/20 metoprolol succinate 50 mg 100 mg PO BID #120 tabs 01/13/20 tablet,extended release 24 hr Allergies Allergy/AdvReac Type Severity Reaction Status Date / Time lisinopril [LISINOPRIL] Allergy Unknown Verified 01/12/20 11:04 Review of Systems Review of Systems Narrative: GENERAL: Denies chills, fatigue, malaise, fever, sweats. HEENT: Denies sinus pain, ear pain, sore throat RESPIRATORY: Denies dyspnea, cough CARDIOVASCULAR: Denies chest pain, palpitations GASTROINTESTINAL: Denies nausea, vomiting, abdominal pain : Denies dysuria, frequency, hematuria MUSCULOSKELETAL: Positive for muscle or bony pain SKIN: Denies rash, skin lesions NEUROLOGIC: Denies weakness, numbness ROS Unobtainable: All systems reviewed & are unremarkable except as noted in HPI and below Patient History Medical History (Updated 09/14/21 @ 23:55 by Jordan Steele MD) Anemia Atrial fibrillation Congestive heart failure Ethmoid sinusitis History of myocardial infarction Surgical History History of coronary artery stent placement Social History household members: family Smoking Status: Former smoker alcohol intake: current substance use type: does not use and marijuana Smoking Status: Former smoker alcohol intake frequency: 3 or more drinks per day Substance Use Type: marijuana Exam Narrative Exam Narrative: GENERAL: in no distress, not toxic not dyspneic HEAD: Normocephalic. EYES: Pupils equal round No scleral icterus. ENT: Mucous membranes moist. NECK: Trachea midline. CARDIOVASCULAR: Regular rate and rhythm without murmurs RESPIRATORY: Clear to auscultation. Breath sounds equal bilaterally. No wheezes, rales, or rhonchi. GASTROINTESTINAL: Abdomen soft, non-tender EXTREMITIES: Examination of right upper extremity. Elbow to finger tips exposed. Limb is warm soft and pink. Strong radial pulse light touch intact to thumb and fingers. 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 There is tenderness to the olecranon. Limited extension to the elbow. Able to bend to 90?. No gross deformity. There is ecchymosis at the antecubital space. Limited supination pronation due to pain as well. BACK: No flank tenderness. NEURO: AOx4. SKIN: Warm and dry PSYCH: Not anxious, is cooperative Initial Vital Signs Initial Vital Signs: Vital Signs Temperature 97.5 F L 09/14/21 17:13 Pulse Rate 76 09/14/21 17:13 Respiratory Rate 18 09/14/21 17:13 Blood Pressure 159/76 H 09/14/21 17:13 Pulse Oximetry 99 09/14/21 17:13 Oxygen Delivery Method 09/14/21 17:13 Procedures Orthopedic Splinting/Casting Injury #1: Time of procedure: 23:54 Side: right Upper Extremity Injury Location: elbow Upper Extremity Immobilizer: sling/shoulder immobilizer and posterior splint Post splinting neuro exam: no change Post splinting vascular exam: intact Placed by: Nursing Course Course Course Narrative: No new issues during course of stay Orders Ordered: ED Orders 09/14/21 21:04 CT UE RT wo con Stat Reevaluation(s) Reevaluation #1: Reviewed results with patient and does agree for CT scan of the elbow Time: 21:07 Reevaluation #2: Reviewed CT scan results with patient and . Also by discussion with orthopedic. Agrees with treatment plan and follow-up. Pain is controlled. Time: 23:52 Consultations Consultation #1: Reviewed with Orthopedic, Dr. Louie, place 45? posterior long arm. Hand a sling. He will see patient in the office. Time: 23:47 Vital Signs Vital signs: Vital Signs - 8 hr 09/14/21 23:51 Temperature 98.4 F Pulse Rate 70 Respiratory Rate 20 Blood Pressure 145/77 H Pulse Oximetry 98 Oxygen Delivery Method Room Air MDM - Chest Pain Differential Diagnosis Differential diagnosis: Likely other (Elbow fracture/contusion/sprain/sprain/strain) Lab Data Result diagrams: 09/14/21 17:26 09/14/21 17:26 Labs: Lab Results 09/14/21 09/14/21 09/14/21 Range/Units 17:26 17:26 17:26 WBC 11.6 H (4.5-11.0) X10^3/uL RBC 4.24 L (4.5-5.9) X10^6/uL Hgb 12.7 L (13.5-17.5) g/dL Hct 38.3 L (41-53) % MCV 90.4 (80-100) fL MCH 30.0 (26-34) PG MCHC 33.1 (30-36) % RDW 14.0 (11.6-14.8) % Plt Count 274 (150-400) X10^3/uL Neut % (Auto) 81.7 H (50-75) % Lymph % (Auto) 5.4 L (25-40) % Cameron % (Auto) 9.3 (3-14) % Eos % (Auto) 3.1 (2-4) % Baso % (Auto) 0.5 (0-2) % Neut # (Auto) 9500 H (4233-6870) /uL Lymph # (Auto) 600 L (2595-5439) /uL Cameron # (Auto) 1100 H (0-900) /uL Eos # (Auto) 400 (0-450) /uL Baso # (Auto) 100 (0-100) /uL Sodium 135 L (137-145) mmol/L Potassium 4.6 (3.4-5.1) mmol/L Chloride 106 (98-107) mmol/L Carbon Dioxide 20 L (22-32) mmol/L BUN 25 H (9-20) mg/dL Creatinine 2.71 H (0.66-1.25) mg/dL Estimated GFR 24 L (>60) mL/min BUN/Creatinine Ratio 9.2 (6-22) Glucose 110 (80-110) mg/dL Calcium 8.9 (8.4-10.2) mg/dL Magnesium 1.9 (1.6-2.3) mg/dL Total Bilirubin 0.5 (0.2-1.3) mg/dL AST 23 (17-59) IU/L ALT 11 (<50) IU/L Alkaline Phosphatase 155 H (38-126) U/L Total Creatine Kinase 49 L (55-170) U/L CK-MB (CK-2) TNP CK-MB (CK-2) Rel Index TNP Troponin I < 0.012 (0.01-0.034) ng/mL Total Protein 8.1 (6.3-8.2) g/dL Albumin 4.5 (3.5-5.0) g/dL Globulin 3.6 (1.7-4.1) g/dL Albumin/Globulin Ratio 1.3 (1.0-2.8) Lipase 247 (23-300) U/L SARS-CoV-2 (PCR) Negative (Negative) 09/14/21 Range/Units 19:45 WBC (4.5-11.0) X10^3/uL RBC (4.5-5.9) X10^6/uL Hgb (13.5-17.5) g/dL Hct (41-53) % MCV (80-100) fL MCH (26-34) PG MCHC (30-36) % RDW (11.6-14.8) % Plt Count (150-400) X10^3/uL Neut % (Auto) (50-75) % Lymph % (Auto) (25-40) % Cameron % (Auto) (3-14) % Eos % (Auto) (2-4) % Baso % (Auto) (0-2) % Neut # (Auto) (7670-6923) /uL Lymph # (Auto) (5977-5607) /uL Cameron # (Auto) (0-900) /uL Eos # (Auto) (0-450) /uL Baso # (Auto) (0-100) /uL Sodium (137-145) mmol/L Potassium (3.4-5.1) mmol/L Chloride (98-107) mmol/L Carbon Dioxide (22-32) mmol/L BUN (9-20) mg/dL Creatinine (0.66-1.25) mg/dL Estimated GFR (>60) mL/min BUN/Creatinine Ratio (6-22) Glucose (80-110) mg/dL Calcium (8.4-10.2) mg/dL Magnesium (1.6-2.3) mg/dL Total Bilirubin (0.2-1.3) mg/dL AST (17-59) IU/L ALT (<50) IU/L Alkaline Phosphatase (38-126) U/L Total Creatine Kinase (55-170) U/L CK-MB (CK-2) CK-MB (CK-2) Rel Index Troponin I < 0.012 (0.01-0.034) ng/mL Total Protein (6.3-8.2) g/dL Albumin (3.5-5.0) g/dL Globulin (1.7-4.1) g/dL Albumin/Globulin Ratio (1.0-2.8) Lipase (23-300) U/L SARS-CoV-2 (PCR) (Negative) Imaging Data Chest x-ray: Radiologist's Impression: [address] [address] XRay Report Signed Patient: Ulisses Anderson MR#: [id number] : 1945 Acct:[id number] Age/Sex: 76 / M Date of Service: 09/14/21 Loc: ED Accession Number: [id number] ?? Procedure: XR chest 1V Ordering Provider: Amira Govea D.O. PROCEDURE:? XR CHEST 1V ? INDICATIONS:? chest pain ? TECHNIQUE:? One view of the chest was acquired.? ? COMPARISON:? [facility], CR, XR CHEST 2V, 03/02/2020, 11:16.? [facility], CR, XR CHEST 1V, 01/12/2020, 11:30. ? FINDINGS:? ? Surgical changes and devices:? None.? ? Lungs and pleura:? Left basilar scars and atelectasis.? Right hemidiaphragm eventration.? No pleural effusions or pneumothorax.? ? Mediastinum:? Mediastinal contours appear normal.? Heart size is normal.? ? Bones and chest wall:? No suspicious bony lesions.? Overlying soft tissues appear unremarkable.? ? IMPRESSION:? No acute cardiopulmonary disease. ? ? Dictated by: Noemi Sherwood M.D. on 09/14/2021 at 18:26 ? ? Approved by: Noemi Sherwood M.D. on 09/14/2021 at 18:29 ? Extremity x-ray #1: Radiologist's Impression: [address] [address] XRay Report Signed Patient: Ulisses Anderson MR#: [id number] : 1945 Acct:[id number] Age/Sex: 76 / M Date of Service: 09/14/21 Loc: ED Accession Number: [id number] ?? Procedure: XR elbow RT min 3V Ordering Provider: Amira Govea D.O. PROCEDURE:? XR ELBOW RT MIN 3V ? INDICATIONS:? hit wall with elbow, pain ? TECHNIQUE:? 3 views of the elbow were acquired.? ? COMPARISON:? None. ? FINDINGS:? ? Bones:? No fractures or dislocations.? No suspicious bony lesions.? ? Soft tissues:? No elbow joint effusion.? No suspicious soft tissue calcifications.? Soft tissue swelling? ? ? IMPRESSION:? Large elbow effusion.? Suspect occult fracture. ? ? Dictated by: Noemi Sherwood M.D. on 09/14/2021 at 19:01 ? ? Approved by: Noemi Sherwood M.D. on 09/14/2021 at 19:03 ? CT right elbow: Radiologist's Impression: [address] [address] [address] Scan Report Signed Patient: Ulisses Anderson MR#: [id number] : 1945 Acct:[id number] Age/Sex: 76 / M Date of Service: 09/14/21 Loc: ED Accession Number: [id number] ?? Procedure: CT UE RT wo con Ordering Provider: Jordan Steele MD PROCEDURE:? CT UE RT WO CON ? INDICATIONS:? Right elbow pain/injury ? TECHNIQUE:? Noncontrast 1-1.5 mm axial sections were acquired through the elbow joint, with coronal and sagittal reformats.? ? COMPARISON:? [facility], CR, XR ELBOW RT MIN 3V, 09/14/2021, 17:33. ? FINDINGS:? Image quality:? Diagnostic ? Bones:? There is a minimally displaced fracture in the olecranon extending to the articular surface.? No other discrete fracture or dislocation. ? Soft tissues:? An elbow joint effusion is redemonstrated. ? IMPRESSION:? ? 1.? Minimally displaced fracture of the olecranon extending to the articular surface in the proximal ulna.? ? ? Dictated by: Samir Santo M.D. on 09/14/2021 at 23:20 ? ? Approved by: Samir Santo M.D. on 09/14/2021 at 23:25 ? ECG Data Interpretation: Normal sinus rhythm rate 80. No ST elevation or depression MDM Narrative Medical decision making narrative: Appropriate for discharge home. I did review with orthopedic doctor, dr varner. Splint to be applied here. Follow-up in the office. Return precautions reviewed patient and . is driving. Pain is controlled. Discharge Plan Departure Patient Disposition: Home Clinical Impression: Closed fracture of elbow Instructions: DI for Elbow Fracture Activity Restrictions/Additional Instructions: Call provided orthopedic office in the morning for office recheck within a week. Use splint and sling until office time. May continue home Tylenol for pain. Return if worsening questions or concerns or if increased pain or any discoloration to the arm or hand or fingers. Prescriptions: No Action ascorbic acid (vitamin C) 500 mg Tablet 1,000 mg PO DAILY omeprazole 20 mg Capsule,Delayed Release(Dr/Ec) 20 mg PO DAILY atorvastatin 40 mg tablet 40 mg PO DAILY Qty: 30 0RF aspirin 81 mg tablet,delayed release (DR/EC) 81 mg PO DAILY Qty: 30 0RF ferrous sulfate 325 mg (65 mg iron) Tablet 325 mg PO BID cholecalciferol (vitamin D3) [Vitamin D3] 50 mcg (2,000 unit) capsule 2,000 unit PO DAILY Label Comments: TAKE 1 TABLET BY MOUTH DAILY albuterol sulfate [Ventolin HFA] 90 mcg/actuation HFA aerosol inhaler 2 inh INHALATION TID PRN (Reason: Wheezing) furosemide 40 mg Tablet 40 mg PO DAILY Qty: 30 0RF metoprolol succinate 50 mg tablet extended release 24 hr 100 mg PO BID Qty: 120 0RF Referrals: Vneus Gallo MD [Primary Care Provider] - Yunior Varner MD [Physician] - Visit Report Forms: Patient Portal/API
== END 2021-09-15 00:20 | disposition home or self-care (01) ==
PROVIDERS: Emergency Medicine; Emergency Provider Emergency Medicine; PCP Family Medicine
DX: S52.021A Displaced fracture of olecranon process without intraarticular extension of right ulna, initial encounter for closed fracture (principal); W22.8XXA Striking against or struck by other objects, initial encounter; Z20.822 Contact with and (suspected) exposure to COVID-19; R07.9 Chest pain, unspecified
CPT/HCPCS: 29105; 36415; 71045; 73080; 73200; 80053; 82550; 83690; 83735; 84484; 85025; 87635; 93005; 93010; 99284; C9803

== ENCOUNTER → 2021-09-27 13:16 | Outpatient (CLI) | payer MEDICARE, OTHER, SELFPAY ==
[2020-01-12 13:32] VITALS: BMI 23.8
[2021-09-27 13:49] LABS: Hematocrit 36.3 % (41-53); Hemoglobin 12.1 g/dL (13.5-17.5)
[2021-09-27 14:32] LABS: BUN Creatinine Ratio 7.3 (6-22); Blood Urea Nitrogen 20 mg/dL (9-20); Calcium 9.1 mg/dL (8.4-10.2); Carbon Dioxide 24 mmol/L (22-32); Chloride 105 mmol/L (98-107); Estimated Glomerular Filt Rate 23 mL/min (>60); Glucose 86 mg/dL (80-110); HEMOLYSIS < 15 (0-50); Potassium 4.4 mmol/L (3.4-5.1); Sodium 138 mmol/L (137-145)
[2021-09-28 05:29] LABS: Parathyroid Hormone Int 31 pg/mL (15-65)
== END ==
PROVIDERS: PCP Family Medicine; Referring Provider Student in an Organized Health Care Education/Training Program; Visit Provider Student in an Organized Health Care Education/Training Program
DX: N05.9 Unspecified nephritic syndrome with unspecified morphologic changes (principal); D64.9 Anemia, unspecified; N25.81 Secondary hyperparathyroidism of renal origin
CPT/HCPCS: 36415; 80048; 83970; 85014; 85018

== ENCOUNTER → 2021-12-01 14:11 | Outpatient (CLI) | payer MEDICARE, OTHER, SELFPAY ==
[2020-01-12 13:32] VITALS: BMI 23.8
[2021-12-01 15:22] LABS: Hematocrit 38.6 % (41-53); Hemoglobin 12.8 g/dL (13.5-17.5)
[2021-12-01 15:50] LABS: BUN Creatinine Ratio 9.7 (6-22); Blood Urea Nitrogen 26 mg/dL (9-20); Calcium 9.4 mg/dL (8.4-10.2); Carbon Dioxide 19 mmol/L (22-32); Chloride 101 mmol/L (98-107); Estimated Glomerular Filt Rate 24 mL/min (>60); Glucose 95 mg/dL (80-110); HEMOLYSIS < 15 (0-50); Potassium 4.4 mmol/L (3.4-5.1); Sodium 135 mmol/L (137-145)
[2021-12-01 16:05] LABS: Creatinine Urine Random 201.7 mg/dL; Protein (Total) Urine Random 103 mg/dL (0-12); Protein Creatinine Ratio Urine 0.51 GRAM/24H
[2021-12-03 09:11] LABS: Parathyroid Hormone Int 63 pg/mL (15-65)
== END ==
PROVIDERS: PCP Family Medicine; Referring Provider Student in an Organized Health Care Education/Training Program; Visit Provider Student in an Organized Health Care Education/Training Program
DX: N05.9 Unspecified nephritic syndrome with unspecified morphologic changes (principal); D64.9 Anemia, unspecified; N25.81 Secondary hyperparathyroidism of renal origin; R80.9 Proteinuria, unspecified
CPT/HCPCS: 36415; 80048; 82570; 83970; 84156; 85014; 85018

== ENCOUNTER → 2022-01-12 11:24 | Outpatient (CLI) | payer MEDICARE, OTHER, SELFPAY ==
[2020-01-12 13:32] VITALS: BMI 23.8
[2022-01-12 12:51] LABS: Hematocrit 35.8 % (41-53); Hemoglobin 12.1 g/dL (13.5-17.5)
[2022-01-12 13:07] LABS: BUN Creatinine Ratio 11.5 (6-22); Blood Urea Nitrogen 29 mg/dL (9-20); Calcium 9.1 mg/dL (8.4-10.2); Carbon Dioxide 25 mmol/L (22-32); Chloride 101 mmol/L (98-107); Estimated Glomerular Filt Rate 26 mL/min (>60); Glucose 107 mg/dL (80-110); HEMOLYSIS < 15 (0-50); Potassium 4.8 mmol/L (3.4-5.1); Sodium 138 mmol/L (137-145)
[2022-01-12 15:42] LABS: Creatinine Urine Random 196.8 mg/dL; Protein (Total) Urine Random 120 mg/dL (0-12)
[2022-01-13 09:44] LABS: Parathyroid Hormone Int 61 pg/mL (15-65)
== END ==
PROVIDERS: PCP Family Medicine; Referring Provider Student in an Organized Health Care Education/Training Program; Visit Provider Student in an Organized Health Care Education/Training Program
DX: N05.9 Unspecified nephritic syndrome with unspecified morphologic changes (principal); D64.9 Anemia, unspecified; N25.81 Secondary hyperparathyroidism of renal origin; R80.9 Proteinuria, unspecified
CPT/HCPCS: 36415; 80048; 82570; 83970; 84156; 85014; 85018

== ENCOUNTER 2022-02-02 03:33 | Emergency (ER) | payer MEDICARE, MEDICAID, OTHER, SELFPAY ==
[2020-01-12 13:32] VITALS: BMI 23.8
[2022-02-02] VITALS (21 sets, daily range): BP systolic 99–147; BP diastolic 56–75; PULSE 57–81; RESP 13–32; TEMP 36.7; O2SAT 95–99; BMI 24.3
--- NOTE | 2022-02-02 03:37 | DI.RAD.S_ITS ---
PROCEDURE: XR CHEST 1V INDICATIONS: chest pain TECHNIQUE: One view of the chest was acquired. COMPARISON: [facility], CR, XR CHEST 2V, 03/02/2020, 11:16. [facility], CR, XR CHEST 1V, 09/14/2021, 17:33. FINDINGS: Surgical changes and devices: None. Lungs and pleura: Lungs are clear. No pleural effusions or pneumothorax. Mediastinum: Mediastinal contours appear normal. Heart size is normal. Bones and chest wall: No suspicious bony lesions. Overlying soft tissues appear unremarkable. IMPRESSION: No acute cardiopulmonary disease. Dictated by: Noemi Sherwood M.D. on 02/02/2022 at 8:47 Approved by: Noemi Sherwood M.D. on 02/02/2022 at 8:48
--- NOTE | 2022-02-02 03:38 | ED_ITS ---
HPI - Chest Pain <Jordan Steele MD - Last Filed: 02/11/22 08:31> General Chief Complaint: Arrhythmia/Palpitations Stated Complaint: Chest Pain Time Seen by Provider: 02/02/22 03:36 History of Present Illness HPI narrative: Patient brought in by ambulance from home. Has history of NC and paroxysmal atrial fibrillation is on aspirin and metoprolol. He did miss his medications yesterday. Complained of chest discomfort just prior to arrival and he called EMS. EMS reports his rate was around 180. He was given total of 15 mg of Cardizem IV and brought his heart rate down to 130. Patient took full aspirin and 2 nitro at home prior to EMS arrival without relief. Denies any recent illness. Patient in no distress at this time. Patient sees Dr. Danielle with [facility]. Last echocardiogram [address] [address] Echocardiography Report Signed Patient: Ulisses Anderson MR#: [id number] : 1945 Acct:[id number] Age/Sex: 75 / M Date of Service: 01/12/20 Loc: 207-1 Accession Number: [id number] ?? Procedure: EC echo doppler complete Ordering Provider: Jocelyn Carlson D.O. ? [facility] +---------+? [facility]? +---------+ : ? :? [address] [place] [address] ? : ? : : ? :? [place], [place] ? : ? : : ? :? [id number] ? : ? : : ? : ? Phone: [phone] : ? : [phone]? [phone]? +---------+ ? Echocardiogram Report + + :Name: ULISSES ANDERSON ? Study Date: 01/13/2020 ? Height: 69 in? : :[facility] ? Weight: 161 lb : : ? Gender: Male ? BSA: 1.9 m2? ? : :: 1945? Age: 75 yrs? BP: 109/79 mmHg: :Reason For Study: Atrial fibrillation, HEART FAILURE REDUCED ? : :EJECTION FRACTION? : :Ordering Physician: [place] ? : :Hospitalist? Performed By: Dawn Chang? : :Referring: JOCELYN CARLSON? : + + Interpretation Summary The left ventricle is moderately dilated. The ejection fraction is estimated to be 15-20%. There is severe global hypokinesis of the left ventricle. Right ventricular systolic function is moderately reduced. There is severe biatrial enlargement. There is severe mitral regurgitation. There is moderate tricuspid regurgitation. The right ventricular systolic pressure is estimated to be at least 44 mmHg based on an estimated right atrial pressure of 15 mm Hg. ? Procedure: ? A two-dimensional transthoracic echocardiogram with color flow and Doppler was performed. The study quality was technically adequate. Comparison is made with the echocardiogram of 01/10/2019. A contrast injection of Definity was performed to improve assessment for apical thrombus. Contrast was injected into an intravenous site in the right arm. The patient was in atrial fibrillation with heart rates between 72-94 bpm during the exam. Left Ventricle: ? The left ventricle is moderately dilated. There is normal left ventricular wall thickness. The ejection fraction is estimated to be 15- 20%. There is severe global hypokinesis of the left ventricle. Diastolic function could not be accurately assessed due to atrial fibrillation. Right Ventricle: ? The right ventricle is mildly dilated. Right ventricular systolic function is moderately reduced. Atria: ? The left atrium is severely dilated. There is severe biatrial enlargement. The right atrium is severely dilated. There is no Doppler evidence for an interatrial shunt. Mitral Valve: ? There is mild mitral annular calcification. The mitral valve is normal in structure but abnormal in function. There is severe mitral regurgitation. Aortic Valve: ? The aortic valve is trileaflet. The aortic valve is mildly calcified. There is no aortic valve stenosis. No aortic regurgitation is present. Tricuspid Valve: ? The tricuspid valve leaflets are thin and pliable. The tricuspid annulus is dilated. There is moderate tricuspid regurgitation. The right ventricular systolic pressure is estimated to be at least 44 mmHg based on an estimated right atrial pressure of 15 mm Hg. Pulmonic Valve: ? The pulmonic valve leaflets are thin and pliable; valve motion is normal. There is trace pulmonic regurgitation. Great Vessels: ? The aortic root is normal size. The ascending aorta is mildly enlarged. The IVC is dilated (diameter is greater than 2.1 cm) and it collapses less than 50% with a sniff. This suggests a high right atrial pressure of 15 mm Hg. Pericardium/ Pleura ? There is no pericardial effusion. There is no pleural effusion. ? MMode/2D Measurements & Calculations LVIDd: 6.5 cm? LVOT diam: 2.2 cm LVIDs: 6.2 cm? Ao root diam: 3.2 cm FS: 5.6 %? asc Aorta Diam: 3.5 cm EPSS: 1.8 cm ? Ao Arch Diam (Prox Trans): 3.5 cm IVSd: 0.59 cm LVPWd: 0.76 cm LV fitzpatrick. diameter/BSA (cm/m^2): 3.5 LV sys. diameter/BSA (cm/m^2): 3.3 ? LA A2 area: 32.0 cm2 ? RA long axis: 6.3 cm LA A4 area: 29.6 cm2 ? RA area: 27.5 cm2 LA length (vol): 6.8 cm? RA vol: 102.2 ml LA vol: 117.3 ml ? RA : 54.3 ml/m2 LA vol index: 62.3 ml/m2 ? IVC diam: 2.2 cm ? RVD1 (basal): 4.4 cm TAPSE: 1.3 cm ? Doppler Measurements & Calculations Ao V2 max: 99.8 cm/sec? LVOT Max Agustin: 60.2 cm/sec Ao V2 mean: 66.8 cm/sec ? LV V1 max P.5 mmHg Ao max P.0 mmHg ? LV V1 VTI: 9.4 cm Ao mean P.1 mmHg? MATI(I,D): 2.1 cm2 Ao V2 VTI: 16.1 cm? MATI(V,D): 2.2 cm2 ? sev ratio: 0.58 ? MATI indexed to BSA (cm^2/m^2): 1.1 ? MV E max agustin: 93.6 cm/sec ? TR max agustin: 261.2 cm/sec MV A max agustin: 0.72 cm/sec ? TR max P.0 mmHg MV E/A: 130.6 ? PA V2 max: 30.4 cm/sec Med Peak E' Agustin: 4.9 cm/sec ? ? ? PA V2 mean: 19.2 cm/sec E/E' med: 19.1? PA mean P.18 mmHg Lat Peak E' Agustin: 9.4 cm/sec ? ? ? PA pr(Accel): 51.6 mmHg E/E' lat: 10.0 E/e' average: 14.5 MV dec time: 0.17 sec MR ERO: 0.37 cm2 ? MR PISA: 4.2 cm2? SV(LVOT): 34.6 ml MR flow rate: 154.3 cm3/sec MR PISA radius: 0.82 cm ? Reading Physician:01:29 PM Related Data Home Medications Medication Instructions Recorded Confirmed ascorbic acid (vitamin C) 500 mg 1,000 mg PO DAILY 11/25/18 01/12/20 tablet omeprazole 20 mg capsule,delayed 20 mg PO DAILY 11/25/18 01/12/20 release albuterol sulfate 90 mcg/actuation 2 inh inhalation TID PRN Wheezing 01/12/20 01/12/20 aerosol inhaler (Ventolin HFA) cholecalciferol (vitamin D3) 50 2,000 unit PO DAILY 01/12/20 01/12/20 mcg (2,000 unit) capsule (Vitamin D3) ferrous sulfate 325 mg (65 mg 325 mg PO BID 01/12/20 01/12/20 iron) tablet Previous Rx's Medication Instructions Recorded aspirin 81 mg tablet,delayed 81 mg PO DAILY #30 tabs 11/25/18 release atorvastatin 40 mg tablet 40 mg PO DAILY #30 tabs 11/25/18 furosemide 40 mg tablet 40 mg PO DAILY #30 tabs 01/13/20 metoprolol succinate 50 mg 100 mg PO BID #120 tabs 01/13/20 tablet,extended release 24 hr metoprolol succinate 100 mg 100 mg PO BID #120 ea 02/02/22 capsule sprinkle, ext. release 24 hr Allergies Allergy/AdvReac Type Severity Reaction Status Date / Time lisinopril [LISINOPRIL] Allergy Unknown Verified 01/12/20 11:04 Review of Systems <Jordan Steele MD - Last Filed: 02/11/22 08:31> Review of Systems Narrative: GENERAL: Denies chills, fatigue, malaise, fever, sweats. HEENT: Denies sinus pain, ear pain, sore throat RESPIRATORY: Denies dyspnea, cough CARDIOVASCULAR: Positive for chest pain, palpitations GASTROINTESTINAL: Denies nausea, vomiting, abdominal pain : Denies dysuria, frequency, hematuria MUSCULOSKELETAL: denies muscle or bony pain SKIN: Denies rash, skin lesions NEUROLOGIC: Denies weakness, numbness ROS Unobtainable: All systems reviewed & are unremarkable except as noted in HPI and below Patient History <Jordan Steele MD - Last Filed: 02/11/22 08:31> Medical History (Updated 02/02/22 @ 18:44 by Liliana Amaya DO) Anemia Atrial fibrillation Congestive heart failure Ethmoid sinusitis History of myocardial infarction Surgical History History of coronary artery stent placement Social History household members: family Smoking Status: Former smoker alcohol intake: current substance use type: does not use and marijuana Smoking Status: Former smoker alcohol intake frequency: 3 or more drinks per day Substance Use Type: marijuana Exam <Jordan Steele MD - Last Filed: 02/11/22 08:31> Narrative Exam Narrative: GENERAL: in no distress, not toxic not dyspneic HEAD: Normocephalic. EYES: Pupils equal round No scleral icterus. ENT: Mucous membranes moist. NECK: Trachea midline. CARDIOVASCULAR: Irregulary irregular, rate [address] elevation or depression RESPIRATORY: Clear to auscultation. Breath sounds equal bilaterally. No wheezes, rales, or rhonchi. GASTROINTESTINAL: Abdomen soft, non-tender EXTREMITIES: No gross deformities. BACK: No flank tenderness. NEURO: AOx4. SKIN: Warm and dry PSYCH: Not anxious, is cooperative Initial Vital Signs Initial Vital Signs: Vital Signs Temperature 98.0 F 02/02/22 03:41 Pulse Rate 79 02/02/22 03:41 Respiratory Rate 20 02/02/22 03:41 Blood Pressure 134/75 02/02/22 03:41 Pulse Oximetry 99 02/02/22 03:41 Oxygen Delivery Method 02/02/22 03:41 <Liliana Amaya DO - Last Filed: 02/02/22 18:44> Initial Vital Signs Initial Vital Signs: Vital Signs Temperature 98.0 F 02/02/22 03:41 Pulse Rate 79 02/02/22 03:41 Respiratory Rate 20 02/02/22 03:41 Blood Pressure 134/75 02/02/22 03:41 Pulse Oximetry 99 02/02/22 03:41 Oxygen Delivery Method 02/02/22 03:41 Course <Jordan Steele MD - Last Filed: 02/11/22 08:31> Course Course Narrative: February 02, 2022 at 7:00 a.m.. Sign out to Dr. Amaya, patient remains chest pain-free after spontaneous conversion to sinus rhythm shortly after arrival. Repeat troponin at 7:00 a.m.. Will need to contact Dr. Danielle/staff/cardiology to update. Orders Ordered: Discontinued Medications Aspirin (Aspirin 81 Mg Chew Tab) 324 mg PO NOW ONE Stop: 02/02/22 08:40 Last Admin: 02/02/22 09:59 Dose: 324 mg Documented By: JOSÉ MIGUEL DILTIAZEM (Diltiazem 125 Mg/125 Ml-D5w) 125 mg in 125 mls @ 5 mls/hr IV TITRATE BALJIT; Protocol Last Admin: 02/02/22 06:44 Dose: Not Given Documented By: TERESA Vital Signs Vital signs: Vital Signs - 8 hr 02/02/22 11:00 02/02/22 11:00 02/02/22 11:30 Pulse Rate 68 Respiratory Rate 18 Blood Pressure 114/58 L 123/58 L Pulse Oximetry 96 Oxygen Delivery Method 02/02/22 11:30 02/02/22 12:00 02/02/22 12:00 Pulse Rate 66 80 Respiratory Rate 16 13 Blood Pressure 147/67 H Pulse Oximetry 95 99 Oxygen Delivery Method Room Air 02/02/22 12:30 02/02/22 12:30 Pulse Rate 76 Respiratory Rate 16 Blood Pressure 140/65 Pulse Oximetry 98 Oxygen Delivery Method Room Air <Liliana Amaya DO - Last Filed: 02/02/22 18:44> Orders Ordered: Discontinued Medications Aspirin (Aspirin 81 Mg Chew Tab) 324 mg PO NOW ONE Stop: 02/02/22 08:40 Last Admin: 02/02/22 09:59 Dose: 324 mg Documented By: JOSÉ MIGUEL DILTIAZEM (Diltiazem 125 Mg/125 Ml-D5w) 125 mg in 125 mls @ 5 mls/hr IV TITRATE BALJIT; Protocol Last Admin: 02/02/22 06:44 Dose: Not Given Documented By: MLM Consultations Consultation #1: Dr. Lira, cardiology. Suspect demand ischemia bed agrees with plan to repeat troponin we could do a 2nd 4 hour from initial or to our from the 7:00 a.m. troponin. If stable or trending down words can return home, if continuing to trend upwards would recommend observation and echo. Time: :22 Vital Signs Vital signs: Vital Signs - 8 hr 02/02/22 11:00 02/02/22 11:00 02/02/22 11:30 Pulse Rate 68 Respiratory Rate 18 Blood Pressure 114/58 L 123/58 L Pulse Oximetry 96 Oxygen Delivery Method 02/02/22 11:30 02/02/22 12:00 02/02/22 12:00 Pulse Rate 66 80 Respiratory Rate 16 13 Blood Pressure 147/67 H Pulse Oximetry 95 99 Oxygen Delivery Method Room Air 02/02/22 12:30 02/02/22 12:30 Pulse Rate 76 Respiratory Rate 16 Blood Pressure 140/65 Pulse Oximetry 98 Oxygen Delivery Method Room Air MDM - Chest Pain <Jordan Steele MD - Last Filed: 02/11/22 08:31> Differential Diagnosis Differential diagnosis: Likely stable angina, unstable angina pectoris, atypical chest pain, st elevation myocardial infarction, chest pain and other (Atrial fibrillation) Lab Data Result diagrams: 02/02/22 03:20 02/02/22 03:20 Labs: Lab Results 02/02/22 02/02/22 02/02/22 Range/Units 03:20 03:20 03:20 WBC 9.6 (4.5-11.0) X10^3/uL RBC 4.56 (4.5-5.9) X10^6/uL Hgb 13.3 L (13.5-17.5) g/dL Hct 40.0 L (41-53) % MCV 87.8 (80-100) fL MCH 29.1 (26-34) PG MCHC 33.2 (30-36) % RDW 13.8 (11.6-14.8) % Plt Count 299 (150-400) X10^3/uL Neut % (Auto) 63.8 (50-75) % Lymph % (Auto) 16.2 L (25-40) % Keith % (Auto) 14.0 (3-14) % Eos % (Auto) 4.8 H (2-4) % Baso % (Auto) 1.2 (0-2) % Neut # (Auto) 6100 (8382-6929) /uL Lymph # (Auto) 1600 (4893-7045) /uL Keith # (Auto) 1300 H (0-900) /uL Eos # (Auto) 500 H (0-450) /uL Baso # (Auto) 100 (0-100) /uL PT 10.8 (10.1-12.7) SECONDS INR 0.9 (0.9-1.3) APTT 29 (26-36) SECONDS Sodium 135 L (137-145) mmol/L Potassium 4.7 (3.4-5.1) mmol/L Chloride 103 (98-107) mmol/L Carbon Dioxide 16 L (22-32) mmol/L BUN 29 H (9-20) mg/dL Creatinine 2.92 H (0.66-1.25) mg/dL Estimated GFR 22 L (>60) mL/min BUN/Creatinine Ratio 9.9 (6-22) Glucose 79 L (80-110) mg/dL Calcium 9.5 (8.4-10.2) mg/dL Magnesium (1.6-2.3) mg/dL Total Bilirubin 1.2 (0.2-1.3) mg/dL AST 25 (17-59) IU/L ALT 19 (<50) IU/L Alkaline Phosphatase 164 H (38-126) U/L Total Creatine Kinase 68 (55-170) U/L CK-MB (CK-2) TNP CK-MB (CK-2) Rel Index TNP Troponin I 0.023 (0.01-0.034) ng/mL NT-Pro-B Natriuret Pep 4460 H (<450) pg/mL Total Protein 8.0 (6.3-8.2) g/dL Albumin 4.4 (3.5-5.0) g/dL Globulin 3.6 (1.7-4.1) g/dL Albumin/Globulin Ratio 1.2 (1.0-2.8) SARS-CoV-2 (PCR) (Negative) 02/02/22 02/02/22 02/02/22 Range/Units 03:20 06:55 06:55 WBC (4.5-11.0) X10^3/uL RBC (4.5-5.9) X10^6/uL Hgb (13.5-17.5) g/dL Hct (41-53) % MCV (80-100) fL MCH (26-34) PG MCHC (30-36) % RDW (11.6-14.8) % Plt Count (150-400) X10^3/uL Neut % (Auto) (50-75) % Lymph % (Auto) (25-40) % Keith % (Auto) (3-14) % Eos % (Auto) (2-4) % Baso % (Auto) (0-2) % Neut # (Auto) (4591-3445) /uL Lymph # (Auto) (9923-4178) /uL Keith # (Auto) (0-900) /uL Eos # (Auto) (0-450) /uL Baso # (Auto) (0-100) /uL PT (10.1-12.7) SECONDS INR (0.9-1.3) APTT (26-36) SECONDS Sodium (137-145) mmol/L Potassium (3.4-5.1) mmol/L Chloride (98-107) mmol/L Carbon Dioxide (22-32) mmol/L BUN (9-20) mg/dL Creatinine (0.66-1.25) mg/dL Estimated GFR (>60) mL/min BUN/Creatinine Ratio (6-22) Glucose (80-110) mg/dL Calcium (8.4-10.2) mg/dL Magnesium 1.8 (1.6-2.3) mg/dL Total Bilirubin (0.2-1.3) mg/dL AST (17-59) IU/L ALT (<50) IU/L Alkaline Phosphatase (38-126) U/L Total Creatine Kinase 52 L (55-170) U/L CK-MB (CK-2) TNP CK-MB (CK-2) Rel Index TNP Troponin I 0.059 H (0.01-0.034) ng/mL NT-Pro-B Natriuret Pep Cancelled (<450) pg/mL Total Protein (6.3-8.2) g/dL Albumin (3.5-5.0) g/dL Globulin (1.7-4.1) g/dL Albumin/Globulin Ratio (1.0-2.8) SARS-CoV-2 (PCR) (Negative) 02/02/22 02/02/22 Range/Units 08:16 10:02 WBC (4.5-11.0) X10^3/uL RBC (4.5-5.9) X10^6/uL Hgb (13.5-17.5) g/dL Hct (41-53) % MCV (80-100) fL MCH (26-34) PG MCHC (30-36) % RDW (11.6-14.8) % Plt Count (150-400) X10^3/uL Neut % (Auto) (50-75) % Lymph % (Auto) (25-40) % Keith % (Auto) (3-14) % Eos % (Auto) (2-4) % Baso % (Auto) (0-2) % Neut # (Auto) (5990-2986) /uL Lymph # (Auto) (0046-6908) /uL Keith # (Auto) (0-900) /uL Eos # (Auto) (0-450) /uL Baso # (Auto) (0-100) /uL PT (10.1-12.7) SECONDS INR (0.9-1.3) APTT (26-36) SECONDS Sodium (137-145) mmol/L Potassium (3.4-5.1) mmol/L Chloride (98-107) mmol/L Carbon Dioxide (22-32) mmol/L BUN (9-20) mg/dL Creatinine (0.66-1.25) mg/dL Estimated GFR (>60) mL/min BUN/Creatinine Ratio (6-22) Glucose (80-110) mg/dL Calcium (8.4-10.2) mg/dL Magnesium (1.6-2.3) mg/dL Total Bilirubin (0.2-1.3) mg/dL AST (17-59) IU/L ALT (<50) IU/L Alkaline Phosphatase (38-126) U/L Total Creatine Kinase (55-170) U/L CK-MB (CK-2) CK-MB (CK-2) Rel Index Troponin I 0.061 H (0.01-0.034) ng/mL NT-Pro-B Natriuret Pep (<450) pg/mL Total Protein (6.3-8.2) g/dL Albumin (3.5-5.0) g/dL Globulin (1.7-4.1) g/dL Albumin/Globulin Ratio (1.0-2.8) SARS-CoV-2 (PCR) Negative (Negative) ECG Data Interpretation: 1st EKG on arrival Rate 78, atrial fibrillation no ST elevation or depression. 2nd EKG at 4:00 a.m.. Normal sinus rhythm rate [address] elevation or depression. Without additional medication <Liliana Amaya, DO - Last Filed: 02/02/22 18:44> Lab Data Labs: Lab Results 02/02/22 02/02/22 02/02/22 Range/Units 03:20 03:20 03:20 WBC 9.6 (4.5-11.0) X10^3/uL RBC 4.56 (4.5-5.9) X10^6/uL Hgb 13.3 L (13.5-17.5) g/dL Hct 40.0 L (41-53) % MCV 87.8 (80-100) fL MCH 29.1 (26-34) PG MCHC 33.2 (30-36) % RDW 13.8 (11.6-14.8) % Plt Count 299 (150-400) X10^3/uL Neut % (Auto) 63.8 (50-75) % Lymph % (Auto) 16.2 L (25-40) % Keith % (Auto) 14.0 (3-14) % Eos % (Auto) 4.8 H (2-4) % Baso % (Auto) 1.2 (0-2) % Neut # (Auto) 6100 (7770-0521) /uL Lymph # (Auto) 1600 (1731-6470) /uL Keith # (Auto) 1300 H (0-900) /uL Eos # (Auto) 500 H (0-450) /uL Baso # (Auto) 100 (0-100) /uL PT 10.8 (10.1-12.7) SECONDS INR 0.9 (0.9-1.3) APTT 29 (26-36) SECONDS Sodium 135 L (137-145) mmol/L Potassium 4.7 (3.4-5.1) mmol/L Chloride 103 (98-107) mmol/L Carbon Dioxide 16 L (22-32) mmol/L BUN 29 H (9-20) mg/dL Creatinine 2.92 H (0.66-1.25) mg/dL Estimated GFR 22 L (>60) mL/min BUN/Creatinine Ratio 9.9 (6-22) Glucose 79 L (80-110) mg/dL Calcium 9.5 (8.4-10.2) mg/dL Magnesium (1.6-2.3) mg/dL Total Bilirubin 1.2 (0.2-1.3) mg/dL AST 25 (17-59) IU/L ALT 19 (<50) IU/L Alkaline Phosphatase 164 H (38-126) U/L Total Creatine Kinase 68 (55-170) U/L CK-MB (CK-2) TNP CK-MB (CK-2) Rel Index TNP Troponin I 0.023 (0.01-0.034) ng/mL NT-Pro-B Natriuret Pep 4460 H (<450) pg/mL Total Protein 8.0 (6.3-8.2) g/dL Albumin 4.4 (3.5-5.0) g/dL Globulin 3.6 (1.7-4.1) g/dL Albumin/Globulin Ratio 1.2 (1.0-2.8) SARS-CoV-2 (PCR) (Negative) 02/02/22 02/02/22 02/02/22 Range/Units 03:20 06:55 06:55 WBC (4.5-11.0) X10^3/uL RBC (4.5-5.9) X10^6/uL Hgb (13.5-17.5) g/dL Hct (41-53) % MCV (80-100) fL MCH (26-34) PG MCHC (30-36) % RDW (11.6-14.8) % Plt Count (150-400) X10^3/uL Neut % (Auto) (50-75) % Lymph % (Auto) (25-40) % Keith % (Auto) (3-14) % Eos % (Auto) (2-4) % Baso % (Auto) (0-2) % Neut # (Auto) (5169-6426) /uL Lymph # (Auto) (5453-5519) /uL Keith # (Auto) (0-900) /uL Eos # (Auto) (0-450) /uL Baso # (Auto) (0-100) /uL PT (10.1-12.7) SECONDS INR (0.9-1.3) APTT (26-36) SECONDS Sodium (137-145) mmol/L Potassium (3.4-5.1) mmol/L Chloride (98-107) mmol/L Carbon Dioxide (22-32) mmol/L BUN (9-20) mg/dL Creatinine (0.66-1.25) mg/dL Estimated GFR (>60) mL/min BUN/Creatinine Ratio (6-22) Glucose (80-110) mg/dL Calcium (8.4-10.2) mg/dL Magnesium 1.8 (1.6-2.3) mg/dL Total Bilirubin (0.2-1.3) mg/dL AST (17-59) IU/L ALT (<50) IU/L Alkaline Phosphatase (38-126) U/L Total Creatine Kinase 52 L (55-170) U/L CK-MB (CK-2) TNP CK-MB (CK-2) Rel Index TNP Troponin I 0.059 H (0.01-0.034) ng/mL NT-Pro-B Natriuret Pep Cancelled (<450) pg/mL Total Protein (6.3-8.2) g/dL Albumin (3.5-5.0) g/dL Globulin (1.7-4.1) g/dL Albumin/Globulin Ratio (1.0-2.8) SARS-CoV-2 (PCR) (Negative) 02/02/22 02/02/22 Range/Units 08:16 10:02 WBC (4.5-11.0) X10^3/uL RBC (4.5-5.9) X10^6/uL Hgb (13.5-17.5) g/dL Hct (41-53) % MCV (80-100) fL MCH (26-34) PG MCHC (30-36) % RDW (11.6-14.8) % Plt Count (150-400) X10^3/uL Neut % (Auto) (50-75) % Lymph % (Auto) (25-40) % Keith % (Auto) (3-14) % Eos % (Auto) (2-4) % Baso % (Auto) (0-2) % Neut # (Auto) (5041-7587) /uL Lymph # (Auto) (0630-9556) /uL Keith # (Auto) (0-900) /uL Eos # (Auto) (0-450) /uL Baso # (Auto) (0-100) /uL PT (10.1-12.7) SECONDS INR (0.9-1.3) APTT (26-36) SECONDS Sodium (137-145) mmol/L Potassium (3.4-5.1) mmol/L Chloride (98-107) mmol/L Carbon Dioxide (22-32) mmol/L BUN (9-20) mg/dL Creatinine (0.66-1.25) mg/dL Estimated GFR (>60) mL/min BUN/Creatinine Ratio (6-22) Glucose (80-110) mg/dL Calcium (8.4-10.2) mg/dL Magnesium (1.6-2.3) mg/dL Total Bilirubin (0.2-1.3) mg/dL AST (17-59) IU/L ALT (<50) IU/L Alkaline Phosphatase (38-126) U/L Total Creatine Kinase (55-170) U/L CK-MB (CK-2) CK-MB (CK-2) Rel Index Troponin I 0.061 H (0.01-0.034) ng/mL NT-Pro-B Natriuret Pep (<450) pg/mL Total Protein (6.3-8.2) g/dL Albumin (3.5-5.0) g/dL Globulin (1.7-4.1) g/dL Albumin/Globulin Ratio (1.0-2.8) SARS-CoV-2 (PCR) Negative (Negative) Imaging Data Chest x-ray: Radiologist's Impression: [address] [address] XRay Report Signed Patient: Ulisses Anderson MR#: [id number] : 1945 Acct:[id number] Age/Sex: 77 / M Date of Service: 02/02/22 Loc: ED Accession Number: [id number] ?? Procedure: XR chest 1V Ordering Provider: Jordan Steele MD PROCEDURE:? XR CHEST 1V ? INDICATIONS:? chest pain ? TECHNIQUE:? One view of the chest was acquired.? ? COMPARISON:? [facility], CR, XR CHEST 2V, 03/02/2020, 11:16.? [facility], CR, XR CHEST 1V, 09/14/2021, 17:33. ? FINDINGS:? ? Surgical changes and devices:? None.? ? Lungs and pleura:? Lungs are clear.? No pleural effusions or pneumothorax.? ? Mediastinum:? Mediastinal contours appear normal.? Heart size is normal.? ? Bones and chest wall:? No suspicious bony lesions.? Overlying soft tissues appear unremarkable.? ? IMPRESSION:? No acute cardiopulmonary disease. ? ? Dictated by: Noemi Sherwood M.D. on 02/02/2022 at 8:47 ? ? Approved by: Noemi Sherwood M.D. on 02/02/2022 at 8:48?? ECG Data Interpretation: 1st EKG on arrival Rate 78, atrial fibrillation no ST elevation or depression. 2nd EKG at 4:00 a.m.. Normal sinus rhythm rate [address] elevation or de pression. Without additional medication EKG 3. Shows sinus rhythm rate of 64, MD 176 QRS 100 and QTC of 453. No acute ST changes appreciated. EKG appears similar to prior from 0400. MDM Narrative Medical decision making narrative: 02/02/2022 Mank: This is 77-year-old male seen and evaluated independently by myself after being signed out by Dr. Steele who states he had chest pain that started abrupt onset when he started having AFib RVR this was documented with EMS in the field. Received diltiazem and route. Patient has a history of atrial fibrillation eyes aspirin 81 mg daily. He states after he received med ication here and he converted to sinus rhythm which was diltiazem IV his chest pain resolved. He felt a little dizzy, he get a did get a little diaphoretic. He denies any shortness of breath. Denies increased swelling of his extremities. He has had cardiac stents, he had a Watchman device placed at in the past 1-2 years, he has not had prior ablation. He has not echo from 2019 which showed an EF of 20% and severe global hypokinesis none more recent available. Patient's initial troponin was negative but elevated repeat troponin is now indeterminate, BNP is 4460, has chronic kidney disease creatinine is 2.92 has been as high as 2.98 in the past but typically runs 2.7 range. No major electrolyte abnormalities. Patient repeat EKG does not show any acute changes he still in sinus rhythm, discussed with cardiology recommend repeat troponin is stable or trending down words likely demand ischemia and can discharge home. Patient if trending upwards plan for observation and echo. Godfrey martin's troponin is 0.061 and is not significantly raised. Patient prefers to return home at this time. Discussed with patient plan for for follow-up with Cardiology. Unclear if he is taking metoprolol 100 mg b.i.d. so was given a prescription to fill the pharmacy he does not read so discussed he can take his medications to the pharmacy and they can compare them and let them know if he is on the appropriate dose or needs to be altered. Discharge Plan Departure Patient Disposition: Home Clinical Impression: Atrial fibrillation with RVR, Chest pain Instructions: DI for Atrial Fibrillation Activity Restrictions/Additional Instructions: Please follow up with cardiology. Your heart on her last echo from 2019 shows it does not squeeze well and your higher risk to have complications or issues. Please continue home medications as prescribed. Talk with your physician or Dr. Danielle from her cardiology team about whether you should be on a stronger blood thinner for your aspirin. Continue your current medications as prescribed. Please ask your family or pharmacist to check your prescription for metoprolol and make sure you are taking 100 mg twice daily. A prescription was sent to [facility] in case you have the wrong dose. Please return for recurrent fast heartbeat, chest pain, shortness of breath, lightheadedness or passing out or other new or concerning symptoms. Prescriptions: New metoprolol succinate 100 mg capsule,gayle,ER 24hr 100 mg PO BID Qty: 120 0RF No Action ascorbic acid (vitamin C) 500 mg Tablet 1,000 mg PO DAILY omeprazole 20 mg Capsule,Delayed Release(Dr/Ec) 20 mg PO DAILY atorvastatin 40 mg tablet 40 mg PO DAILY Qty: 30 0RF aspirin 81 mg tablet,delayed release (DR/EC) 81 mg PO DAILY Qty: 30 0RF ferrous sulfate 325 mg (65 mg iron) Tablet 325 mg PO BID cholecalciferol (vitamin D3) [Vitamin D3] 50 mcg (2,000 unit) capsule 2,000 unit PO DAILY Label Comments: TAKE 1 TABLET BY MOUTH DAILY albuterol sulfate [Ventolin HFA] 90 mcg/actuation HFA aerosol inhaler 2 inh INHALATION TID PRN (Reason: Wheezing) furosemide 40 mg Tablet 40 mg PO DAILY Qty: 30 0RF metoprolol succinate 50 mg tablet extended release 24 hr 100 mg PO BID Qty: 120 0RF Referrals: Venus Gallo MD [Primary Care Provider] - Mary Danielle MD [Physician] - Visit Report Forms: Patient Portal/API
[2022-02-02 03:45] LABS: Add Manual Diff / Slide Review NO; Basophils Absolute Auto 100 /uL (0-100); Basophils Percent Auto 1.2 % (0-2); Eosinophils Absolute Auto 500 /uL (0-450); Eosinophils Percent Auto 4.8 % (2-4); Hemoglobin 13.3 g/dL (13.5-17.5); Lymphocytes Absolute Auto 1600 /uL (1100-4500); Lymphocytes Percent Auto 16.2 % (25-40); Mean Corpuscular HGB Conc 33.2 % (30-36); Mean Corpuscular Hemoglobin 29.1 PG (26-34); Mean Corpuscular Volume 87.8 fL (80-100); Monocytes Absolute Auto 1300 /uL (0-900); Neutrophils Absolute Auto 6100 /uL (1500-7000); Neutrophils Percent Auto 63.8 % (50-75); Platelet Count 299 X10^3/uL (150-400); Red Blood Cell Count 4.56 X10^6/uL (4.5-5.9); Red Cell Distribution Width 13.8 % (11.6-14.8); White Blood Cell Count 9.6 X10^3/uL (4.5-11.0)
[2022-02-02 03:52] LABS: INR 0.9 (0.9-1.3); Prothrombin Time 10.8 SECONDS (10.1-12.7)
[2022-02-02 03:54] LABS: PTT Partial Thromboplastin Tim 29 SECONDS (26-36)
[2022-02-02 03:55] LABS: Alanine Aminotransferase 19 IU/L (<50); Albumin 4.4 g/dL (3.5-5.0); Albumin Globulin Ratio 1.2 (1.0-2.8); Alkaline Phosphatase 164 U/L (38-126); Aspartate Aminotransferase 25 IU/L (17-59); BUN Creatinine Ratio 9.9 (6-22); Bilirubin Total 1.2 mg/dL (0.2-1.3); Blood Urea Nitrogen 29 mg/dL (9-20); Calcium 9.5 mg/dL (8.4-10.2); Carbon Dioxide 16 mmol/L (22-32); Chloride 103 mmol/L (98-107); Creatine Kinase 68 U/L (55-170); Estimated Glomerular Filt Rate 22 mL/min (>60); Globulin 3.6 g/dL (1.7-4.1); Glucose 79 mg/dL (80-110); HEMOLYSIS < 15 (0-50); Potassium 4.7 mmol/L (3.4-5.1); Sodium 135 mmol/L (137-145)
[2022-02-02 04:07] LABS: NT-proBNP (BNP-Adult 18+) 4460 pg/mL (<450); Troponin I 0.023 ng/mL (0.01-0.034)
[2022-02-02 07:12] LABS: Creatine Kinase 52 U/L (55-170)
[2022-02-02 07:25] LABS: Troponin I 0.059 ng/mL (0.01-0.034)
[2022-02-02 08:48] LABS: COVID19 -Nasal RAPID Negative (Negative)
[2022-02-02 09:27] LABS: Magnesium 1.8 mg/dL (1.6-2.3)
[2022-02-02] MEDS: ASPIRIN 81 MG CHEW TAB 324 MG PO (09:59)
[2022-02-02 11:15] LABS: Troponin I 0.061 ng/mL (0.01-0.034)
== END 2022-02-02 12:37 | disposition home or self-care (01) ==
PROVIDERS: Emergency Medicine; Emergency Provider Emergency Medicine; PCP Family Medicine
DX: I48.20 Chronic atrial fibrillation, unspecified (principal); R07.9 Chest pain, unspecified; Z79.899 Other long term (current) drug therapy; I25.2 Old myocardial infarction; Z20.822 Contact with and (suspected) exposure to COVID-19
CPT/HCPCS: 36415; 71045; 80053; 82550; 83735; 83880; 84484; 85025; 85610; 85730; 87635; 93005; 93010; 99284; C9803

== ENCOUNTER → 2022-04-05 14:36 | Outpatient (CLI) | payer MEDICARE, MEDICAID, OTHER, SELFPAY ==
[2020-01-12 13:32] VITALS: BMI 23.8
[2022-04-05 15:05] LABS: Hematocrit 37.9 % (41-53); Hemoglobin 12.3 g/dL (13.5-17.5)
[2022-04-05 16:20] LABS: BUN Creatinine Ratio 10.2 (6-22); Blood Urea Nitrogen 31 mg/dL (9-20); Calcium 9.4 mg/dL (8.4-10.2); Carbon Dioxide 29 mmol/L (22-32); Chloride 99 mmol/L (98-107); Estimated Glomerular Filt Rate 20 mL/min (>60); Glucose 86 mg/dL (80-110); HEMOLYSIS < 15 (0-50); Potassium 4.7 mmol/L (3.4-5.1); Sodium 138 mmol/L (137-145)
[2022-04-07 10:18] LABS: Parathyroid Hormone Int 78 pg/mL (15-65)
== END ==
PROVIDERS: PCP Family Medicine; Referring Provider Student in an Organized Health Care Education/Training Program; Visit Provider Student in an Organized Health Care Education/Training Program
DX: D64.9 Anemia, unspecified (principal); N05.9 Unspecified nephritic syndrome with unspecified morphologic changes; N25.81 Secondary hyperparathyroidism of renal origin; R80.9 Proteinuria, unspecified
CPT/HCPCS: 36415; 80048; 83970; 85014; 85018

== ENCOUNTER → 2022-04-11 11:47 | Outpatient (CLI) | payer MEDICARE, MEDICAID, OTHER, SELFPAY ==
[2020-01-12 13:32] VITALS: BMI 23.8
--- NOTE | 2022-04-11 | DI.US.S_ITS ---
PROCEDURE: US RENAL COMPLETE INDICATIONS: Personal history of urinary calculi TECHNIQUE: Real-time scanning was performed of the kidneys and bladder, with image documentation. COMPARISON: [facility], , RENAL COMPLETE, 12/22/2013, 10:53. FINDINGS: Kidneys: Kidneys are normal in size. Right kidney measures 8.3 cm long; left kidney measures 8.4 cm long. Right renal cortical thickness is 1.2 cm; left renal cortical thickness is 1.4 cm. Renal cortical echotexture is normal. No hydronephrosis. Small nonobstructing right kidney stone measuring 0.7 cm. Small nonobstructing left kidney stones measuring 1.1 cm and 2 cm. No suspicious solid mass lesions. Bladder: Bladder is not distended. Ureteral jets are not seen. Miscellaneous: No free pelvic fluid. IMPRESSION: No hydronephrosis. Small bilateral kidney stones. CT KUB could be considered for further evaluation. Dictated by: Cyrus Feliz M.D. on 04/11/2022 at 13:49 Approved by: Cyrus Feliz M.D. on 04/11/2022 at 14:25
== END ==
PROVIDERS: PCP Family Medicine; Referring Provider Student in an Organized Health Care Education/Training Program; Visit Provider Student in an Organized Health Care Education/Training Program
DX: N20.0 Calculus of kidney (principal); Z87.442 Personal history of urinary calculi
CPT/HCPCS: 76770

== ENCOUNTER → 2022-05-10 11:08 | Outpatient (CLI) | payer MEDICARE, MEDICAID, OTHER, SELFPAY ==
[2020-01-12 13:32] VITALS: BMI 23.8
[2022-05-10 13:39] LABS: BUN Creatinine Ratio 6.6 (6-22); Blood Urea Nitrogen 19 mg/dL (9-20); Calcium 8.6 mg/dL (8.4-10.2); Carbon Dioxide 26 mmol/L (22-32); Chloride 100 mmol/L (98-107); Estimated Glomerular Filt Rate 22 mL/min (>60); Glucose 93 mg/dL (80-110); HEMOLYSIS < 15 (0-50); Potassium 4.7 mmol/L (3.4-5.1); Sodium 137 mmol/L (137-145)
[2022-05-10 16:25] LABS: Creatinine Urine Random 93.6 mg/dL; Protein (Total) Urine Random 191 mg/dL (0-12); Protein Creatinine Ratio Urine 2.04 GRAM/24H
== END ==
PROVIDERS: PCP Family Medicine; Referring Provider Student in an Organized Health Care Education/Training Program; Visit Provider Student in an Organized Health Care Education/Training Program
DX: N05.9 Unspecified nephritic syndrome with unspecified morphologic changes (principal); R80.9 Proteinuria, unspecified
CPT/HCPCS: 36415; 80048; 82570; 84156

== ENCOUNTER 2022-07-28 09:55 | Emergency (ER) | payer MEDICARE, MEDICAID, OTHER, SELFPAY ==
[2020-01-12 13:32] VITALS: BMI 23.8
[2022-07-28] VITALS (16 sets, daily range): BP systolic 117–142; BP diastolic 72–99; PULSE 82–125; RESP 10–23; TEMP 36.4; O2SAT 82–100; BMI 24.3
--- NOTE | 2022-07-28 10:01 | DI.RAD.S_ITS ---
PROCEDURE: XR CHEST 1V INDICATIONS: Shortness of breath TECHNIQUE: One view of the chest was acquired. COMPARISON: [facility], CR, XR CHEST 1V, 02/02/2022, 3:47. FINDINGS: Surgical changes and devices: None. Lungs and pleura: Lungs are clear. No pleural effusions or pneumothorax. Mediastinum: Mediastinal contours appear normal. Heart size is enlarged. Bones and chest wall: No suspicious bony lesions. Overlying soft tissues appear unremarkable. IMPRESSION: No acute cardiopulmonary abnormality. Dictated by: Trey Irby M.D. on 07/28/2022 at 10:38 Approved by: Trey Irby M.D. on 07/28/2022 at 10:39
[2022-07-28 10:17] LABS: Add Manual Diff / Slide Review NO; Basophils Absolute Auto 100 /uL (0-100); Eosinophils Absolute Auto 600 /uL (0-450); Eosinophils Percent Auto 6.5 % (2-4); Hematocrit 35.3 % (41-53); Hemoglobin 11.9 g/dL (13.5-17.5); Lymphocytes Absolute Auto 1300 /uL (1100-4500); Lymphocytes Percent Auto 14.1 % (25-40); Mean Corpuscular HGB Conc 33.6 % (30-36); Mean Corpuscular Hemoglobin 28.1 PG (26-34); Mean Corpuscular Volume 83.7 fL (80-100); Monocytes Absolute Auto 1400 /uL (0-900); Monocytes Percent Auto 15.4 % (3-14); Neutrophils Absolute Auto 5600 /uL (1500-7000); Platelet Count 236 X10^3/uL (150-400); Red Blood Cell Count 4.22 X10^6/uL (4.5-5.9); Red Cell Distribution Width 13.5 % (11.6-14.8); White Blood Cell Count 8.9 X10^3/uL (4.5-11.0)
[2022-07-28 10:19] LABS: Prothrombin Time 11.3 SECONDS (10.1-12.7)
[2022-07-28 10:24] LABS: Alanine Aminotransferase 14 IU/L (<50); Albumin 4.2 g/dL (3.5-5.0); Albumin Globulin Ratio 1.3 (1.0-2.8); Alkaline Phosphatase 118 U/L (38-126); Aspartate Aminotransferase 24 IU/L (17-59); BUN Creatinine Ratio 8.3 (6-22); Bilirubin Total 0.5 mg/dL (0.2-1.3); Blood Urea Nitrogen 26 mg/dL (9-20); Calcium 8.5 mg/dL (8.4-10.2); Carbon Dioxide 23 mmol/L (22-32); Chloride 97 mmol/L (98-107); Estimated Glomerular Filt Rate 20 mL/min (>60); Globulin 3.3 g/dL (1.7-4.1); Glucose 76 mg/dL (80-110); HEMOLYSIS < 15 (0-50); Lactate (Lactic Acid) 1.1 mmol/L (0.7-2.1); Sodium 131 mmol/L (137-145); Total Protein 7.5 g/dL (6.3-8.2)
[2022-07-28 10:36] LABS: NT-proBNP (BNP-Adult 18+) 7190 pg/mL (<450); Troponin I 0.015 ng/mL (0.01-0.034)
[2022-07-28 10:39] LABS: COVID19 -Nasal RAPID Negative (Negative)
--- NOTE | 2022-07-28 12:00 | ED.SOB ---
HPI - SOB/Dyspnea General Chief Complaint: Shortness of Breath/Dyspnea Stated Complaint: SOB, tongue numbness Time Seen by Provider: 07/28/22 11:52 Source: patient, EMS, RN notes reviewed and old records reviewed Mode of arrival: EMS Limitations: no limitations History of Present Illness HPI Narrative: This is a 77-year-old male with atrial fibrillation, history of prior stroke, dyslipidemia on aspirin 81 mg daily, chronic kidney disease and regular alcohol use. Patient states he shortness of breath off and on longstanding but this morning woke up he was trying to sleep and could not breathe. Patient states he called the medics he did not have any chest pain or pressure, he has not appreciate any lightheadedness or passing out, he had some mild nausea teens vomit x1. He denies any diaphoresis. No diarrhea, constipation, no black or bloody stools. No dysuria urgency or frequency. He notes some orthopnea he does have 2 normally sleep upright. Patient states there was some tingling of his tongue for a couple seconds that resolved. EMS arrived they gave him nitro sublingual x1 which did not improve symptoms. He was noted to be in AFib with a heart rate of 130s slowed with EMS but was still receive 5 mg of Cardizem his heart rate was around 100 and then slowed 86 in atrial fibrillation. Patient states he is feeling improved at this time. He states aspirin certainly blood thinner, he takes medication for cholesterol, his atrial fibrillation. He notes he had a prior stroke that affected his equilibrium. He is had cardiac stents x4, Watchman a year ago denies any prior cardiac pacemaker, defibrillator or ablation. Quit smoking 14 years ago, he did have at least 3 beers possibly more he did not count yesterday and is feeling hung over today. He states he goes out to drink 2 times weekly states he never counts his alcoholic drinks but definitely drinks more than 3 each time. Occasional THC no other illicit. His primary care is Dr. Gallo through the clinic, rocked Dr. Danielle for his account resolution specialist and he follows with [facility]. Related Data Home Medications Medication Instructions Recorded Confirmed ascorbic acid (vitamin C) 500 mg 1,000 mg PO DAILY 11/25/18 01/12/20 tablet omeprazole 20 mg capsule,delayed 20 mg PO DAILY 11/25/18 01/12/20 release albuterol sulfate 90 mcg/actuation 2 inh inhalation TID PRN Wheezing 01/12/20 01/12/20 aerosol inhaler (Ventolin HFA) cholecalciferol (vitamin D3) 50 2,000 unit PO DAILY 01/12/20 01/12/20 mcg (2,000 unit) capsule (Vitamin D3) ferrous sulfate 325 mg (65 mg 325 mg PO BID 01/12/20 01/12/20 iron) tablet Previous Rx's Medication Instructions Recorded aspirin 81 mg tablet,delayed 81 mg PO DAILY #30 tabs 11/25/18 release atorvastatin 40 mg tablet 40 mg PO DAILY #30 tabs 11/25/18 furosemide 40 mg tablet 40 mg PO DAILY #30 tabs 01/13/20 metoprolol succinate 50 mg 100 mg PO BID #120 tabs 01/13/20 tablet,extended release 24 hr metoprolol succinate 100 mg 100 mg PO BID #120 ea 02/02/22 capsule sprinkle, ext. release 24 hr furosemide 40 mg tablet (Lasix) 40 mg PO BID #10 tabs 07/28/22 Allergies Allergy/AdvReac Type Severity Reaction Status Date / Time lisinopril [LISINOPRIL] Allergy Unknown Verified 01/12/20 11:04 Review of Systems Review of Systems ROS Unobtainable: All systems reviewed & are unremarkable except as noted in HPI and below Patient History Medical History (Updated 07/28/22 @ 12:54 by Liliana Amaya DO) Anemia Atrial fibrillation Congestive heart failure Ethmoid sinusitis History of myocardial infarction Surgical History History of coronary artery stent placement Social History household members: family Smoking Status: Former smoker alcohol intake: current substance use type: does not use and marijuana Smoking Status: Former smoker alcohol intake frequency: 3 or more drinks per day Substance Use Type: marijuana Exam Narrative Exam Narrative: GENERAL: Alert and oriented x three, male in mild distress. HEENT: Head normocephalic, atraumatic, EOMI, pupils reactive, face symmetric, moist mucous membranes NECK: Supple, full range of motion CARDIOVASCULAR: Irregularly irregular rate and rhythm without murmurs, rubs or gallops. Mild JVD. No swelling bilateral lower extremities. No swelling bilateral lower extremities. RESPIRATORY: Breath sounds equal bilaterally, no wheezes rales or rhonchi. ABDOMEN: Soft, nontender. Normoactive bowel sounds all 4 quadrants. No guarding or rebound, rigidity, no mass : No CVA tenderness EXTREMITIES: Normal range of motion, no clubbing or edema. Neurovascularly intact NEUROLOGICAL: Cranial nerves II through XII grossly intact. Moving all extremities SKIN: Warm, dry, no petechiae, no rashes or lesions. Initial Vital Signs Initial Vital Signs: Vital Signs Temperature 97.6 F 07/28/22 09:58 Pulse Rate 97 H 07/28/22 09:58 Respiratory Rate 20 07/28/22 09:58 Blood Pressure 117/82 07/28/22 09:58 Pulse Oximetry 99 07/28/22 09:58 Oxygen Delivery Method Room Air 07/28/22 09:58 Course Orders Ordered: ED Orders 07/28/22 10:00 Complete Blood Count AUTO DIFF Stat Comprehensive Metabolic Panel Stat Lactate (Lactic Acid) Stat NT-proBNP (BNP-Adult 18+) Stat Prothrombin Time INR Stat Troponin I Stat EKG-12 Lead Stat 07/28/22 10:01 XR chest 1V Stat EKG-12 Lead Stat Measure peak expiratory flow ONCE RT Consult Eval and Treat NOW 07/28/22 10:03 COVID19 -Nasal RAPID Stat 07/28/22 12:13 Trop I [Troponin I] Stat 07/28/22 12:25 EKG-12 Lead Stat 07/28/22 13:22 CT chest wo con Stat Discontinued Medications Aspirin (Aspirin 81 Mg Chew Tab) 324 mg PO NOW ONE Stop: 07/28/22 12:42 Last Admin: 07/28/22 13:06 Dose: 324 mg Documented By: CTS Furosemide (Furosemide 40 Mg/4 Ml Vial) 40 mg IV NOW ONE Stop: 07/28/22 12:42 Last Admin: 07/28/22 13:06 Dose: 40 mg Documented By: CTS Metoprolol Tartrate (Metoprolol Ir 25 Mg Tablet) 100 mg PO NOW ONE Stop: 07/28/22 12:42 Last Admin: 07/28/22 13:06 Dose: 100 mg Documented By: CTS Vital Signs Vital signs: Vital Signs - 8 hr 07/28/22 13:16 07/28/22 11:00 07/28/22 11:00 Pulse Rate 93 H 94 H Respiratory Rate 23 13 Blood Pressure 133/84 Pulse Oximetry 82 L 97 07/28/22 11:30 07/28/22 11:30 07/28/22 12:00 Pulse Rate 90 Respiratory Rate 15 Blood Pressure 131/72 140/96 H Pulse Oximetry 97 07/28/22 12:00 07/28/22 12:30 07/28/22 12:30 Pulse Rate 88 103 H Respiratory Rate 12 13 Blood Pressure 141/99 H Pulse Oximetry 99 99 07/28/22 13:00 07/28/22 13:00 07/28/22 13:16 Pulse Rate 103 H Respiratory Rate 15 Blood Pressure 138/76 142/89 H Pulse Oximetry 98 07/28/22 13:16 07/28/22 13:30 07/28/22 14:01 Pulse Rate 125 H 114 H 101 H Respiratory Rate 18 16 10 L Blood Pressure Pulse Oximetry 100 98 90 L 07/28/22 14:30 07/28/22 15:00 07/28/22 15:30 Pulse Rate 89 103 H 98 H Respiratory Rate 17 18 17 Blood Pressure Pulse Oximetry 98 100 97 MDM - SOB/Dyspnea Lab Data 07/28/22 10:00 07/28/22 10:00 Labs: Lab Results 07/28/22 07/28/22 07/28/22 Range/Units 10:00 10:00 10:00 WBC 8.9 (4.5-11.0) X10^3/uL RBC 4.22 L (4.5-5.9) X10^6/uL Hgb 11.9 L (13.5-17.5) g/dL Hct 35.3 L (41-53) % MCV 83.7 (80-100) fL MCH 28.1 (26-34) PG MCHC 33.6 (30-36) % RDW 13.5 (11.6-14.8) % Plt Count 236 (150-400) X10^3/uL Neut % (Auto) 63.0 (50-75) % Lymph % (Auto) 14.1 L (25-40) % [place] % (Auto) 15.4 H (3-14) % Eos % (Auto) 6.5 H (2-4) % Baso % (Auto) 1.0 (0-2) % Neut # (Auto) 5600 (0153-6827) /uL Lymph # (Auto) 1300 (2577-2196) /uL [place] # (Auto) 1400 H (0-900) /uL Eos # (Auto) 600 H (0-450) /uL Baso # (Auto) 100 (0-100) /uL PT 11.3 (10.1-12.7) SECONDS INR 1.0 (0.9-1.3) Sodium 131 L (137-145) mmol/L Potassium 4.0 (3.4-5.1) mmol/L Chloride 97 L (98-107) mmol/L Carbon Dioxide 23 (22-32) mmol/L BUN 26 H (9-20) mg/dL Creatinine 3.13 H (0.66-1.25) mg/dL Estimated GFR 20 L (>60) mL/min BUN/Creatinine Ratio 8.3 (6-22) Glucose 76 L (80-110) mg/dL Lactate (0.7-2.1) mmol/L Calcium 8.5 (8.4-10.2) mg/dL Total Bilirubin 0.5 (0.2-1.3) mg/dL AST 24 (17-59) IU/L ALT 14 (<50) IU/L Alkaline Phosphatase 118 (38-126) U/L Troponin I 0.015 (0.01-0.034) ng/mL NT-Pro-B Natriuret Pep 7190 H (<450) pg/mL Total Protein 7.5 (6.3-8.2) g/dL Albumin 4.2 (3.5-5.0) g/dL Globulin 3.3 (1.7-4.1) g/dL Albumin/Globulin Ratio 1.3 (1.0-2.8) SARS-CoV-2 (PCR) (Negative) 07/28/22 07/28/22 07/28/22 Range/Units 10:00 10:03 12:13 WBC (4.5-11.0) X10^3/uL RBC (4.5-5.9) X10^6/uL Hgb (13.5-17.5) g/dL Hct (41-53) % MCV (80-100) fL MCH (26-34) PG MCHC (30-36) % RDW (11.6-14.8) % Plt Count (150-400) X10^3/uL Neut % (Auto) (50-75) % Lymph % (Auto) (25-40) % [place] % (Auto) (3-14) % Eos % (Auto) (2-4) % Baso % (Auto) (0-2) % Neut # (Auto) (9934-3753) /uL Lymph # (Auto) (9481-7174) /uL [place] # (Auto) (0-900) /uL Eos # (Auto) (0-450) /uL Baso # (Auto) (0-100) /uL PT (10.1-12.7) SECONDS INR (0.9-1.3) Sodium (137-145) mmol/L Potassium (3.4-5.1) mmol/L Chloride (98-107) mmol/L Carbon Dioxide (22-32) mmol/L BUN (9-20) mg/dL Creatinine (0.66-1.25) mg/dL Estimated GFR (>60) mL/min BUN/Creatinine Ratio (6-22) Glucose (80-110) mg/dL Lactate 1.1 (0.7-2.1) mmol/L Calcium (8.4-10.2) mg/dL Total Bilirubin (0.2-1.3) mg/dL AST (17-59) IU/L ALT (<50) IU/L Alkaline Phosphatase (38-126) U/L Troponin I < 0.012 (0.01-0.034) ng/mL NT-Pro-B Natriuret Pep (<450) pg/mL Total Protein (6.3-8.2) g/dL Albumin (3.5-5.0) g/dL Globulin (1.7-4.1) g/dL Albumin/Globulin Ratio (1.0-2.8) SARS-CoV-2 (PCR) Negative (Negative) Imaging Data Chest x-ray: Radiologist's Impression: [address] [address] XRay Report Signed Patient: Ulisses Anderson MR#: [id number] : 1945 Acct:[id number] Age/Sex: 77 / M Date of Service: 07/28/22 Loc: ED Accession Number: [id number] ?? Procedure: XR chest 1V Ordering Provider: Liliana Amaya D.O. PROCEDURE:? XR CHEST 1V ? INDICATIONS:? Shortness of breath ? TECHNIQUE:? One view of the chest was acquired.? ? COMPARISON:? [facility], XR CHEST 1V, 02/02/2022, 3:47. ? FINDINGS:? ? Surgical changes and devices:? None.? ? Lungs and pleura:? Lungs are clear.? No pleural effusions or pneumothorax.? ? Mediastinum:? Mediastinal contours appear normal.? Heart size is enlarged. ? Bones and chest wall:? No suspicious bony lesions.? Overlying soft tissues appear unremarkable.? ? IMPRESSION:? No acute cardiopulmonary abnormality. ? ? Dictated by: Trey Irby M.D. on 07/28/2022 at 10:38 ? ? Approved by: Trey Irby M.D. on 07/28/2022 at 10:3 CT scan - chest: Radiologist's Impression: Close Chest CT (Signed) Paulo Davison - 07/28/22 Chest X-Ray (Signed) Trey Irby - 07/28/22 Launch?[place] [address] CT Scan Report Signed Patient: Ulisses Anderson MR#: [id number] : 1945 Acct:[id number] Age/Sex: 77 / M Date of Service: 07/28/22 Loc: ED Accession Number: [id number] ?? Procedure: CT chest wo con Ordering Provider: Liliana Amaya D.O. PROCEDURE:? CT CHEST WO CON ? INDICATIONS:? sob ? TECHNIQUE: Noncontrast 5 mm thick sections acquired from the pulmonary apices to the posterior costophrenic angles.? 1 mm lung window, 5 mm thick coronal and sagittal and 7 mm axial MIP reformats were then acquired.? For radiation dose reduction, the following was used:? automated exposure control, adjustment of mA and/or kV according to patient size.? ? COMPARISON:? [facility], XR CHEST 1V, 07/28/2022, 10:10. ? FINDINGS: ? Image quality:? Excellent.? ? Lungs and pleura:? Upper lobe predominant pulmonary emphysematous changes.? Mild diffuse ground-glass opacities of the bilateral lung bases with dependent atelectasis and smooth septal thickening that is also lower lung predominant.? Minimal perihilar airway airway thickening.? No suspicious pulmonary nodules.? No suspicious pulmonary masses.? No septal nodularity.? No pneumothorax.? No substantial pleural effusion.? ? Central and peripheral airways are patent and normal in caliber.? ? ? Mediastinum:? Cardiomegaly.? Dense atherosclerotic calcifications of the coronary arteries.? No pericardial effusion.? No mediastinal adenopathy by size criteria.? Ectasia of the ascending thoracic aorta measuring 4 cm in size. Esophagus is normal in caliber.? Small hiatal hernia.? ? ? Bones and chest wall:? No suspicious bony lesions.? No vertebral body compression fractures.? No axillary or supraclavicular adenopathy by size criteria.? Thyroid gland is unremarkable .? ? Abdomen:? Partially imaged left kidney with possible nonobstructing renal stones.? Remainder of the visualized upper abdominal solid organs and bowel loops appear unremarkable.? IMPRESSION:? 1. Cardiomegaly with findings consistent with pulmonary edema.? Concurrent infectious or inflammatory process not completely excluded if clinically appropriate. ? 2. Moderate atherosclerotic vascular disease. ? 3. Upper lobe predominant pulmonary emphysema. ? 4. Suspected nonobstructing left renal stones. ? 5. Small hiatal hernia.? Dictated by: Paulo Davison M.D. on 07/28/2022 at 14:50 ? ? Approved by: Paulo Davison M.D. on 07/28/2022 at 14:56?? ECG Data Attestation: I personally reviewed and interpreted this ECG as follows: Prior ECG tracings: available for review Interpretation: Atrial fibrillation rate 88 QRS [address] QTC [address] No acute ST elevation or depression noted. Patient has prior from 02/02/2022 with no acute or dynamic changes. EKG 1. Shows AFib with RVR, rate of 108, QRS of [address] No acute [address] elevation or depression noted. No dynamic changes noted. [facility] Narrative Medical decision making narrative: This is a 77-year-old male with known atrial fibrillation who was in AFib RVR with EMS his heart rate has improved sometimes elevated above 100 but consistently in the 80s to 70s. Patient notes he did not take his regular medication this morning he did not have metoprolol or his aspirin. He notes when he drinks he does not typically take his medication the next day. He is not fully anticoagulated beyond 81 mg aspirin for his atrial fibrillation he had shortness of breath which has since improved. He did have a dose of nitro sublingual prior to arrival he does have a headache after this. Patient states he normally takes aspirin for his headache so will give him a full-dose aspirin, his regular metoprolol and does appear to be somewhat fluid overloaded with his BNP so a dose Lasix, patient's creatinine 3.13 today appears to range 2.8 to 3.05, CMP shows very mild anemia, no leukocytosis normal platelets electrolytes are otherwise appropriate. Lactate 1.1 with negative LFTs and negative troponin initially. Repeat troponin is negative. BNP is elevated at 7190, most recent was 4400 in January of 2022. Suspect patient has a component of AFib RVR with CHF. Chest x-ray is negative with no clear signs of pulmonary edema. He is not normally on any diuretics. Also contributing is twice weekly alcohol use typically more than 3 beers he had some last night did not have his medications and developed some AFib RVR on top of this. Spoke with Dr. Zhang, hospitalist would like to get CT chest without contrast to get a little bit more detail of his chest consultation with Cardiology. We reviewed all of his findings today. Spoke with Dr. Humphrey, cardiology covering for patient's account resolution specialist agrees with heart failure management, echo does not feel patient needs transfer at this time. Patient ambulated again after Lasix and his O2 sat was in the mid 90s. Nursing and use an alternative probe and thinks that the initial 1 May have been inaccurate. Patient still states he feels okay and feels much improved from earlier. He would like to return home and not be admitted. Plan for short course of diuretic, strict return precautions. We did review his CT chest does show some pulmonary edema consistent with CHF and that his heart does not work well so he needs to take his medications regularly. I had also re-contacted the hospitalist who agrees with current plan. Discharge Plan Departure Patient Disposition: Home Clinical Impression: CHF (congestive heart failure), Atrial fibrillation with rapid ventricular response Instructions: DI for Heart Failure Activity Restrictions/Additional Instructions: Please follow-up with your physician and/or account resolution specialist for recheck. Please call for an appointment. Please make sure you are taking your medications daily think this will help your symptoms. You have been given a short course of diuretic, take this once daily until gone. You do need to be rechecked in the next week to make sure no changes have occurred with your renal function. Prescription sent to [facility]. Please return for new or worsening chest pain, shortness of breath, lightheadedness, passing out, increasing swelling in your extremities or other new or concerning changes. Prescriptions: New furosemide [Lasix] 40 mg tablet 40 mg PO BID Qty: 10 0RF No Action ascorbic acid (vitamin C) 500 mg Tablet 1,000 mg PO DAILY omeprazole 20 mg Capsule,Delayed Release(Dr/Ec) 20 mg PO DAILY atorvastatin 40 mg tablet 40 mg PO DAILY Qty: 30 0RF aspirin 81 mg tablet,delayed release (DR/EC) 81 mg PO DAILY Qty: 30 0RF ferrous sulfate 325 mg (65 mg iron) Tablet 325 mg PO BID cholecalciferol (vitamin D3) [Vitamin D3] 50 mcg (2,000 unit) capsule 2,000 unit PO DAILY Patient Comments: TAKE 1 TABLET BY MOUTH DAILY albuterol sulfate [Ventolin HFA] 90 mcg/actuation HFA aerosol inhaler 2 inh INHALATION TID PRN (Reason: Wheezing) furosemide 40 mg Tablet 40 mg PO DAILY Qty: 30 0RF metoprolol succinate 50 mg tablet extended release 24 hr 100 mg PO BID Qty: 120 0RF metoprolol succinate 100 mg capsule,sprinkle,ER 24hr 100 mg PO BID Qty: 120 0RF Referrals: Venus Gallo MD [Primary Care Provider] - Stand Alone Forms: Patient Portal/API
[2022-07-28 12:55] LABS: Troponin I < 0.012 ng/mL (0.01-0.034)
[2022-07-28] MEDS: FUROSEMIDE 40 MG/4 ML VIAL IV (13:06)
[2022-07-28] MEDS: ASPIRIN 81 MG CHEW TAB 324 MG PO (13:06)
[2022-07-28] MEDS: METOPROLOL IR 25 MG TABLET 100 MG PO (13:06)
--- NOTE | 2022-07-28 13:17 | PC.NURSE ---
Pt OOB to BR. Ambulation assessment on RA appears to be 82%. Pt reports SOB and has some pursed lip breathing. HR upon arrival back to bed 122 afib. After resting pt SPO2 99%
--- NOTE | 2022-07-28 13:22 | DI.CT.S_ITS ---
PROCEDURE: CT CHEST WO CON INDICATIONS: sob TECHNIQUE: Noncontrast 5 mm thick sections acquired from the pulmonary apices to the posterior costophrenic angles. 1 mm lung window, 5 mm thick coronal and sagittal and 7 mm axial MIP reformats were then acquired. For radiation dose reduction, the following was used: automated exposure control, adjustment of mA and/or kV according to patient size. COMPARISON: [facility], CR, XR CHEST 1V, 07/28/2022, 10:10. FINDINGS: Image quality: Excellent. Lungs and pleura: Upper lobe predominant pulmonary emphysematous changes. Mild diffuse ground-glass opacities of the bilateral lung bases with dependent atelectasis and smooth septal thickening that is also lower lung predominant. Minimal perihilar airway airway thickening. No suspicious pulmonary nodules. No suspicious pulmonary masses. No septal nodularity. No pneumothorax. No substantial pleural effusion. Central and peripheral airways are patent and normal in caliber. Mediastinum: Cardiomegaly. Dense atherosclerotic calcifications of the coronary arteries. No pericardial effusion. No mediastinal adenopathy by size criteria. Ectasia of the ascending thoracic aorta measuring 4 cm in size. Esophagus is normal in caliber. Small hiatal hernia. Bones and chest wall: No suspicious bony lesions. No vertebral body compression fractures. No axillary or supraclavicular adenopathy by size criteria. Thyroid gland is unremarkable . Abdomen: Partially imaged left kidney with possible nonobstructing renal stones. Remainder of the visualized upper abdominal solid organs and bowel loops appear unremarkable. IMPRESSION: 1. Cardiomegaly with findings consistent with pulmonary edema. Concurrent infectious or inflammatory process not completely excluded if clinically appropriate. 2. Moderate atherosclerotic vascular disease. 3. Upper lobe predominant pulmonary emphysema. 4. Suspected nonobstructing left renal stones. 5. Small hiatal hernia. Dictated by: Paulo Davison M.D. on 07/28/2022 at 14:50 Approved by: Paulo Davison M.D. on 07/28/2022 at 14:56
--- NOTE | 2022-07-28 14:58 | PC.NURSE ---
ambulation trial, tolerated well. Sats remained 98%, respiratory effort increases. Some mild purse lip breathing. Dr Amaya aware.
== END 2022-07-28 15:37 | disposition home or self-care (01) ==
PROVIDERS: Emergency Provider Emergency Medicine; PCP Family Medicine
DX: I50.9 Heart failure, unspecified (principal); I48.20 Chronic atrial fibrillation, unspecified; Z79.82 Long term (current) use of aspirin; Z20.822 Contact with and (suspected) exposure to COVID-19
CPT/HCPCS: 36415; 71045; 71250; 80053; 83605; 83880; 84484; 85025; 85610; 87635; 93005; 96374; 99284; C9803; J1940

== ENCOUNTER → 2022-08-24 12:08 | Outpatient (CLI) | payer MEDICARE, OTHER, SELFPAY ==
[2020-01-12 13:32] VITALS: BMI 23.8
[2022-08-24 13:23] LABS: Hematocrit 35.4 % (41-53); Hemoglobin 11.6 g/dL (13.5-17.5)
[2022-08-24 13:49] LABS: BUN Creatinine Ratio 8.6 (6-22); Blood Urea Nitrogen 24 mg/dL (9-20); Calcium 9.1 mg/dL (8.4-10.2); Carbon Dioxide 21 mmol/L (22-32); Chloride 100 mmol/L (98-107); Estimated Glomerular Filt Rate 23 mL/min (>60); Glucose 135 mg/dL (80-110); HEMOLYSIS < 15 (0-50); Potassium 4.6 mmol/L (3.4-5.1); Sodium 133 mmol/L (137-145)
[2022-08-26 07:15] LABS: Parathyroid Hormone Int 94 pg/mL (15-65)
== END ==
PROVIDERS: PCP Family Medicine; Referring Provider Student in an Organized Health Care Education/Training Program; Visit Provider Student in an Organized Health Care Education/Training Program
DX: N05.9 Unspecified nephritic syndrome with unspecified morphologic changes (principal); D64.9 Anemia, unspecified; N25.81 Secondary hyperparathyroidism of renal origin; R80.9 Proteinuria, unspecified
CPT/HCPCS: 36415; 80048; 83970; 85014; 85018

== ENCOUNTER 2022-10-12 14:21 | Observation (INO) | payer MEDICARE, OTHER, SELFPAY ==
[2020-01-12 13:32] VITALS: BMI 23.8
[2022-10-12] VITALS (10 sets, daily range): BP systolic 111–130; BP diastolic 79–94; PULSE 109–125; RESP 15–34; TEMP 36–36.1; O2SAT 98–100; BMI 24.0
--- NOTE | 2022-10-12 14:39 | DI.RAD.S_ITS ---
PROCEDURE: XR CHEST 1V INDICATIONS: chest pain TECHNIQUE: One view of the chest was acquired. COMPARISON: [facility], CR, XR CHEST 1V, 07/28/2022, 10:10. FINDINGS: Surgical changes and devices: None. Lungs and pleura: Lungs are clear. No pleural effusions or pneumothorax. Mediastinum: Mediastinal contours appear normal. Cardiomegaly. Bones and chest wall: No suspicious bony lesions. Overlying soft tissues appear unremarkable. IMPRESSION: Cardiomegaly. No evidence acute pulmonary process. Dictated by: Arnaldo Beatty M.D. on 10/12/2022 at 16:19 Approved by: Arnaldo Beatty M.D. on 10/12/2022 at 16:19
[2022-10-12 15:03] LABS: Add Manual Diff / Slide Review NO; Basophils Absolute Auto 100 /uL (0-100); Basophils Percent Auto 1.5 % (0-2); Eosinophils Absolute Auto 100 /uL (0-450); Eosinophils Percent Auto 1.9 % (2-4); Hematocrit 37.9 % (41-53); Hemoglobin 12.4 g/dL (13.5-17.5); Lymphocytes Absolute Auto 900 /uL (1100-4500); Lymphocytes Percent Auto 12.2 % (25-40); Mean Corpuscular HGB Conc 32.6 % (30-36); Mean Corpuscular Hemoglobin 26.7 PG (26-34); Mean Corpuscular Volume 81.9 fL (80-100); Monocytes Absolute Auto 1700 /uL (0-900); Neutrophils Absolute Auto 4600 /uL (1500-7000); Neutrophils Percent Auto 61.4 % (50-75); Platelet Count 192 X10^3/uL (150-400); Red Blood Cell Count 4.62 X10^6/uL (4.5-5.9); Red Cell Distribution Width 15.9 % (11.6-14.8); White Blood Cell Count 7.4 X10^3/uL (4.5-11.0)
[2022-10-12 15:04] LABS: INR 1.4 (0.9-1.3); Prothrombin Time 16.2 SECONDS (10.1-12.7)
[2022-10-12 15:06] LABS: PTT Partial Thromboplastin Tim 29 SECONDS (26-36)
[2022-10-12 15:07] LABS: Alanine Aminotransferase 121 IU/L (<50); Albumin 4.1 g/dL (3.5-5.0); Albumin Globulin Ratio 1.2 (1.0-2.8); Alkaline Phosphatase 178 U/L (38-126); Aspartate Aminotransferase 214 IU/L (17-59); BUN Creatinine Ratio 10.3 (6-22); Bilirubin Total 2.1 mg/dL (0.2-1.3); Blood Urea Nitrogen 41 mg/dL (9-20); Calcium 9.2 mg/dL (8.4-10.2); Carbon Dioxide 19 mmol/L (22-32); Chloride 98 mmol/L (98-107); Creatine Kinase 267 U/L (55-170); Estimated Glomerular Filt Rate 15 mL/min (>60); Globulin 3.3 g/dL (1.7-4.1); Glucose 124 mg/dL (80-110); HEMOLYSIS < 15 (0-50); Lipase 117 U/L (23-300); Potassium 4.8 mmol/L (3.4-5.1); Sodium 132 mmol/L (137-145); Total Protein 7.4 g/dL (6.3-8.2)
[2022-10-12 15:18] LABS: Troponin I 0.024 ng/mL (0.01-0.034)
[2022-10-12 16:26] LABS: NT-proBNP (BNP-Adult 18+) 79700 pg/mL (<450)
--- NOTE | 2022-10-12 18:19 | ED_ITS ---
HPI - SOB/Dyspnea General Chief Complaint: Shortness of Breath/Dyspnea Stated Complaint: Body weakness Time Seen by Provider: 10/12/22 16:00 Source: patient Mode of arrival: Ambulatory Limitations: no limitations History of Present Illness HPI Narrative: Patient 77-year-old male history of atrial fibrillation, prior stroke, dyslipidemia, on aspirin 81 mg daily chronic kidney disease regular alcohol use,Watchman procedure, CAD with stents presents today with increasing shortness of breath. History is somewhat to get but it sounds like he went out drinking a week ago he had a hangover the following day and does not feel like he is quite recovered. His reports that he is having increasing shortness of breath with exertion. He denies any orthopnea. He has no chest pain. Feels a bit nauseated was having some abdominal cramping no vomiting. He is a loss of appetite but still able to drink fluids. No fever or chills. He is followed by Dr. Danielle for Cardiology clinical educator who he does not know the name of and Dr. Meza PCP. Related Data Home Medications Medication Instructions Recorded Confirmed omeprazole 20 mg capsule,delayed 20 mg PO DAILY 11/25/18 10/12/22 release Previous Rx's Medication Instructions Recorded aspirin 81 mg tablet,delayed 81 mg PO DAILY #30 tabs 11/25/18 release furosemide 40 mg tablet 40 mg PO DAILY #30 tabs 01/13/20 Allergies Allergy/AdvReac Type Severity Reaction Status Date / Time lisinopril [LISINOPRIL] Allergy Unknown Verified 10/12/22 14:37 Review of Systems Review of Systems ROS Unobtainable: All systems reviewed & are unremarkable except as noted in HPI and below Patient History Medical History (Updated 10/12/22 @ 21:24 by Amira Govea DO) Anemia Atrial fibrillation Congestive heart failure Ethmoid sinusitis History of myocardial infarction Surgical History History of coronary artery stent placement Social History household members: family Smoking Status: Former smoker alcohol intake: current substance use type: does not use and marijuana Smoking Status: Former smoker alcohol intake frequency: 3 or more drinks per day Substance Use Type: marijuana Exam Initial Vital Signs Initial Vital Signs: Vital Signs Temperature 96.8 F L 10/12/22 14:30 Pulse Rate 122 H 10/12/22 14:30 Respiratory Rate 22 10/12/22 14:30 Blood Pressure 128/89 10/12/22 14:30 Pulse Oximetry 100 10/12/22 14:30 Oxygen Delivery Method Room Air 10/12/22 14:30 GENERAL: Alert pleasant 77-year-old male and in no acute distress. HEENT: Head atraumatic,EOMI, pupils reactive, face symmetric, moist mucous membranes CARDIOVASCULAR: Irregularly irregular RESPIRATORY: Breath sounds equal bilaterally, no wheezes rales or rhonchi. ABDOMEN: Soft, nontender. Normoactive bowel sounds all 4 quadrants. No guarding or rebound. EXTREMITIES: Normal range of motion, no clubbing or edema. Neurovascularly intact NEUROLOGICAL: Alert and oriented x4. SKIN: Warm, dry, no laceration, no petechiae, no rashes or lesions. Course Orders Ordered: ED Orders 10/12/22 14:39 XR chest 1V Stat EKG-12 Lead Stat 10/12/22 14:46 BNP [NT-proBNP (BNP-Adult 18+)] Stat Complete Blood Count AUTO DIFF Stat Comprehensive Metabolic Panel Stat Lactate (Lactic Acid) Stat Lipase Stat Magnesium Stat PTT Partial Thromboplastin Martin Stat Procalcitonin Stat Prothrombin Time INR Stat Troponin & CK Cardiac Panel Stat 10/12/22 18:22 US abdomen complete Stat Heparin Sodium (Porcine) (Heparin 5,000 Unit/Ml Vial) 5,000 unit SUBCUT BID BALJIT Naloxone HCl (Naloxone 0.4 Mg/Ml Vial) 0.2 mg IV Q2MIN PRN PRN Reason: Opiate Reversal Ondansetron HCl (Ondansetron 4 Mg/2 Ml Inj) 4 mg IV Q8HR PRN PRN Reason: Nausea And Vomiting Ondansetron HCl (Ondansetron 4 Mg Odt) 4 mg PO Q8HR PRN PRN Reason: Nausea And Vomiting Discontinued Medications Acetaminophen (Acetaminophen 325 Mg Tablet) 975 mg PO NOW ONE Stop: 10/12/22 20:19 Last Admin: 10/12/22 20:26 Dose: 975 mg Documented By: AMAN Acetaminophen (Acetaminophen 325 Mg Tablet) 650 mg PO Q6H PRN PRN Reason: Fever/Mild Pain (1-3) Aspirin (Aspirin 81 Mg Chew Tab) 324 mg PO NOW ONE Stop: 10/12/22 14:39 Last Admin: 10/12/22 22:27 Dose: Not Given Documented By: FELICITY Furosemide (Furosemide 40 Mg/4 Ml Vial) 40 mg IV NOW ONE Stop: 10/12/22 19:20 Last Admin: 10/12/22 19:26 Dose: 40 mg Documented By: RAH Vital Signs Vital signs: Vital Signs - 8 hr 10/12/22 19:20 10/12/22 19:30 10/12/22 19:30 Pulse Rate 120 H 116 H Respiratory Rate 28 H 30 H Blood Pressure 120/84 111/79 Pulse Oximetry 99 99 10/12/22 20:00 10/12/22 20:30 10/12/22 20:30 Pulse Rate 120 H 125 H Respiratory Rate 24 15 Blood Pressure 121/93 H Pulse Oximetry 99 100 10/12/22 21:00 10/12/22 21:00 Pulse Rate 109 H Respiratory Rate 27 H Blood Pressure 127/83 Pulse Oximetry 98 MDM - SOB/Dyspnea Lab Data 10/12/22 14:46 10/12/22 14:46 Labs: Lab Results 10/12/22 10/12/22 10/12/22 Range/Units 14:46 14:46 14:46 WBC 7.4 (4.5-11.0) X10^3/uL RBC 4.62 (4.5-5.9) X10^6/uL Hgb 12.4 L (13.5-17.5) g/dL Hct 37.9 L (41-53) % MCV 81.9 (80-100) fL MCH 26.7 (26-34) PG MCHC 32.6 (30-36) % RDW 15.9 H (11.6-14.8) % Plt Count 192 (150-400) X10^3/uL Neut % (Auto) 61.4 (50-75) % Lymph % (Auto) 12.2 L (25-40) % [place] % (Auto) 23.0 H (3-14) % Eos % (Auto) 1.9 L (2-4) % Baso % (Auto) 1.5 (0-2) % Neut # (Auto) 4600 (1379-0585) /uL Lymph # (Auto) 900 L (8372-1505) /uL [place] # (Auto) 1700 H (0-900) /uL Eos # (Auto) 100 (0-450) /uL Baso # (Auto) 100 (0-100) /uL PT 16.2 H (10.1-12.7) SECONDS INR 1.4 H (0.9-1.3) APTT 29 (26-36) SECONDS Sodium 132 L (137-145) mmol/L Potassium 4.8 (3.4-5.1) mmol/L Chloride 98 (98-107) mmol/L Carbon Dioxide 19 L (22-32) mmol/L BUN 41 H (9-20) mg/dL Creatinine 3.99 H (0.66-1.25) mg/dL Estimated GFR 15 L (>60) mL/min BUN/Creatinine Ratio 10.3 (6-22) Glucose 124 H (80-110) mg/dL Lactate (0.7-2.1) mmol/L Calcium 9.2 (8.4-10.2) mg/dL Magnesium 2.0 (1.6-2.3) mg/dL Total Bilirubin 2.1 H (0.2-1.3) mg/dL AST 214 H (17-59) IU/L ALT 121 H (<50) IU/L Alkaline Phosphatase 178 H (38-126) U/L Total Creatine Kinase 267 H (55-170) U/L Troponin I 0.024 (0.01-0.034) ng/mL NT-Pro-B Natriuret Pep (<450) pg/mL Total Protein 7.4 (6.3-8.2) g/dL Albumin 4.1 (3.5-5.0) g/dL Globulin 3.3 (1.7-4.1) g/dL Albumin/Globulin Ratio 1.2 (1.0-2.8) Lipase 117 (23-300) U/L Procalcitonin (<0.5) ng/mL 10/12/22 10/12/22 10/12/22 Range/Units 14:46 14:46 14:46 WBC (4.5-11.0) X10^3/uL RBC (4.5-5.9) X10^6/uL Hgb (13.5-17.5) g/dL Hct (41-53) % MCV (80-100) fL MCH (26-34) PG MCHC (30-36) % RDW (11.6-14.8) % Plt Count (150-400) X10^3/uL Neut % (Auto) (50-75) % Lymph % (Auto) (25-40) % [place] % (Auto) (3-14) % Eos % (Auto) (2-4) % Baso % (Auto) (0-2) % Neut # (Auto) (2065-7205) /uL Lymph # (Auto) (3910-9348) /uL [place] # (Auto) (0-900) /uL Eos # (Auto) (0-450) /uL Baso # (Auto) (0-100) /uL PT (10.1-12.7) SECONDS INR (0.9-1.3) APTT (26-36) SECONDS Sodium (137-145) mmol/L Potassium (3.4-5.1) mmol/L Chloride (98-107) mmol/L Carbon Dioxide (22-32) mmol/L BUN (9-20) mg/dL Creatinine (0.66-1.25) mg/dL Estimated GFR (>60) mL/min BUN/Creatinine Ratio (6-22) Glucose (80-110) mg/dL Lactate 2.3 H (0.7-2.1) mmol/L Calcium (8.4-10.2) mg/dL Magnesium (1.6-2.3) mg/dL Total Bilirubin (0.2-1.3) mg/dL AST (17-59) IU/L ALT (<50) IU/L Alkaline Phosphatase (38-126) U/L Total Creatine Kinase (55-170) U/L Troponin I (0.01-0.034) ng/mL NT-Pro-B Natriuret Pep 94908 H (<450) pg/mL Total Protein (6.3-8.2) g/dL Albumin (3.5-5.0) g/dL Globulin (1.7-4.1) g/dL Albumin/Globulin Ratio (1.0-2.8) Lipase (23-300) U/L Procalcitonin 0.18 (<0.5) ng/mL Imaging Data Chest x-ray: Radiologist's Impression: PROCEDURE:? XR CHEST 1V ? INDICATIONS:? chest pain ? TECHNIQUE:? One view of the chest was acquired.? ? COMPARISON:? [facility], CR, XR CHEST 1V, 07/28/2022, 10:10. ? FINDINGS:? ? Surgical changes and devices:? None.? ? Lungs and pleura:? Lungs are clear.? No pleural effusions or pneumothorax.? ? Mediastinum:? Mediastinal contours appear normal.? Cardiomegaly. ? Bones and chest wall:? No suspicious bony lesions.? Overlying soft tissues appear unremarkable.? ? IMPRESSION:? Cardiomegaly. No evidence acute pulmonary process. ? ? ? Dictated by: Arnaldo Beatty M.D. on 10/12/2022 at 16:19 ? ? Approved by: Arnaldo Beatty M.D. on 10/12/2022 at 16:19 ? US - abdomen: Radiologist's Impression: PROCEDURE:? US ABDOMEN COMPLETE ? INDICATIONS:? ELEVATED LIVER ENZYMES ? TECHNIQUE:? Real-time scanning was performed of the abdominal and retroperitoneal organs, with image documentation.? ? COMPARISON:? [facility], US, US RENAL COMPLETE, 04/11/2022, 12:07. ? FINDINGS:? ? Liver:? Liver is normal in size at 14.5 cm.? Mildly coarsened liver echotexture is noted. ?Questionable nodularity of the liver surface. ? Gallbladder:? The gallbladder appears normal without gallstones.? Mild diffuse gallbladder wall thickening.? Trace pericholecystic fluid in the presence of right upper quadrant ascites.? Sonographic Song sign is negative. ? Biliary ducts:? Intrahepatic bile ducts are non-dilated.? Extrahepatic bile duct caliber measures 4.2 mm.? Normal is 6-7 mm or less in diameter, or 10 mm or less post-cholecystectomy.? ? Pancreas:? Visualized portions of the pancreas are sonographically normal.? ? Spleen:? Spleen is normal in size and homogeneous in echotexture.? ? Kidneys:? Kidneys are normal in size and echotexture.? Right kidney measures 7.4 cm long; left kidney measures 8.4 cm long.? A nonobstructing right renal calculus is seen measuring up to 0.6 cm.? No hydronephrosis or nephrolithiasis.? No solid masses.? ? Aorta:? Visualized aorta is normal in caliber at less than 3 cm.? ? Iliacs:? Proximal common iliac arteries are normal in caliber at less than 2.5 cm.? ? IVC:? Intrahepatic inferior vena cava is patent.? ? Miscellaneous:? Trace right upper quadrant ascites.? ? ? IMPRESSION:? 1. Coarsened hepatic echotexture with suspected subtle nodular liver surface.? Findings are suspicious for possible cirrhosis and clinical correlation is recommended. 2. Mild thickening gallbladder wall is nonspecific and may be related to liver disease.? No gallstones.? Sonographic Song sign is negative. 3. Trace right upper quadrant ascites. 4. Nonobstructing right renal calculus. ? Approved by: Reji Glover M.D. on 10/12/2022 at 19:19? ECG Data Interpretation: Atrial fibrillation rate [address] changes MDM Narrative Medical decision making narrative: Patient is a 77-year-old with multiple comorbidities including atrial fibrillation with Watchman on aspirin coronary artery disease alcoholism presenting today with increasing shortness of breath with exertion. He is not hypoxic or having obvious conversational dyspnea while speaking to him. However he does have cardiomegaly on his x-ray no obvious crackles on exam BNP is greater than 79,000. He is worsening acute on chronic kidney disease. Baseline creatinine is 2.7 today is 3.9. He is followed by nephrology he is not sure who it is. He is given 40 mg of Lasix to help with congestive heart failure he is only urinated once. Attempted ambulation after the at he quickly became very dyspneic O2 at 85% and took awhile to recover. I called and spoke with Cardiology who stated that he had not seen them or followed up in at least 2 years. He did have an echocardiogram in 2020 which showed an EF of 35-40%. 2129 Dr. Alas, able to look it results. States he has not really been seen since 2020 gave me his last echo from 2020 with an EF of 25-40%. Strongly encouraged follow-up. Other blood work does show elevated bilirubin liver enzymes and alk-phos. Abdominal ultrasound shows cirrhosis likely secondary to alcoholism but no evidence of cholelithiasis or cholecystitis. Kidney do not show any significant abnormality either. Patient's vitals are stable as long as he does not ambulate Dr Wu, on-call hospitalist updated patient's symptoms test results accepts patient. Discharge Plan Departure Patient Disposition: Admitted as Observation Clinical Impression: CHF (congestive heart failure), Atrial fibrillation Admit Date/Time: 10/12/22 21:24 Admit Provider: Fabien Sullivan
--- NOTE | 2022-10-12 18:22 | DI.US.S_ITS ---
PROCEDURE: US ABDOMEN COMPLETE INDICATIONS: ELEVATED LIVER ENZYMES TECHNIQUE: Real-time scanning was performed of the abdominal and retroperitoneal organs, with image documentation. COMPARISON: , US, US RENAL COMPLETE, 04/11/2022, 12:07. FINDINGS: Liver: Liver is normal in size at 14.5 cm. Mildly coarsened liver echotexture is noted. Questionable nodularity of the liver surface. Gallbladder: The gallbladder appears normal without gallstones. Mild diffuse gallbladder wall thickening. Trace pericholecystic fluid in the presence of right upper quadrant ascites. Sonographic Song sign is negative. Biliary ducts: Intrahepatic bile ducts are non-dilated. Extrahepatic bile duct caliber measures 4.2 mm. Normal is 6-7 mm or less in diameter, or 10 mm or less post-cholecystectomy. Pancreas: Visualized portions of the pancreas are sonographically normal. Spleen: Spleen is normal in size and homogeneous in echotexture. Kidneys: Kidneys are normal in size and echotexture. Right kidney measures 7.4 cm long; left kidney measures 8.4 cm long. A nonobstructing right renal calculus is seen measuring up to 0.6 cm. No hydronephrosis or nephrolithiasis. No solid masses. Aorta: Visualized aorta is normal in caliber at less than 3 cm. Iliacs: Proximal common iliac arteries are normal in caliber at less than 2.5 cm. IVC: Intrahepatic inferior vena cava is patent. Miscellaneous: Trace right upper quadrant ascites. IMPRESSION: 1. Coarsened hepatic echotexture with suspected subtle nodular liver surface. Findings are suspicious for possible cirrhosis and clinical correlation is recommended. 2. Mild thickening gallbladder wall is nonspecific and may be related to liver disease. No gallstones. Sonographic Song sign is negative. 3. Trace right upper quadrant ascites. 4. Nonobstructing right renal calculus. Approved by: Reji Glover M.D. on 10/12/2022 at 19:19
[2022-10-12 18:48] LABS: Lactate (Lactic Acid) 2.3 mmol/L (0.7-2.1)
[2022-10-12 19:05] LABS: Procalcitonin 0.18 ng/mL (<0.5)
[2022-10-12] MEDS: FUROSEMIDE 40 MG/4 ML VIAL IV (19:26)
[2022-10-12] MEDS: ACETAMINOPHEN 325 MG TABLET 975 MG PO (20:26)
[2022-10-12 20:33] LABS: Reflexed Lactate in 2 Hours Y
[2022-10-12 21:49] LABS: Lactate 2HR (Lactic Acid Rflx) 1.7 mmol/L (0.7-2.1)
--- NOTE | 2022-10-12 23:21 | P.HP_ITS ---
History of Present Illness History of Present Illness Date Patient Seen: 10/12/22 Chief complaint: BODY WEAK, HASNT EATEN MUCH - AFTER WEEKEND DRINKI Narrative: 77 y/o with PMH of ischemic cardyomyopathy and A-fib, last seen by cardiology 2 years ago, on ASA and prn Lasix, history of CKD stage 4, alcoholism, presented to ED weak, with exertional dyspnea, desaturating in 80-ies in ED while not on home oxygen. His symptoms started several days ago after he was drinking. ED w/o revealed rapid A-fib, stable BP, cardiomegaly and elevated BNP but absence of pulmonary edema. [facility] Medical History (Updated 10/13/22 @ 00:01 by Fabien Sullivan MD) Anemia Atrial fibrillation Congestive heart failure Ethmoid sinusitis History of myocardial infarction Surgical History (Updated 10/12/22 @ 23:59 by Fabien Sullivan MD) History of coronary artery stent placement Social History household members: family Smoking Status: Former smoker alcohol intake: current substance use type: does not use and marijuana Meds Home Medications and Allergies Home Medications Medication Instructions Recorded Confirmed Type aspirin 81 mg tablet,delayed 81 mg PO DAILY #30 tabs 11/25/18 10/12/22 Rx release omeprazole 20 mg capsule,delayed 20 mg PO DAILY 11/25/18 10/12/22 History release furosemide 40 mg tablet 40 mg PO DAILY #30 tabs 01/13/20 10/12/22 Rx Allergies Allergy/AdvReac Type Severity Reaction Status Date / Time lisinopril [LISINOPRIL] Allergy Unknown Verified 10/12/22 14:37 Review of Systems Constitutional Comments: progressive generalized weakness Cardiovascular Comments: w/o chest pain Respiratory Comments: short of breath Gastrointestinal Comments: decreased appetite Exam Vital Signs (past 8 hours): - 10/12/22 19:20 10/12/22 19:30 10/12/22 19:30 Temperature Pulse Rate 120 H 116 H Respiratory Rate 28 H 30 H Blood Pressure 120/84 111/79 Pulse Oximetry 99 99 Oxygen Flow Rate 10/12/22 20:00 10/12/22 20:30 10/12/22 20:30 Temperature Pulse Rate 120 H 125 H Respiratory Rate 24 15 Blood Pressure 121/93 H Pulse Oximetry 99 100 Oxygen Flow Rate 10/12/22 21:00 10/12/22 21:00 10/12/22 21:30 Temperature Pulse Rate 109 H 113 H Respiratory Rate 27 H 31 H Blood Pressure 127/83 Pulse Oximetry 98 98 Oxygen Flow Rate 10/12/22 21:31 10/12/22 21:31 10/12/22 22:00 Temperature Pulse Rate 121 H 110 H Respiratory Rate 34 H 24 Blood Pressure 130/90 Pulse Oximetry 98 100 Oxygen Flow Rate 10/12/22 22:10 Temperature 97.0 F L Pulse Rate 118 H Respiratory Rate 18 Blood Pressure 117/94 H Pulse Oximetry 99 Oxygen Flow Rate 0 Oxygen Delivery Method Room Air Oxygen Flow Rate 0 Const Other: laying in bed in no distress Resp Other: CTA Cardio Other: irregular, tachycardic MED, apical Legs are not swollen Objective Labs 10/12/22 14:46 10/12/22 14:46 Labs: Laboratory Results - last 24 hr 10/12/22 10/12/22 10/12/22 14:46 14:46 14:46 WBC 7.4 RBC 4.62 Hgb 12.4 L Hct 37.9 L MCV 81.9 MCH 26.7 MCHC 32.6 RDW 15.9 H Plt Count 192 Neut % (Auto) 61.4 Lymph % (Auto) 12.2 L [place] % (Auto) 23.0 H Eos % (Auto) 1.9 L Baso % (Auto) 1.5 Neut # (Auto) 4600 Lymph # (Auto) 900 L [place] # (Auto) 1700 H Eos # (Auto) 100 Baso # (Auto) 100 PT 16.2 H INR 1.4 H APTT 29 Sodium 132 L Potassium 4.8 Chloride 98 Carbon Dioxide 19 L BUN 41 H Creatinine 3.99 H Estimated GFR 15 L BUN/Creatinine Ratio 10.3 Glucose 124 H Lactate Calcium 9.2 Magnesium 2.0 Total Bilirubin 2.1 H AST 214 H ALT 121 H Alkaline Phosphatase 178 H Total Creatine Kinase 267 H Troponin I 0.024 NT-Pro-B Natriuret Pep Total Protein 7.4 Albumin 4.1 Globulin 3.3 Albumin/Globulin Ratio 1.2 Lipase 117 Procalcitonin 10/12/22 10/12/22 10/12/22 14:46 14:46 14:46 WBC RBC Hgb Hct MCV MCH MCHC RDW Plt Count Neut % (Auto) Lymph % (Auto) [place] % (Auto) Eos % (Auto) Baso % (Auto) Neut # (Auto) Lymph # (Auto) [place] # (Auto) Eos # (Auto) Baso # (Auto) PT INR APTT Sodium Potassium Chloride Carbon Dioxide BUN Creatinine Estimated GFR BUN/Creatinine Ratio Glucose Lactate 2.3 H Calcium Magnesium Total Bilirubin AST ALT Alkaline Phosphatase Total Creatine Kinase Troponin I NT-Pro-B Natriuret Pep 38661 H Total Protein Albumin Globulin Albumin/Globulin Ratio Lipase Procalcitonin 0.18 10/12/22 21:30 WBC RBC Hgb Hct MCV MCH MCHC RDW Plt Count Neut % (Auto) Lymph % (Auto) [place] % (Auto) Eos % (Auto) Baso % (Auto) Neut # (Auto) Lymph # (Auto) [place] # (Auto) Eos # (Auto) Baso # (Auto) PT INR APTT Sodium Potassium Chloride Carbon Dioxide BUN Creatinine Estimated GFR BUN/Creatinine Ratio Glucose Lactate 1.7 Calcium Magnesium Total Bilirubin AST ALT Alkaline Phosphatase Total Creatine Kinase Troponin I NT-Pro-B Natriuret Pep Total Protein Albumin Globulin Albumin/Globulin Ratio Lipase Procalcitonin Assessment & Plan Assessment and plan (1) Atrial fibrillation with RVR: Status: Inactive (2) Acute on chronic systolic congestive heart failure, NYHA class 3: Status: Acute (3) Atrial fibrillation with rapid ventricular response: Status: Acute (4) Alcoholism: Status: Acute (5) Alcoholic cirrhosis of liver: Status: Acute (6) Acute hypoxemic respiratory failure: Status: Acute (7) History of coronary artery stent placement: Problem details: x 4 vessel Status: Acute (8) Ischemic cardiomyopathy: Status: Acute (9) GERD (gastroesophageal reflux disease): Status: Acute Plan 77 y/o with severe CHF, CKD, sichemic cardiomyopathy, alcoholic liver cirrhosis, ongoing alcohol abuse, admitted with decompenzated HF and CKD, rapid a-fib Assessment & Plan narrative: 1. A-fib with RVR - Hx of Watcman. Hx of recurrent falls, not anticoagulated, on ASA only - BB prn for rate control on telemetry, PO BALJIT BB - ASA - repeat echocardiogram - follow with cardiology 2. HFrEF / Ischemic Cardiomyopathy - s/p angioplasty - apparently not on statin, NTG, BB - no evidence of ACS - ASA, started BB - not a candidate for statin with elevated LFTs - Lasix - monitored BMP - with MR and rapid a-fib developed severe exertional dyspnea and desatuaration - rate control, wean off oxygen 3. CKD stage 4 - likely worsened today - monitored 4. Alcoholism / Alcoholic Liver Cirrhosis - LFTs up - INR 1.4, mildly coagulopathic - ammonia level pending 5. GERD - PPI Quality VTE Deep Vein Thrombosis/Pulmonary Embolism Present on Admission: No
--- NOTE | 2022-10-12 23:22 | PC.NURSE ---
Pt. admitted to room 208, oriented to his room, showed him his call light, TV & bed control. Pt. reported that he don't know how to read & write. Stated I been busy working, never finish school. Denies any fall @ home for the past 3 months. Call light with in reached & reminded not to get OOB without any assistance. Will continue plan of care & monitor.
--- NOTE | 2022-10-13 00:30 | DI.ECHO.S_ITS ---
[facility]---------+ [facility] +---------+ : : [address] : : : : [id number] : : : : Phone: [phone]+ Echocardiogram Report + + :Name: LUCRETIA JOHN Study Date: 10/13/2022 Height: 69 in : :[facility] ReadingLocation: Weight: 163 lb : : Gender: Male BSA: 1.9 m2 : :: 1945 Age: 77 yrs BP: 117/94 mmHg: :Reason For Study: Congestive Heart Failure : :Ordering Physician: MICHELLE, : :ELNIA Burger Performed By: Benita Cintron : :Referring: ELINA MARTINEZ : + + Interpretation Summary The patient was in atrial fibrillation with heart rates between 93-146 bpm during the exam. The ejection fraction is estimated to be 10-15%. The left ventricle is moderately dilated. There is severe global hypokinesis of the left ventricle. The right ventricle is mildly dilated. Right ventricular systolic function is moderate to severely reduced. The right ventricular systolic pressure is estimated to be at least 56 mmHg based on an estimated right atrial pressure of 15 mm Hg. There is severe mitral regurgitation. There is severe tricuspid regurgitation. The left atrium is moderately dilated. The right atrium is moderately dilated. Procedure: A two-dimensional transthoracic echocardiogram with color flow and Doppler was performed. The study quality was technically adequate. Comparison is made with the echocardiogram of 01/13/2020. The patient was in atrial fibrillation with heart rates between 93-146 bpm during the exam. Left Ventricle: The left ventricle is moderately dilated. The ejection fraction is estimated to be 10-15%. There is severe global hypokinesis of the left ventricle. Diastolic function could not be accurately assessed due to atrial fibrillation. Right Ventricle: The right ventricle is mildly dilated. Right ventricular systolic function is moderate to severely reduced. Atria: The left atrium is moderately dilated. The right atrium is moderately dilated. There is no Doppler evidence for an interatrial shunt. Mitral Valve: The mitral valve is normal. There is no mitral valve stenosis. There is severe mitral regurgitation. Aortic Valve: The aortic valve is trileaflet. There is mild aortic valve sclerosis. There is no aortic valve stenosis. There is trace aortic regurgitation. Tricuspid Valve: The tricuspid valve is normal. There is no tricuspid stenosis. There is severe tricuspid regurgitation. The right ventricular systolic pressure is estimated to be at least 56 mmHg based on an estimated right atrial pressure of 15 mm Hg. Pulmonic Valve: The pulmonic valve leaflets are thin and pliable; valve motion is normal. There is no pulmonic valvular stenosis. There is no pulmonic valvular regurgitation. Great Vessels: The aortic root is normal size. The ascending aorta is mildly enlarged. The pulmonary artery is normal size. The IVC is dilated (diameter is greater than 2.1 cm) and it collapses less than 50% with a sniff. This suggests a high right atrial pressure of 15 mm Hg. Pericardium/ Pleura There is no pericardial effusion. There is no pleural effusion. MMode/2D Measurements & Calculations LVIDd: 5.6 cm LVOT diam: 1.9 cm LVIDs: 5.9 cm Ao root diam: 3.0 cm FS: -5.4 % asc Aorta Diam: 3.9 cm IVSd: 1.0 cm LVPWd: 0.90 cm LV fitzpatrick. diameter/BSA (cm/m^2): 3.0 LV sys. diameter/BSA (cm/m^2): 3.1 LA A2 area: 25.4 cm2 RA long axis: 6.6 cm LA A4 area: 24.2 cm2 RA area: 25.5 cm2 LA length (vol): 6.7 cm RA vol: 84.7 ml LA vol: 77.8 ml RA : 44.7 ml/m2 LA vol index: 41.1 ml/m2 RVD1 (basal): 4.4 cm LVLs ap4: 7.5 cm LVLd ap2: 7.4 cm TAPSE_phl: 1.0 cm LVLs ap2: 7.2 cm Doppler Measurements & Calculations TR max eli: 320.0 cm/sec TR max P.0 mmHg Reading Physician:PM
[2022-10-13 05:02] VITALS: BP 117/86; PULSE 128; RESP 18; TEMP 35.6; O2SAT 99
[2022-10-13 05:17] LABS: Ammonia (NH3) < 9 umol/L (9-30)
[2022-10-13 05:18] LABS: Blood Urea Nitrogen 44 mg/dL (9-20); Calcium 8.9 mg/dL (8.4-10.2); Carbon Dioxide 19 mmol/L (22-32); Chloride 97 mmol/L (98-107); Estimated Glomerular Filt Rate 13 mL/min (>60); Glucose 93 mg/dL (80-110); HEMOLYSIS < 15 (0-50); Potassium 4.5 mmol/L (3.4-5.1); Sodium 130 mmol/L (137-145)
[2022-10-13] MEDS: PANTOPRAZOLE DR 20 MG TABLET PO (05:34)
[2022-10-13 06:46] VITALS: PULSE 95
[2022-10-13 08:00] VITALS: BP 113/88; PULSE 111; RESP 17; TEMP 36.1; O2SAT 94
[2022-10-13] MEDS: ASPIRIN EC 81 MG TABLET PO (08:28)
[2022-10-13] MEDS: FUROSEMIDE 40 MG TABLET PO (08:28)
[2022-10-13] MEDS: METOPROLOL IR 25 MG TABLET PO (08:28)
[2022-10-13] MEDS: SODIUM CHLORIDE 0.9% FLUSH 10 ML IV (08:29)
[2022-10-13] MEDS: HEPARIN 5,000 UNIT/ML VIAL 5000 UNIT SUBCUT (08:29)
--- NOTE | 2022-10-13 09:31 | P.DS_ITS ---
History of Present Illness History of Present Illness Date Patient Seen: 10/13/22 Time Patient Seen: 09:31 Date of Onset of Symptoms: 10/12/22 Chief complaint: BODY WEAK, HASNT EATEN MUCH - AFTER WEEKEND DRINKI Narrative: From H&P: 77 y/o with PMH of ischemic cardyomyopathy and A-fib, last seen by cardiology 2 years ago, on ASA and prn Lasix, history of CKD stage 4, alcoholism, presented to ED weak, with exertional dyspnea, desaturating in 80- ies in ED while not on home oxygen. His symptoms started several days ago after he was drinking. ED w/o revealed rapid A-fib, stable BP, cardiomegaly and elevated BNP but absence of pulmonary edema. Discharge Providers Provider Date of admission: 10/12/22 21:24 Discharge Date: 10/13/22 Primary care physician: Venus Gallo MD Consults: None Discharge provider: Justin Hall MD Summary Status at Discharge Cognitive/behavioral status at discharge: oriented Functional status at discharge: independent ambulation Overall status at discharge: patient is back to baseline Time Spent with Patient Time spent: Greater than 30 minutes Exam Vital Signs (past 8 hours): - 10/13/22 05:02 10/13/22 06:46 10/13/22 08:00 Temperature 96.0 F L 97.0 F L Pulse Rate 128 H 95 H 111 H Respiratory Rate 18 17 Blood Pressure 117/86 113/88 Pulse Oximetry 99 94 Oxygen Flow Rate 0 0 Oxygen Delivery Method Room Air Oxygen Flow Rate 0 Narrative Exam Narrative: NAD Lungs clear Heart regular Abdomen soft and non-tender No leg edema Normal speech. Objective Imaging Chest x-ray: Radiologist's impression: IMPRESSION:? Cardiomegaly. No evidence acute pulmonary process. US - abdomen: Radiologist's impression: 1. Coarsened hepatic echotexture with suspected subtle nodular liver surface.? F indings are suspicious for possible cirrhosis and clinical correlation is recommended. 2. Mild thickening gallbladder wall is nonspecific and may be related to liver disease.? No gallstones.? Sonographic Song sign is negative. 3. Trace right upper quadrant ascites. 4. Nonobstructing right renal calculus. Labs 10/12/22 14:46 10/13/22 04:56 Labs: Laboratory Results - last 24 hr 10/12/22 10/12/22 10/12/22 14:46 14:46 14:46 WBC 7.4 RBC 4.62 Hgb 12.4 L Hct 37.9 L MCV 81.9 MCH 26.7 MCHC 32.6 RDW 15.9 H Plt Count 192 Neut % (Auto) 61.4 Lymph % (Auto) 12.2 L [place] % (Auto) 23.0 H Eos % (Auto) 1.9 L Baso % (Auto) 1.5 Neut # (Auto) 4600 Lymph # (Auto) 900 L [place] # (Auto) 1700 H Eos # (Auto) 100 Baso # (Auto) 100 PT 16.2 H INR 1.4 H APTT 29 Sodium 132 L Potassium 4.8 Chloride 98 Carbon Dioxide 19 L BUN 41 H Creatinine 3.99 H Estimated GFR 15 L BUN/Creatinine Ratio 10.3 Glucose 124 H Lactate Calcium 9.2 Magnesium 2.0 Total Bilirubin 2.1 H AST 214 H ALT 121 H Alkaline Phosphatase 178 H Ammonia Total Creatine Kinase 267 H Troponin I 0.024 NT-Pro-B Natriuret Pep Total Protein 7.4 Albumin 4.1 Globulin 3.3 Albumin/Globulin Ratio 1.2 Lipase 117 Procalcitonin 10/12/22 10/12/22 10/12/22 14:46 14:46 14:46 WBC RBC Hgb Hct MCV MCH MCHC RDW Plt Count Neut % (Auto) Lymph % (Auto) [place] % (Auto) Eos % (Auto) Baso % (Auto) Neut # (Auto) Lymph # (Auto) [place] # (Auto) Eos # (Auto) Baso # (Auto) PT INR APTT Sodium Potassium Chloride Carbon Dioxide BUN Creatinine Estimated GFR BUN/Creatinine Ratio Glucose Lactate 2.3 H Calcium Magnesium Total Bilirubin AST ALT Alkaline Phosphatase Ammonia Total Creatine Kinase Troponin I NT-Pro-B Natriuret Pep 46334 H Total Protein Albumin Globulin Albumin/Globulin Ratio Lipase Procalcitonin 0.18 10/12/22 10/13/22 10/13/22 21:30 04:56 04:56 WBC RBC Hgb Hct MCV MCH MCHC RDW Plt Count Neut % (Auto) Lymph % (Auto) [place] % (Auto) Eos % (Auto) Baso % (Auto) Neut # (Auto) Lymph # (Auto) [place] # (Auto) Eos # (Auto) Baso # (Auto) PT INR APTT Sodium 130 L Potassium 4.5 Chloride 97 L Carbon Dioxide 19 L BUN 44 H Creatinine 4.38 H Estimated GFR 13 L BUN/Creatinine Ratio 10.0 Glucose 93 Lactate 1.7 Calcium 8.9 Magnesium Total Bilirubin AST ALT Alkaline Phosphatase Ammonia < 9 L Total Creatine Kinase Troponin I NT-Pro-B Natriuret Pep Total Protein Albumin Globulin Albumin/Globulin Ratio Lipase Procalcitonin PFSH Medical History (Updated 10/13/22 @ 00:01 by Fabien Sullivan MD) Anemia Atrial fibrillation Congestive heart failure Ethmoid sinusitis History of myocardial infarction Surgical History (Updated 10/12/22 @ 23:59 by Fabien Sullivan MD) History of coronary artery stent placement Social History household members: family Smoking Status: Former smoker alcohol intake: current substance use type: does not use and marijuana Discharge Assessment & Plan Assessment and Plan Assessment: (1) Atrial fibrillation with RVR.? ?? (2) Acute on chronic systolic congestive heart failure, NYHA class 3. ? ? ? (3) Atrial fibrillation with rapid ventricular response 3.? (4) Alcohol dependence.? ? (5) Alcoholic cirrhosis of liver.? (6) Acute hypoxemic respiratory failure.? (7) History of coronary artery stent placement, CABG x 4 vessel.? (8) Ischemic cardiomyopathy.? (9) GERD (gastroesophageal reflux disease). ? Plan of Treatment: Discharge home. Continue all previous usual medications. Take all medications as prescribed. Discharge Plan Discharge Plan Patient Disposition: Home Provider Discharge Comment: Stable for discharge Discharge orders & Medications Prescriptions: New metoprolol tartrate 25 mg Tablet 25 mg PO BID Qty: 30 0RF Continued omeprazole 20 mg Capsule,Delayed Release(Dr/Ec) 20 mg PO DAILY aspirin 81 mg tablet,delayed release (DR/EC) 81 mg PO DAILY Qty: 30 0RF furosemide 40 mg Tablet 40 mg PO DAILY Qty: 30 0RF Follow up/Referrals: Venus Gallo MD [Primary Care Provider] - Discharge Health Status Multidrug resistant organism: No MDRO Diet/Activity/Treatments Diet: Low-sodium Activity: ad shanel Visit Report/Discharge Packet Stand Alone Forms: Patient Portal/API, Congestive Heart Failure Discharge Data Primary Care Provider: Venus Gallo Attending Provider: Fabien Sullivan Admit Date/Time: 10/12/22 21:24 Quality VTE Deep Vein Thrombosis/Pulmonary Embolism Present on Admission: No MIPS - DC The patient has a history of heart transplant or Left Ventricular Assist Device (LVAD). If yes, STOP here.: No The patient has current or prior documentation of left ventricular ejection fraction (LVEF) less than or equal to 40%, or moderate or severely depressed left ventricular systolic function.: Yes A. The patient was prescribed or already taking an Angiotensin-Converting Enzyme (RONNY) Inhibitor, or Angiotensin Receptor Rasheeda (ARB).: No B. The patient was prescribed or already taking a beta-rasheeda. [If Yes to Both A & B, STOP here]: No Patient not prescribed/taking RONNY or ARB for medical/patient reason(s) including (ex: allergy, intolerance, contraindication).: renal disease
--- NOTE | 2022-10-13 09:31 | CM.DANOTE ---
DCP: Case received, EMR reviewed and met with patient. Introduced self and role. Was able to obtain information regarding patient's baseline activity status prior to hospitalization, as well as his current living situation. DCP assessment completed with information currently available. Patient is a 77 year old male who admitted yesterday evening to the care of the hospitalist team. PCP: Dr. Venus Meza. Payer: confirmed: Medicare/[facility]. Patient came to the hospital via private vehicle secondary to having increased shortness of breath. Patient has history of chronic kidney disease, atrial fib, regular alcohol use, cirrhosis of the liver. He also has two stents, secondary to CAD. Patient had gone out drinking, had a hangover, did not feel that he was thoroughly recovered.Patient is under the care of a ignition mechanic and second hand. Patient was admitted for afib with RVR. Met with patient in his room. He was laying in bed, alert. Confirmed he resides with family in [place]. He indicated that he is independent at baseline. Asked him about his drinking, if he was interested in any type of resources for alcohol abuse, shook his head no. Patient hopes to leave for home today. P: DCP to continue to follow for any needs. Patient should be able to go home when stable. Guerline Childs RN/Central Office Maintainer Discharge Planning/Care Management CM Discharge Assessment Start: 10/13/22 09:29 Freq: Status: Active Protocol: Document 10/13/22 09:29 (Rec: 10/13/22 09:30 [id number]) Discharge Planning Assessment Assigned Field Marketing Associate Guerline Childs RN/Central Office Maintainer Advance Directives? No History Provided By Patient,Medical Record Prior Living Arrangements House Household Members family Type of transporation used prior to Drives own vehicle admit Independent with ADL's Yes Is patient alert and oriented? Yes Needs Assistance With Home Chores / Shopping Caregiver for Another No Discharge Plan Home Transportation Arrangement Patient reports his family can provide transport. Referrals Initiated None needed Whiteboard Updated in Patient Room with Yes name and ext. # of Field Marketing Associate Review Status In Process Next Review Type Continued Stay Review
== END 2022-10-13 11:30 | disposition home or self-care (01) ==
LOC: ED 21:24 → AC 21:25
PROVIDERS: Emergency Medicine; Admitting Provider Internal Medicine; Emergency Provider Emergency Medicine; PCP Family Medicine; Referring Provider Emergency Medicine; Visit Provider Internal Medicine
DX: I48.91 Unspecified atrial fibrillation (principal); I50.23 Acute on chronic systolic (congestive) heart failure; F10.20 Alcohol dependence, uncomplicated; K70.30 Alcoholic cirrhosis of liver without ascites; J96.01 Acute respiratory failure with hypoxia; Z95.5 Presence of coronary angioplasty implant and graft; I25.5 Ischemic cardiomyopathy; K21.9 Gastro-esophageal reflux disease without esophagitis
CPT/HCPCS: 36415; 71045; 76700; 80048; 80053; 82140; 82550; 83605; 83690; 83735; 83880; 84145; 84484; 85025; 85610; 85730; 93005; 93306; 96372; 96374; 99284; G0378; J1644; J1940

== ENCOUNTER → 2022-11-21 12:08 | Outpatient (CLI) | payer MEDICARE, OTHER, SELFPAY ==
[2022-10-12 22:27] VITALS: BMI 24.0
[2022-11-21 13:09] LABS: Hematocrit 36.7 % (41-53); Hemoglobin 11.6 g/dL (13.5-17.5)
[2022-11-21 13:25] LABS: BUN Creatinine Ratio 10.8 (6-22); Blood Urea Nitrogen 36 mg/dL (9-20); Calcium 9.5 mg/dL (8.4-10.2); Carbon Dioxide 23 mmol/L (22-32); Chloride 102 mmol/L (98-107); Estimated Glomerular Filt Rate 18 mL/min (>60); Glucose 119 mg/dL (80-110); HEMOLYSIS < 15 (0-50); Potassium 4.6 mmol/L (3.4-5.1); Sodium 135 mmol/L (137-145)
[2022-11-22 10:45] LABS: Parathyroid Hormone Int 76 pg/mL (15-65)
[2022-11-22 16:07] LABS: Creatinine Urine Random 160.8 mg/dL; Protein (Total) Urine Random 123 mg/dL (0-12); Protein Creatinine Ratio Urine 0.76 GRAM/24H
== END ==
PROVIDERS: PCP Family Medicine; Referring Provider Student in an Organized Health Care Education/Training Program; Visit Provider Student in an Organized Health Care Education/Training Program
DX: N05.9 Unspecified nephritic syndrome with unspecified morphologic changes (principal); D64.9 Anemia, unspecified; N25.81 Secondary hyperparathyroidism of renal origin; R80.9 Proteinuria, unspecified
CPT/HCPCS: 36415; 80048; 82570; 83970; 84156; 85014; 85018

== ENCOUNTER 2022-12-29 11:02 | Emergency (ER) | payer MEDICARE, OTHER, SELFPAY ==
[2022-10-12 22:27] VITALS: BMI 24.0
[2022-12-29] VITALS (72 sets, daily range): BP systolic 86–133; BP diastolic 55–101; PULSE 108–172; RESP 22–50; TEMP 37.3–38.8; O2SAT 84–100; BMI 23.9
--- NOTE | 2022-12-29 | DI.RAD.S_ITS ---
PROCEDURE: XR CHEST 1V INDICATIONS: Shortness of breath TECHNIQUE: One view of the chest was acquired. COMPARISON: [facility], CT, CT CHEST ABD PEL WO CON, 12/29/2022, 11:21. [facility], CR, XR CHEST 1V, 10/12/2022, 15:52. [facility], CR, XR CHEST 1V, 07/28/2022, 10:10. FINDINGS: Surgical changes and devices: Left internal jugular central venous catheter present with tip projecting over the mid SVC. Lungs and pleura: Hazy opacities at both lung bases likely layering pleural fluid as on same day CT. No definite pneumothorax. Mediastinum: Cardiac silhouette is at the upper limit of normal in size. Bones and chest wall: No suspicious bony lesions. Overlying soft tissues appear unremarkable. IMPRESSION: Tip of the left internal jugular central venous catheter projects over the mid SVC. Dictated by: Reji Caro M.D. on 12/29/2022 at 13:42 Approved by: Reji Caro M.D. on 12/29/2022 at 13:51
--- NOTE | 2022-12-29 11:10 | DI.CT.S_ITS ---
PROCEDURE: CT CHEST ABD PEL WO CON INDICATIONS: severe abdominal pain, SOB TECHNIQUE: After the administration of oral contrast, 5 mm thick sections acquired from the lung apices to the symphysis pubis. 5 mm thick coronal and sagittal reformats acquired, with additional 7 mm coronal MIP reformats through the lungs. For radiation dose reduction, the following was used: automated exposure control, adjustment of mA and/or kV according to patient size. COMPARISON: [facility], US, US ABDOMEN COMPLETE, 10/12/2022, 18:31. [facility], CT, CT CHEST WO CON, 07/28/2022, 13:56. FINDINGS: Image quality: Fair. Respiratory motion. Evaluation of the solid parenchymal organs is limited without IV contrast. CHEST: Lungs and pleura: No acute pulmonary opacities identified. No pneumothorax. Moderate bilateral pleural effusions. Central and peripheral airways are patent are normal in caliber. Mediastinum: Heart size is prominent. Left atrial occluded device. Moderate three-vessel coronary artery calcifications. No pericardial effusion. No mediastinal adenopathy by CT size criteria. Thoracic aorta and central pulmonary arteries are normal in size. Esophagus is normal in caliber. No hiatal hernia. Chest wall: No axillary or supraclavicular adenopathy by size criteria. Thyroid gland is unremarkable . ABDOMEN: Solid organs: Liver is normal in size. Liver surface appears somewhat nodular. Trace ascites adjacent to the liver. Hepatic steatosis. Gallbladder is within normal limits. Pancreas is normal in contours. Spleen is normal in size. No adrenal nodules. No hydronephrosis. Several bilateral nonobstructing kidney stones and/or arterial vascular calcifications. Peritoneum and bowel: Stomach is within normal limits. No small bowel obstruction. Diverticulosis. The appendix is within normal limits in size. Small volume of ascites mostly in the pelvis. A focus of extraluminal gas in the left lower quadrant, (2/103). No gross pneumoperitoneum. Nodes and vessels: No retroperitoneal or mesenteric adenopathy by size criteria. Mild aortic ectasia. Extensive calcified atherosclerotic plaque. No portal venous gas. Miscellaneous: No ventral hernias. PELVIS: Genitourinary: Bladder is unremarkable. Miscellaneous: No inguinal hernias or adenopathy. Bones: No suspicious bony lesions. DDD. No vertebral body compression fractures. IMPRESSION: Image quality is fair. Motion artifact. Evaluation of the solid parenchymal organs is limited without IV contrast. 1. Moderate bilateral pleural effusions. 2. Small volume of ascites. Concern for cirrhosis. 3. A focus of extraluminal gas in the left lower quadrant. This is indeterminate and could be the sequelae of occult diverticulitis. No abscess. Comment: Findings were discussed with Dr. Beau Varner at time of dictation. Dictated by: Cyrus Feliz M.D. on 12/29/2022 at 11:42 Approved by: Cyrus Feliz M.D. on 12/29/2022 at 12:01
--- NOTE | 2022-12-29 11:13 | ED_ITS ---
HPI - General Adult General Chief complaint: Shortness of Breath/Dyspnea Stated complaint: SOB, ABD pain. Liver failure Time Seen by Provider: 12/29/22 11:04 History of Present Illness HPI narrative: 77-year-old male former smoker, former heavy drinker with history of cirrhosis and known varices presents by EMS for evaluation of severe abdominal pain and shortness of breath that has been present for maybe a day or 2. He is had fever and shaking chills. He denies any runny nose, sore throat or cough. He denies any chest pain. His abdominal pain is significant with any motion or palpation. He denies trouble urinating or any dark stools. He denies any recent change in medications or diet. EMS found him to be with increased work of breathing in severe abdominal pain with an initial blood pressure in the 70s. Related Data Home Medications Medication Instructions Recorded Confirmed omeprazole 20 mg capsule,delayed 20 mg PO DAILY 11/25/18 10/12/22 release Previous Rx's Medication Instructions Recorded aspirin 81 mg tablet,delayed 81 mg PO DAILY #30 tabs 11/25/18 release furosemide 40 mg tablet 40 mg PO DAILY #30 tabs 01/13/20 metoprolol tartrate 25 mg tablet 25 mg PO BID #30 tabs 10/13/22 Allergies Allergy/AdvReac Type Severity Reaction Status Date / Time lisinopril [LISINOPRIL] Allergy Unknown Verified 10/12/22 14:37 Review of Systems Review of Systems Narrative: GENERAL: See HPI HEENT: Denies sinus pain, ear pain, sore throat, difficulty swallowing, dizziness. RESPIRATORY: See HPI CARDIOVASCULAR: Denies chest pain, palpitations, orthopnea, edema, GASTROINTESTINAL: D see HPI : Denies dysuria, frequency, incontinence, hematuria, urinary retention. MUSCULOSKELETAL: denies weakness, joint pain, or bony pain SKIN: Denies rash, skin lesions, or other NEUROLOGIC: Denies weakness, headache, numbness, change in speech, confusion, seizures, incoordination. PSYCHIATRIC: No concerning psychosocial issues. 12 point review of systems is negative except for those stated above Patient History Medical History History of myocardial infarction Congestive heart failure Anemia Atrial fibrillation Ethmoid sinusitis Surgical History History of coronary artery stent placement Social History household members: family Smoking Status: Former smoker alcohol intake: current substance use type: does not use and marijuana Smoking Status: Former smoker alcohol intake frequency: 3 or more drinks per day Substance Use Type: marijuana Exam Narrative Exam Narrative: GENERAL: [77] year old patient appears stated age. Well-developed patient, in obvious significant distress HEAD: Atraumatic. Normocephalic. EYES: Pupils equal round and reactive. Extraocular motions intact. No scleral icterus. No injection or drainage. ENT: Nose without bleeding, purulent drainage. Throat without erythema, tonsillar hypertrophy or exudate. Airway patent. NECK: Trachea midline. Non tender CARDIOVASCULAR: R tachycardic and irregular rhythm without murmurs, gallops, or rubs. RESPIRATORY: Increased work of breathing, decreased breath sounds bilateral bases with crackles in the apices GASTROINTESTINAL: Abdomen firm and severely tender, peritoneal signs throughout, decreased bowel sounds EXTREMITIES: No edema or joint tenderness. BACK: Nontender without deformity or crepitance. No flank tenderness. NEURO: AOx3. SKIN: No rash or erythema of visible areas Initial Vital Signs Initial Vital Signs: Vital Signs Temperature 99.3 F 12/29/22 11:00 Pulse Rate 166 H 12/29/22 11:00 Respiratory Rate 46 H 12/29/22 11:00 Blood Pressure 124/80 12/29/22 11:00 Pulse Oximetry 91 12/29/22 11:00 Oxygen Delivery Method Nasal Cannula 12/29/22 11:00 Oxygen Flow Rate 5 12/29/22 11:00 Procedures Central Line Placement Left IJ: Time Out Performed: Yes Patient Placed on Monitor/Pulse Ox: Yes MD Prep: mask, gown and gloves Central Line Prep: Chlorhexidine scrub and sterile drapes applied Local Anesthetic: lidocaine 1% Amount of anesthesia used (mL): 4 Ultrasound Used for Placement: Yes Central Line Lumen Inserted: triple Post Procedure: good blood return, all ports aspirated, flushed, capped, sterile dressing applied and line stabilization device Post Procedure X-Ray: tip of catheter in good position Patient Tolerated Procedure: Well Complications: none Course Orders Ordered: ED Orders 12/29/22 11:10 CT chest abd pel wo con Stat Complete Blood Count AUTO DIFF Stat Comprehensive Metabolic Panel Stat Lactate (Lactic Acid) Stat Lipase Stat Magnesium Stat NT-proBNP (BNP-Adult 18+) Stat PTT Partial Thromboplastin Martin Stat Prothrombin Time INR Stat Troponin & CK Cardiac Panel Stat Type and Screen Stat 12/29/22 11:43 COVID19 -Nasal RAPID Stat 12/29/22 11:45 EKG-12 Lead Stat 12/29/22 12:06 Blood Culture Stat 12/29/22 13:39 CBC Auto Diff [Complete Blood Count AUTO DIFF] Stat CMP [Comprehensive Metabolic Panel] Stat Troponin & CK Cardiac Panel Stat NOREPINEPHRINE BITARTRATE/D5W (Levophed) 4 mg in 250 mls @ 27.556 mls/hr IV TITRATE BALJIT; Protocol Last Admin: 12/29/22 15:51 Dose: 0.1 mcg/kg/min, 27.556 mls/hr Documented By: TRENT Sodium Chloride (Normal Saline 0.9%) 1,000 mls @ 150 mls/hr IV BOLUS ONE Stop: 12/29/22 22:24 Last Admin: 12/29/22 15:37 Dose: 150 mls/hr Documented By: JOSÉ MIGUEL Dextrose (D10w) 100 mls @ 1,200 mls/hr IV PRN PRN PRN Reason: Hypoglycemia Discontinued Medications Sodium Chloride (Normal Saline 0.9%) 2,204.46 mls @ 734.82 mls/hr 30 ml/kg infuse over 3 hr (2204.46 ml) IV NOW ONE Stop: 12/29/22 14:42 Last Infusion: 12/29/22 14:20 Dose: Infused Documented By: Admin: 12/29/22 11:49 Dose: 734.82 mls/hr Documented By: TRENT Piperacillin Sod/Tazobactam (Sod 4.5 gm/ Sodium Chloride) 100 mls @ 200 mls/hr IV NOW ONE Stop: 12/29/22 11:44 Last Infusion: 12/29/22 13:00 Dose: Infused Documented By: Admin: 12/29/22 12:10 Dose: 200 mls/hr Documented By: TRENT Acetaminophen (Ofirmev) 1,000 mg in 100 mls @ 400 mls/hr IV NOW ONE Stop: 12/29/22 14:03 Last Infusion: 12/29/22 15:00 Dose: Infused Documented By: JOSÉ MIGUEL Admin: 12/29/22 14:28 Dose: 400 mls/hr Documented By: TRENT Sodium Chloride (Normal Saline 0.9%) 1,000 mls @ 150 mls/hr IV BOLUS ONE Stop: 12/29/22 21:00 Last Infusion: 12/29/22 15:00 Dose: Infused Documented By: JOSÉ MIGUEL Admin: 12/29/22 14:33 Dose: 150 mls/hr Documented By: TRENT Pantoprazole Sodium (Pantoprazole 40 Mg Vial) 40 mg IV NOW ONE Stop: 12/29/22 11:05 Last Admin: 12/29/22 12:10 Dose: 40 mg Documented By: TRENT Consultations Consultation #1: seen very early in visit by general surgery, Dr. Martinez. Not in need of emergent surgical intervention, given complexity of other medical problems is best served by larger facility. This sentiment is shared by Dr. Zhong (hospitalist) Vital Signs Vital signs: Vital Signs - 8 hr 12/29/22 11:00 12/29/22 11:09 12/29/22 11:09 Temperature 99.3 F Pulse Rate 166 H 167 H Respiratory Rate 46 H 50 H Blood Pressure 124/80 124/80 Pulse Oximetry 91 90 L Oxygen Delivery Method Nasal Cannula Nasal Cannula Oxygen Flow Rate 5 5 12/29/22 11:23 12/29/22 11:23 12/29/22 11:30 Temperature Pulse Rate 172 H 172 H Respiratory Rate 34 H 39 H Blood Pressure 116/79 Pulse Oximetry 88 L Oxygen Delivery Method Nasal Cannula Oxygen Flow Rate 5 12/29/22 11:46 12/29/22 11:46 12/29/22 11:56 Temperature Pulse Rate 154 H Respiratory Rate 36 H Blood Pressure 116/70 116/84 Pulse Oximetry 89 L Oxygen Delivery Method Nasal Cannula Oxygen Flow Rate 5 12/29/22 11:56 12/29/22 12:00 12/29/22 12:01 Temperature Pulse Rate 153 H 153 H Respiratory Rate 33 H 35 H Blood Pressure 126/73 Pulse Oximetry 90 L Oxygen Delivery Method Nasal Cannula Oxygen Flow Rate 5 12/29/22 12:01 12/29/22 12:10 12/29/22 12:10 Temperature Pulse Rate 148 H 151 H Respiratory Rate 33 H 35 H Blood Pressure 111/80 Pulse Oximetry 92 Oxygen Delivery Method Nasal Cannula Oxygen Flow Rate 5 12/29/22 12:20 12/29/22 12:20 12/29/22 12:30 Temperature 99.1 F Pulse Rate 152 H Respiratory Rate 35 H Blood Pressure 128/60 115/73 Pulse Oximetry Oxygen Delivery Method Oxygen Flow Rate 12/29/22 12:30 12/29/22 12:40 12/29/22 12:40 Temperature 101.3 F H 101.8 F H Pulse Rate 138 H 133 H Respiratory Rate 23 30 H Blood Pressure 108/59 L Pulse Oximetry 93 96 Oxygen Delivery Method Nasal Cannula Oxygen Flow Rate 5 12/29/22 12:41 12/29/22 12:50 12/29/22 12:50 Temperature 101.8 F H Pulse Rate 126 H Respiratory Rate 28 H Blood Pressure 86/59 L Pulse Oximetry 96 97 Oxygen Delivery Method Nasal Cannula Nasal Cannula Oxygen Flow Rate 5 5 12/29/22 12:51 12/29/22 12:51 12/29/22 12:53 Temperature 101.8 F H 101.8 F H Pulse Rate 123 H 124 H Respiratory Rate 28 H 29 H Blood Pressure 89/62 L Pulse Oximetry 97 97 Oxygen Delivery Method Oxygen Flow Rate 12/29/22 12:53 12/29/22 12:55 12/29/22 12:55 Temperature 101.7 F H Pulse Rate 122 H Respiratory Rate 30 H Blood Pressure 88/59 L 93/66 Pulse Oximetry 84 L Oxygen Delivery Method Oxygen Flow Rate 12/29/22 13:00 12/29/22 13:00 12/29/22 13:05 Temperature 101.7 F H Pulse Rate 122 H Respiratory Rate 31 H Blood Pressure 98/59 L 101/59 L Pulse Oximetry 92 Oxygen Delivery Method Nasal Cannula Oxygen Flow Rate 5 12/29/22 13:05 12/29/22 13:10 12/29/22 13:10 Temperature 101.7 F H 101.5 F H Pulse Rate 122 H 121 H Respiratory Rate 25 H 32 H Blood Pressure 96/61 Pulse Oximetry 91 97 Oxygen Delivery Method Nasal Cannula Nasal Cannula Oxygen Flow Rate 5 5 12/29/22 13:15 12/29/22 13:15 12/29/22 13:20 Temperature 101.5 F H 101.3 F H Pulse Rate 122 H 126 H Respiratory Rate 29 H 31 H Blood Pressure 96/59 L Pulse Oximetry 95 97 Oxygen Delivery Method Nasal Cannula Oxygen Flow Rate 5 12/29/22 13:20 12/29/22 13:25 12/29/22 13:25 Temperature 101.3 F H Pulse Rate 124 H Respiratory Rate 26 H Blood Pressure 95/59 L 96/61 Pulse Oximetry 91 Oxygen Delivery Method Nasal Cannula Oxygen Flow Rate 5 12/29/22 13:30 12/29/22 13:30 12/29/22 13:35 Temperature 101.1 F H Pulse Rate 124 H Respiratory Rate 29 H Blood Pressure 96/63 95/63 Pulse Oximetry 92 Oxygen Delivery Method Oxygen Flow Rate 12/29/22 13:35 12/29/22 13:40 12/29/22 13:40 Temperature 101.1 F H 101.1 F H Pulse Rate 119 H 117 H Respiratory Rate 30 H 26 H Blood Pressure 93/65 Pulse Oximetry 95 95 Oxygen Delivery Method Nasal Cannula Nasal Cannula Oxygen Flow Rate 5 5 12/29/22 13:45 12/29/22 13:45 12/29/22 13:50 Temperature 100.9 F H Pulse Rate 120 H Respiratory Rate 25 H Blood Pressure 98/60 92/60 Pulse Oximetry 95 Oxygen Delivery Method Nasal Cannula Oxygen Flow Rate 5 12/29/22 13:50 12/29/22 13:55 12/29/22 13:55 Temperature 100.9 F H 100.9 F H Pulse Rate 127 H 117 H Respiratory Rate 26 H 27 H Blood Pressure 93/60 Pulse Oximetry 91 96 Oxygen Delivery Method Nasal Cannula Nasal Cannula Oxygen Flow Rate 5 5 12/29/22 14:00 12/29/22 14:00 12/29/22 14:05 Temperature 100.9 F H Pulse Rate 121 H Respiratory Rate 25 H Blood Pressure 94/61 103/67 Pulse Oximetry 94 Oxygen Delivery Method Nasal Cannula Oxygen Flow Rate 5 12/29/22 14:05 12/29/22 14:10 12/29/22 14:10 Temperature 100.8 F H 100.8 F H Pulse Rate 117 H 120 H Respiratory Rate 23 26 H Blood Pressure 98/59 L Pulse Oximetry 93 94 Oxygen Delivery Method Nasal Cannula Oxygen Flow Rate 5 12/29/22 14:15 12/29/22 14:15 12/29/22 14:20 Temperature 100.8 F H Pulse Rate 119 H Respiratory Rate 27 H Blood Pressure 103/59 L 101/67 Pulse Oximetry 94 Oxygen Delivery Method Oxygen Flow Rate 12/29/22 14:20 12/29/22 14:25 12/29/22 14:25 Temperature 100.8 F H 100.8 F H Pulse Rate 122 H 122 H Respiratory Rate 26 H 26 H Blood Pressure 101/69 Pulse Oximetry 95 94 Oxygen Delivery Method Nasal Cannula Nasal Cannula Oxygen Flow Rate 5 5 12/29/22 14:30 12/29/22 14:30 12/29/22 14:35 Temperature 100.8 F H 100.8 F H Pulse Rate 119 H 120 H Respiratory Rate 25 H 25 H Blood Pressure 97/71 Pulse Oximetry 98 96 Oxygen Delivery Method Nasal Cannula Nasal Cannula Oxygen Flow Rate 5 5 12/29/22 14:35 12/29/22 14:40 12/29/22 14:40 Temperature 100.8 F H Pulse Rate 118 H Respiratory Rate 25 H Blood Pressure 97/65 93/64 Pulse Oximetry 94 Oxygen Delivery Method Nasal Cannula Oxygen Flow Rate 5 12/29/22 14:45 12/29/22 14:45 12/29/22 14:50 Temperature 100.8 F H Pulse Rate 119 H Respiratory Rate 28 H Blood Pressure 98/63 97/55 L Pulse Oximetry 95 Oxygen Delivery Method Nasal Cannula Oxygen Flow Rate 5 12/29/22 14:50 12/29/22 14:55 12/29/22 14:55 Temperature 100.8 F H 100.6 F H Pulse Rate 122 H 121 H Respiratory Rate 26 H 28 H Blood Pressure 121/55 L Pulse Oximetry 94 95 Oxygen Delivery Method Nasal Cannula Nasal Cannula Oxygen Flow Rate 5 5 12/29/22 15:00 12/29/22 15:00 12/29/22 15:05 Temperature 100.6 F H Pulse Rate 123 H Respiratory Rate 25 H Blood Pressure 101/76 93/64 Pulse Oximetry 96 Oxygen Delivery Method Oxygen Flow Rate 12/29/22 15:05 12/29/22 15:10 12/29/22 15:10 Temperature 100.6 F H 100.6 F H Pulse Rate 122 H 120 H Respiratory Rate 25 H 24 Blood Pressure 87/56 L Pulse Oximetry 93 93 Oxygen Delivery Method Nasal Cannula Nasal Cannula Oxygen Flow Rate 5 5 12/29/22 15:15 12/29/22 15:15 12/29/22 15:20 Temperature 100.6 F H Pulse Rate 121 H Respiratory Rate 27 H Blood Pressure 95/63 86/64 L Pulse Oximetry 93 Oxygen Delivery Method Nasal Cannula Oxygen Flow Rate 5 12/29/22 15:20 12/29/22 15:25 12/29/22 15:25 Temperature 100.6 F H 100.4 F H Pulse Rate 116 H 117 H Respiratory Rate 25 H 24 Blood Pressure 95/59 L Pulse Oximetry 94 93 Oxygen Delivery Method Nasal Cannula Oxygen Flow Rate 5 12/29/22 15:30 12/29/22 15:30 12/29/22 15:35 Temperature 100.4 F H Pulse Rate 123 H Respiratory Rate 25 H Blood Pressure 97/61 97/59 L Pulse Oximetry 93 Oxygen Delivery Method Nasal Cannula Oxygen Flow Rate 5 12/29/22 15:35 12/29/22 15:40 12/29/22 15:40 Temperature 100.4 F H 100.4 F H Pulse Rate 119 H 121 H Respiratory Rate 22 24 Blood Pressure 99/61 Pulse Oximetry 94 93 Oxygen Delivery Method Nasal Cannula Nasal Cannula Oxygen Flow Rate 5 5 12/29/22 15:45 12/29/22 15:45 12/29/22 15:50 Temperature 100.4 F H 100.4 F H Pulse Rate 119 H 113 H Respiratory Rate 24 23 Blood Pressure 100/62 Pulse Oximetry 94 94 Oxygen Delivery Method Oxygen Flow Rate 12/29/22 15:50 12/29/22 15:55 12/29/22 15:55 Temperature 100.2 F H Pulse Rate 120 H Respiratory Rate 29 H Blood Pressure 97/67 103/65 Pulse Oximetry 94 Oxygen Delivery Method Oxygen Flow Rate 12/29/22 16:00 12/29/22 16:00 12/29/22 16:05 Temperature 100.2 F H 100.2 F H Pulse Rate 117 H 110 H Respiratory Rate 33 H 23 Blood Pressure 102/71 Pulse Oximetry 97 97 Oxygen Delivery Method Nasal Cannula Nasal Cannula Oxygen Flow Rate 5 5 12/29/22 16:05 12/29/22 16:10 12/29/22 16:10 Temperature 100.2 F H Pulse Rate 115 H Respiratory Rate 28 H Blood Pressure 113/81 116/72 Pulse Oximetry 98 Oxygen Delivery Method Nasal Cannula Oxygen Flow Rate 5 12/29/22 16:15 12/29/22 16:15 12/29/22 16:20 Temperature 100.2 F H Pulse Rate 108 H Respiratory Rate 23 Blood Pressure 113/82 106/82 Pulse Oximetry 97 Oxygen Delivery Method Nasal Cannula Oxygen Flow Rate 5 12/29/22 16:20 12/29/22 16:25 12/29/22 16:25 Temperature 100.2 F H 100.2 F H Pulse Rate 115 H 116 H Respiratory Rate 27 H 28 H Blood Pressure 118/81 Pulse Oximetry 96 97 Oxygen Delivery Method Nasal Cannula Oxygen Flow Rate 5 12/29/22 16:30 12/29/22 16:30 12/29/22 16:35 Temperature 100.2 F H Pulse Rate 119 H Respiratory Rate 24 Blood Pressure 111/79 104/81 Pulse Oximetry 98 Oxygen Delivery Method Oxygen Flow Rate 12/29/22 16:35 12/29/22 16:40 12/29/22 16:40 Temperature 100.2 F H 100.2 F H Pulse Rate 118 H 122 H Respiratory Rate 28 H 28 H Blood Pressure 120/101 H Pulse Oximetry 97 98 Oxygen Delivery Method Nasal Cannula Nasal Cannula Oxygen Flow Rate 5 5 12/29/22 16:45 12/29/22 16:45 12/29/22 16:50 Temperature 100.2 F H Pulse Rate 110 H Respiratory Rate 25 H Blood Pressure 113/76 116/77 Pulse Oximetry 97 Oxygen Delivery Method Nasal Cannula Oxygen Flow Rate 5 12/29/22 16:50 12/29/22 16:55 12/29/22 16:55 Temperature 100.2 F H 100.2 F H Pulse Rate 117 H 119 H Respiratory Rate 24 29 H Blood Pressure 109/82 Pulse Oximetry 97 98 Oxygen Delivery Method Oxygen Flow Rate 5 12/29/22 17:00 12/29/22 17:00 Temperature 100.2 F H Pulse Rate 123 H Respiratory Rate 31 H Blood Pressure 108/89 Pulse Oximetry 100 Oxygen Delivery Method Nasal Cannula Oxygen Flow Rate 5 Medical Decision Making Lab Data 12/29/22 13:39 12/29/22 13:39 Labs: Lab Results 12/29/22 12/29/22 12/29/22 Range/Units 11:10 11:43 13:39 WBC 5.7 3.9 L (4.5-11.0) X10^3/uL RBC 5.68 4.71 (4.5-5.9) X10^6/uL Hgb 14.0 11.4 L (13.5-17.5) g/dL Hct 44.8 35.9 L (41-53) % MCV 78.8 L 76.1 L (80-100) fL MCH 24.7 L 24.1 L (26-34) PG MCHC 31.4 31.7 (30-36) % RDW 21.4 H 21.3 H (11.6-14.8) % Plt Count 227 167 (150-400) X10^3/uL Neut % (Auto) 79.2 H 89.2 H (50-75) % Lymph % (Auto) 11.8 L 4.0 L (25-40) % [place] % (Auto) 6.0 6.0 (3-14) % Eos % (Auto) 1.1 L 0.3 L (2-4) % Baso % (Auto) 1.9 0.5 (0-2) % Neut # (Auto) 4500 3400 (6207-9088) /uL Lymph # (Auto) 700 L 200 L (8348-1801) /uL [place] # (Auto) 300 200 (0-900) /uL Eos # (Auto) 100 0 (0-450) /uL Baso # (Auto) 100 0 (0-100) /uL RBC Morphology See below See below Poikilocytosis 2+ H 2+ H Acanthocytes (Spur) 1+ 1+ PT 14.1 H (10.1-12.7) SECONDS INR 1.2 (0.9-1.3) APTT 27 (26-36) SECONDS Sodium 140 139 (137-145) mmol/L Potassium 4.7 3.5 D (3.4-5.1) mmol/L Chloride 104 108 H (98-107) mmol/L Carbon Dioxide 16 L 17 L (22-32) mmol/L BUN 48 H 48 H (9-20) mg/dL Creatinine 3.81 H 3.56 H (0.66-1.25) mg/dL Estimated GFR 16 L 17 L (>60) mL/min BUN/Creatinine Ratio 12.6 13.5 (6-22) Glucose 77 L 61 L (80-110) mg/dL Lactate 8.5 H* 2.6 H (0.7-2.1) mmol/L Calcium 10.1 8.9 (8.4-10.2) mg/dL Magnesium 2.2 (1.6-2.3) mg/dL Total Bilirubin 5.3 H 4.4 H (0.2-1.3) mg/dL AST 52 31 (17-59) IU/L ALT 65 H 29 (<50) IU/L Alkaline Phosphatase 156 H 118 (38-126) U/L Total Creatine Kinase 73 67 (55-170) U/L Troponin I 0.043 H 0.042 H (0.01-0.034) ng/mL NT-Pro-B Natriuret Pep 36905 H (<450) pg/mL Total Protein 8.0 5.8 L (6.3-8.2) g/dL Albumin 4.4 2.9 L (3.5-5.0) g/dL Globulin 3.6 2.9 (1.7-4.1) g/dL Albumin/Globulin Ratio 1.2 1.0 (1.0-2.8) Lipase 127 (23-300) U/L SARS-CoV-2 (PCR) Negative (Negative) Blood Type O Positive Antibody Screen Negative MDM Narrative Medical decision making narrative: CC: 77-year-old male with abdominal pain, fever and chills, shortness of breath Complicating co-morbidities: Chronic kidney disease, liver disease, cardiac history Data collected from: Patient Medical records reviewed: Prior notes reviewed in our EMR Differential considered, but not limited to: Perforated bowel versus intra- abdominal hemorrhage versus sepsis from other source versus other Exam documented above, pertinent findings include: Tachycardic and irregular on arrival, increased work of breathing, peritoneal signs on abdominal exam, free fluid noted on bedside point of care ultrasound Lab Test results independently reviewed as above. Pertinent findings: No leukocytosis or left shift, hemoglobin dropped from 14-11.4 after fluids, platelets 167, INR 1.2, sodium 139, potassium 3.5, slightly acidotic with a CO2 of 17, creatinine 3.56, initial lactate 8.5, improves to 2.6, blood glucose 61, D10 administered Independently reviewed EKG as above Imaging studies independently reviewed: CT chest abdomen pelvis without IV contrast demonstrates moderate bilateral pleural effusions, focus of extraluminal gas in the left lower quadrant without abscess Consultations: discussed with Dr. Martinez ( Gen Surgeon) see details above. Dr. Zhong (Hospitalist) see details above. Dr. Montoya ([place] [facility]) happy to accept pending surgery approval. Dr. Christiansen ([facility]) happy to accept Treatments: Fluids at 30 cc/kilogram of actual body weight, ongoing at 1:25 a.m., Zosyn, D10, Levophed Re-evaluations: Patient initially improved after IV fluids but systolic began dropping below 90 at which point central line was placed and Levophed initiated Patient with septic shock and severe abdominal pain is found to have free air in the left lower quadrant concerning for perforated bowel, he is fluid resuscitated and improves over the course of his visit. I have had extensive discussions with local General surgery and hospitalist and given his stabilization they both strongly recommend transfer to a larger facility with access to more specialty care. Consultation with supervisor livestock yard and General surgery [place], both are happy to accept patient. Ground transport was suggesting well over an hour before they could arrived here, [facility] called for transport. Patient and family made aware of diagnosis and plan Critical Care Time Critical Care Time Critical Care Time: Yes Total Critical Care Time: 45 Attestation: Critical Care Time [45] minutes: Critical care time is separate from other billable procedures. This critical care time includes consultation with family and other consulting doctors, review of records, and interpretation of data from labs, EKGs, imaging, etc. Discharge Plan Departure Patient Disposition: [facility] Clinical Impression: Septic shock, Bowel perforation, Hypoglycemia, Chronic kidney disease Prescriptions: No Action omeprazole 20 mg Capsule,Delayed Release(Dr/Ec) 20 mg PO DAILY aspirin 81 mg tablet,delayed release (DR/EC) 81 mg PO DAILY Qty: 30 0RF furosemide 40 mg Tablet 40 mg PO DAILY Qty: 30 0RF metoprolol tartrate 25 mg Tablet 25 mg PO BID Qty: 30 0RF Referrals: Venus Gallo MD [Primary Care Provider] -
[2022-12-29 11:27] LABS: Basophils Absolute Auto 100 /uL (0-100); Basophils Percent Auto 1.9 % (0-2); Eosinophils Absolute Auto 100 /uL (0-450); Eosinophils Percent Auto 1.1 % (2-4); Hematocrit 44.8 % (41-53); Lymphocytes Absolute Auto 700 /uL (1100-4500); Lymphocytes Percent Auto 11.8 % (25-40); Mean Corpuscular HGB Conc 31.4 % (30-36); Mean Corpuscular Hemoglobin 24.7 PG (26-34); Mean Corpuscular Volume 78.8 fL (80-100); Monocytes Absolute Auto 300 /uL (0-900); Neutrophils Absolute Auto 4500 /uL (1500-7000); Neutrophils Percent Auto 79.2 % (50-75); Platelet Count 227 X10^3/uL (150-400); Red Blood Cell Count 5.68 X10^6/uL (4.5-5.9); Red Cell Distribution Width 21.4 % (11.6-14.8); White Blood Cell Count 5.7 X10^3/uL (4.5-11.0)
--- NOTE | 2022-12-29 11:28 | PC.NURSE ---
Pt tachypneic, SOB on 5L NC, restless, back in room after CT scan.
[2022-12-29 11:31] LABS: INR 1.2 (0.9-1.3); Prothrombin Time 14.1 SECONDS (10.1-12.7)
[2022-12-29 11:34] LABS: Add Manual Diff / Slide Review SLIDE REVIEW; PTT Partial Thromboplastin Tim 27 SECONDS (26-36)
[2022-12-29 11:38] LABS: Alanine Aminotransferase 65 IU/L (<50); Albumin 4.4 g/dL (3.5-5.0); Albumin Globulin Ratio 1.2 (1.0-2.8); Alkaline Phosphatase 156 U/L (38-126); Aspartate Aminotransferase 52 IU/L (17-59); BUN Creatinine Ratio 12.6 (6-22); Bilirubin Total 5.3 mg/dL (0.2-1.3); Blood Urea Nitrogen 48 mg/dL (9-20); Calcium 10.1 mg/dL (8.4-10.2); Carbon Dioxide 16 mmol/L (22-32); Chloride 104 mmol/L (98-107); Creatine Kinase 73 U/L (55-170); Estimated Glomerular Filt Rate 16 mL/min (>60); Globulin 3.6 g/dL (1.7-4.1); Glucose 77 mg/dL (80-110); HEMOLYSIS 50 (0-50); Lipase 127 U/L (23-300); Magnesium 2.2 mg/dL (1.6-2.3); Potassium 4.7 mmol/L (3.4-5.1); Sodium 140 mmol/L (137-145)
[2022-12-29 11:42] LABS: Lactate (Lactic Acid) 8.5 mmol/L (0.7-2.1)
[2022-12-29] MEDS: SODIUM CHLORIDE 0.9% 734.82 ML IV (11:49)
[2022-12-29 11:50] LABS: Troponin I 0.043 ng/mL (0.01-0.034)
[2022-12-29 12:00] LABS: Poikilocytosis 2+
[2022-12-29 12:01] LABS: Acanthocytes 1+
[2022-12-29 12:03] LABS: NT-proBNP (BNP-Adult 18+) 56900 pg/mL (<450)
[2022-12-29] MEDS: PIPERACILLIN/TAZO 4.5 GM in SODIUM CHLORIDE 0.9% 100 ML IV (12:10)
[2022-12-29] MEDS: PANTOPRAZOLE 40 MG VIAL IV (12:10)
[2022-12-29 12:12] LABS: COVID19 -Nasal RAPID Negative (Negative)
--- NOTE | 2022-12-29 12:30 | PC.NURSE ---
Dr. Martinez surgeon at bedside to discuss plan of patients care. Patient states his abdominal pain is much better after getting medications. Pt now talking 3+ times per breath and speaking in sentences.
--- NOTE | 2022-12-29 12:40 | PC.NURSE ---
Addendum entered by Frandy Hastings R.N. 12/29/22 13:47: Pt's sister was able to confirm that patient does not take a blood thinner for his atrial fibrillation. He is on aspirin daily. Original Note: Patient's sister who arrives states pt is not on home oxygen and has been having increasedSOB the past month.
--- NOTE | 2022-12-29 12:40 | PC.NURSE ---
Pt's sister went to run errands while patient is resting. Pt asleep, see vital flowsheet.
[2022-12-29 12:51] LABS: Reflexed Lactate in 2 Hours Y
--- NOTE | 2022-12-29 13:00 | PC.NURSE ---
Provider at bedside with US for central line placement
--- NOTE | 2022-12-29 13:15 | PC.NURSE ---
Patient now has central line placement performed by Dr. Varner. Patient tolerated procedure well and is sleeping in bed.
[2022-12-29 13:53] LABS: Basophils Absolute Auto 0 /uL (0-100); Basophils Percent Auto 0.5 % (0-2); Eosinophils Absolute Auto 0 /uL (0-450); Eosinophils Percent Auto 0.3 % (2-4); Hematocrit 35.9 % (41-53); Hemoglobin 11.4 g/dL (13.5-17.5); Lymphocytes Absolute Auto 200 /uL (1100-4500); Mean Corpuscular HGB Conc 31.7 % (30-36); Mean Corpuscular Hemoglobin 24.1 PG (26-34); Mean Corpuscular Volume 76.1 fL (80-100); Monocytes Absolute Auto 200 /uL (0-900); Neutrophils Absolute Auto 3400 /uL (1500-7000); Neutrophils Percent Auto 89.2 % (50-75); Platelet Count 167 X10^3/uL (150-400); Red Blood Cell Count 4.71 X10^6/uL (4.5-5.9); Red Cell Distribution Width 21.3 % (11.6-14.8); White Blood Cell Count 3.9 X10^3/uL (4.5-11.0)
[2022-12-29 13:55] LABS: Add Manual Diff / Slide Review SLIDE REVIEW
[2022-12-29 14:05] LABS: Alanine Aminotransferase 29 IU/L (<50); Albumin 2.9 g/dL (3.5-5.0); Alkaline Phosphatase 118 U/L (38-126); Aspartate Aminotransferase 31 IU/L (17-59); BUN Creatinine Ratio 13.5 (6-22); Bilirubin Total 4.4 mg/dL (0.2-1.3); Blood Urea Nitrogen 48 mg/dL (9-20); Calcium 8.9 mg/dL (8.4-10.2); Carbon Dioxide 17 mmol/L (22-32); Chloride 108 mmol/L (98-107); Creatine Kinase 67 U/L (55-170); Estimated Glomerular Filt Rate 17 mL/min (>60); Globulin 2.9 g/dL (1.7-4.1); Glucose 61 mg/dL (80-110); HEMOLYSIS 16 (0-50); Lactate 2HR (Lactic Acid Rflx) 2.6 mmol/L (0.7-2.1); Potassium 3.5 mmol/L (3.4-5.1); Sodium 139 mmol/L (137-145); Total Protein 5.8 g/dL (6.3-8.2)
[2022-12-29 14:17] LABS: Troponin I 0.042 ng/mL (0.01-0.034)
[2022-12-29 14:18] LABS: Acanthocytes 1+; Poikilocytosis 2+
[2022-12-29] MEDS: ACETAMINOPHEN IV 1,000 MG/100 ML VIAL 400 MG IV (14:28)
[2022-12-29] MEDS: SODIUM CHLORIDE 0.9% 1,000 ML 150 ML IV ×2 (14:33→15:37)
--- NOTE | 2022-12-29 15:29 | PC.NURSE ---
I woke patient up to ask if he was feeling worse. Patient denies increased pain or increased SOB. Pt's main complaint is wanting PO water. I told him we have to wait for water.
--- NOTE | 2022-12-29 15:35 | PC.NURSE ---
NS @ 150 cc /hour completed in error. Pt received only 75 cc of order. Unable to edit. New order entered. Dr. dang aware. Please be aware I/Os will be over by 925cc/
[2022-12-29] MEDS: NOREPINEPHRINE BITARTRATE/D5W 4 MG/250 ML PLAST..BAG 27.556 MG IV (15:51)
--- NOTE | 2022-12-29 16:55 | PC.NURSE ---
Pt reports no pain while at rest. When pt presses on his abdomen, his pain increases.
[2022-12-29] MEDS: DEXTROSE 10 % IN WATER 100 ML 1200 ML IV (17:21)
== END 2022-12-29 17:45 | disposition short-term general hospital (02) ==
PROVIDERS: Emergency Provider Emergency Medicine; PCP Family Medicine
DX: N18.9 Chronic kidney disease, unspecified (principal); R65.21 Severe sepsis with septic shock; E16.2 Hypoglycemia, unspecified; K63.1 Perforation of intestine (nontraumatic); R06.02 Shortness of breath; Z20.822 Contact with and (suspected) exposure to COVID-19
CPT/HCPCS: 36415; 36569; 71045; 71250; 74176; 80053; 82550; 82962; 83605; 83690; 83735; 83880; 84484; 85025; 85610; 85730; 86850; 86900; 86901; 87040; 87635; 93005; 96365; 96366; 96367; 96375; 99285; 99291; 99292; C9803; C9113; J0131; J2543